=== PATIENT | male | born 1965 | race Caucasian/White ===

== ENCOUNTER 2019-03-14 06:07 | Inpatient (IN) ==
--- NOTE | 2019-03-02 10:45 | Anesthesiology Consultation ---
Date of Service March 02, 2019 Assessment & Plan Chart Review Chart Review: Acceptable Risk for Surgery and Patient NOT seen in Pre Admission Testing previous surgery canceled because of rash at surgery site History Surgery Operation Date: 03/14/19 07:15 Proposed Procedures p Aorto Bifemoral Bypass - Jose Raymond MD Height/Weight Height: 5 ft 6.5 in Weight: 83.007 kg Allergies Allergy/AdvReac Type Severity Reaction Status Date / Time No Known Allergies Allergy Verified 02/28/19 06:33 Medications Home Medications Medication Instructions Recorded Confirmed Last Taken albuterol sulfate 1 - 2 inh INHALATION UD PRN 02/15/19 03/01/19 02/28/19 05:30 aspirin [Aspir-81] 81 mg PO DAILY 02/15/19 03/01/19 02/28/19 05:30 bupropion HCl (smoking deter) 150 mg PO BID 02/15/19 03/01/19 02/28/19 05:30 cilostazol 100 mg PO BID 02/15/19 03/01/19 02/28/19 05:30 fluticasone propion-salmeterol 1 puff INHALATION BID 02/15/19 03/01/19 02/28/19 05:30 [Advair Diskus] nystatin 1 appln TOP TID #30 gm 02/28/19 03/01/19 Unknown Past Medical History Medical History Asthma Chronic bronchitis Pre-diabetes PVD (peripheral vascular disease) Snores POSSIBLY DX WITH SLEEP APNEA "WHEN I WAS A CHILD" - NO DEVICE Past Family History Family History Brother Family history of diabetes mellitus Brother Family history of diabetes mellitus Sister Family history of diabetes mellitus Grandmother Family history of diabetes mellitus Mother Family history of cancer Past Surgical History Surgical History History of plastic surgery FACIAL RECONSTRUCTION/DENIES LIMITED ROM WITH JAW History of surgery on extremity L LEG/HARDWARE Status post epidural steroid injection HX EPIDURAL STEROID 10 YR AGO Social History Smoking Status: Current every day smoker tobacco type: cigarettes Smoking cigarettes per day: .5PPD - 1PPD/ADVISED NPO Do You Dip or Chew Tobacco: No Hx Alcohol Use: No Hx Substance Use: No substance use type: marijuana Testing Electrocardiogram Date: 02/19/19 Findings: + NSR @ (82bpm) Stress Test Date: 01/30/19 Type: DSE Resting EF: 65% Resting RWMA: + none Pulmonary Function Test Date: 12/21/18 Pre-bronchodilator spirometry reveals a moderate to severe obstructive ventilatory defect even more pronounced at low lung volumes. There was an excellent response to bronchodilators, suggesting a reversible airways component. Lung volumes and diffusion capacity were not measured. Clinical correlation is needed.
--- NOTE | 2019-03-13 17:50 | History & Physical Report ---
Date of Service March 13, 2019 Assessment & Plan (1) Occlusion of aorta: Patient admitted for an aortobifemoral bypass. I have discussed the risks options and benefits of the procedure with the patient. The patient understands the risks options and benefits and agrees to the procedure. History of Present Illness Chief Complaint: Infrarenal aortic occlusion Primary Care Provider: Kelsey Schwartz PA-C Mr. Beard is a 53-year-old gentleman who for the last 2 years has had claudication of his lower extremity is gotten progressively worse. He now can walk a block before he has to stop from his claudication. This starts in his calves and goes up to his thighs. If he goes uphill he can even do a block. He does have pain in his feet at night at least 3 to 4 to 5 days during the week. He denies any tissue loss or discoloration of his feet. He does smoke but at this point he is down to 1/4 pack. Allergies Allergy/AdvReac Type Severity Reaction Status Date / Time No Known Allergies Allergy Verified 02/28/19 06:33 Home Medications Home Medications Medication Instructions Recorded Confirmed Type albuterol sulfate 1 - 2 inh INHALATION UD PRN 02/15/19 03/01/19 History aspirin [Aspir-81] 81 mg PO DAILY 02/15/19 03/01/19 History bupropion HCl (smoking deter) 150 mg PO BID 02/15/19 03/01/19 History cilostazol 100 mg PO BID 02/15/19 03/01/19 History fluticasone propion-salmeterol 1 puff INHALATION BID 02/15/19 03/01/19 History [Advair Diskus] nystatin 1 appln TOP TID #30 gm 02/28/19 03/01/19 Rx Past Med/Surg History Medical History Asthma Chronic bronchitis Pre-diabetes PVD (peripheral vascular disease) Snores POSSIBLY DX WITH SLEEP APNEA "WHEN I WAS A CHILD" - NO DEVICE Surgical History History of plastic surgery FACIAL RECONSTRUCTION/DENIES LIMITED ROM WITH JAW History of surgery on extremity L LEG/HARDWARE Status post epidural steroid injection HX EPIDURAL STEROID 10 YR AGO Family History Brother Family history of diabetes mellitus Brother Family history of diabetes mellitus Sister Family history of diabetes mellitus Grandmother Family history of diabetes mellitus Mother Family history of cancer Social History Preferred Language: [place] Communication Ability: Effective Electro Mechanical Engineer Required: No Beliefs That Will Affect Care: Judaism Judaism Beliefs: YAZIDISM Current Living Situation: Spouse Feels Safe at Home: Yes Smoking Status: Current every day smoker Tobacco Type: cigarettes ; Cigarettes Per Day: .5PPD - 1PPD/ADVISED NPO ; Second Hand Exposure: No ; Hx Alcohol Use: No Hx Substance Use: No Review of Systems All systems reviewed & are unremarkable except as noted in HPI & below Physical Exam Physical Exam: On exam the patient is awake and oriented x3. He is in no apparent distress. His blood pressure is 106/68 on the left 100/64 on the right. Head neck within normal limits he has no carotid bruits. Lungs are clear heart irregular rate and rhythm. Abdominal exam is benign. Radials carotids and superficial temporal arteries are +2 bilaterally. I cannot appreciate pulses in the lower extremity femorals downward. Neurologic exam is grossly intact. He does have normal capillary refill in his feet.
[~2019-03-14 06:07] MED LIST: LR 15ML/HR IV SCH; SODIUM CHLORIDE 0.9% 250 ML IV PRN
[2019-03-14] MEDS ORDERED: PROPOFOL IV EMULSION 10 MG/ML 20 ML VIAL IV ONE (07:05)
[2019-03-14] MEDS ORDERED: MIDAZOLAM HCL 1 MG/ML 2ML VIAL ONE (07:05)
[2019-03-14] MEDS ORDERED: fentaNYL citrate 100 MCG/2 ML VIAL ONE ×2 (07:05→09:52)
[2019-03-14] MEDS ORDERED: LIDOCAINE HCL 2% 2 ML VIAL/AMP(20MG/ML) INFIL ONE (07:05)
[2019-03-14] MEDS ORDERED: DEXAMETHASONE SOD INJ 4 MG/ML VIAL ONE (07:05)
[2019-03-14] MEDS ORDERED: ONDANSETRON INJ 2 MG/ML 2 ML VIAL ONE (07:05)
[2019-03-14] MEDS ORDERED: GELATIN SPONGE SZ 100 ONE ×2 (07:06→12:23)
[2019-03-14] MEDS ORDERED: THROMBIN FOR SOLN 20000 UNIT KIT ONE (07:06)
[2019-03-14] MEDS ORDERED: CEFAZOLIN 250 MG/ML 1 GM VIAL ONE ×2 (07:06→15:22)
[2019-03-14] MEDS ORDERED: HEPARIN (PORCINE) 1000 UNIT/ML 10 ML (CATH LAB USE ONLY) ONE (07:06)
[2019-03-14] MEDS ORDERED: ALBUTEROL 0.083% NEBU SOLN 3 ML VIAL INH PRN (07:10)
[2019-03-14] MEDS ORDERED: ATROPINE SULFATE 0.1 MG/ML 10ML SYR IV PRN (07:10)
[2019-03-14] MEDS ORDERED: ONDANSETRON INJ 2 MG/ML 2 ML VIAL IV PRN ×2 (07:10→15:33)
[2019-03-14] MEDS ORDERED: fentaNYL citrate 100 MCG/2 ML VIAL IV PRN ×2 (07:10→16:42)
[2019-03-14] MEDS ORDERED: HYDROmorphone INJ 2 MG/ML SYR/VIAL IV PRN (07:10)
[2019-03-14] MEDS ORDERED: ALBUT/IPRATROP 3MG/0.5MG NEB 3 ML VIAL NEB STA (07:10)
[2019-03-14] MEDS ORDERED: ePHEDrine sulfate 50 MG/ML AMP IV PRN (07:10)
[2019-03-14] MEDS ORDERED: CEFAZOLIN 2000MG 2,000 MG/15 ML SYR IV ONE ×2 (07:18→11:08)
[2019-03-14] MEDS ORDERED: CEFAZOLIN 2,000 MG/15 ML IV PUSH IV ONE (07:28)
[2019-03-14] MEDS ORDERED: ALBUMIN HUMAN 5% 12.5 GM/250 ML VIAL IV ONE (07:34)
[2019-03-14] MEDS ORDERED: CALCIUM CHLORIDE 10% 10 ML SYR IV ONE ×2 (07:34→12:43)
--- NOTE | 2019-03-14 07:39 | History & Physical Bridge Note ---
Date of Service March 14, 2019 History & Physical Bridge Note I have examined the patient, reviewed the History & Physical and in the interval since the performance of the History & Physical I have noted the following changes of clinical significance: no changes noted
[2019-03-14] MEDS ORDERED: ROCURONIUM BROMIDE 10 MG/ML 5 ML VIAL ONE ×8 (09:13→15:42)
--- NOTE | 2019-03-14 09:59 | Procedure Note ---
Procedure Note Date of Service March 14, 2019 Radial arterial line placed in OR 12 after induction in preparation for aortobifem bypass with Dr. Raymond. Left wrist prepped with chlorhexidine. 20 G angiocath placed under sterile technique utilizing sterile gloves, surgical hats and masks. Catheter threaded using seldinger technique with return of pulsatile, bright red blood. Site covered with occlusive dressing and taped in place. Waveform consistent with correct arterial placement. After placement, fingers of procedural hand had normal perfusion. Patient tolerated procedure well without complications. Alysha Espino MD, PhD Anesthesiologist Coding
[2019-03-14] MEDS ORDERED: HEPARIN SOD (PORCINE) 1000 UNIT/ML 10 ML VIAL ONE ×2 (10:53→11:39)
[2019-03-14] MEDS ORDERED: NITROGLYCERIN 5 MG/ML 10 ML VIAL ONE (12:00)
--- NOTE | 2019-03-14 13:07 | Consultation Report ---
DATE OF CONSULTATION: 03/14/2019 REASON FOR THE CONSULT: Traumatic Maria catheter attempt and need for Maria catheter placement emergently. HISTORY OF PRESENTATION: The patient is a 53-year-old male who presented with a ruptured aortic aneurysm who was urgently taken to the ER. The operating room staff attempted to place a Maria catheter, but met resistance on withdrawing the catheter. There was blood on the catheter and at the meatus. The patient had no obvious history of urologic problems per the chart and the patient was unconscious at the time of arrival. Because of the urgent situation and the blood, I decided to do a flexible cystoscopy in the operating room in the event that the patient had a stricture. I did not want to exacerbate the problem attempting to place another Maria catheter. Cystoscopy was thus performed and no obvious strictures were seen. There was some blood in the urethra, but no strictures were seen and the prostate had a high bladder neck. I did not go into the bladder because of the urgency of the situation. I removed the cystoscope and placed a coude Maria catheter with 16-Upper Sorbian without significant difficulty. At this point, the catheter was stabilized to the leg and the patient was ready for his Emergency procedure. We will be available for followup for this patient should be necessary. Please let us know if further help is needed, would remove the catheter when the patient is ambulatory.
[2019-03-14] MEDS ORDERED: PHENYLEPHRINE HCL 10 MG/ML VIAL ONE ×2 (14:20→14:46)
[2019-03-14] MEDS ORDERED: PROTAMINE SULFATE 10 MG/ML 5 ML VIAL ONE (14:20)
[2019-03-14] MEDS ORDERED: ePHEDrine sulfate 50 MG/ML SYR ONE (14:21)
[2019-03-14] MEDS ORDERED: EPINEPHrine INJ 1 MG/ML AMP ONE (14:21)
[2019-03-14] MEDS ORDERED: NOREPINEPHRINE BITARTRATE 1 MG/ML 4 ML VIAL IV ONE (14:46)
--- NOTE | 2019-03-14 15:33 | Post Operative Brief Note ---
Immediate Post Op Note v1 Date of Surgery March 14, 2019 Pre & Post Diagnosis Operation Date: 03/14/19 07:30 Pre-Op Diagnosis: Infrarenal Aortic Occlusion Post-Op Diagnosis: Infrarenal Aortic Occlusion I identified the patient and participated in the time-out.: Yes Procedure Operation Date: 03/14/19 07:30 Actual Procedures p Aortobifemoral Bypass(Bilateral) - Jose Raymond MD Surgeon Jose Raymond MD Molder Machine MD Donald Estimated Blood Loss 1,000 Findings Consistent with Post-Op Diagnosis Drains Maria Catheter ([address] Escalante. ) Anesthesia Type General Complications none Disposition Accompanied Patient To Recovery: No Disposition: Surgical ICU
[2019-03-14] MEDS ORDERED: D5W AND 1/2NSS 1,000 ML IV SCH (15:45)
--- NOTE | 2019-03-14 16:49 | Critical Care Consultation ---
Date of Consultation March 14, 2019 Assessment & Plan (1) Acute hypoxemic respiratory failure: Currently the patient is intubated and paralyzed. We will use Precedex and fentanyl for both sedation and analgesia, respectively. I have decreased his respiratory rate from 20-16 and effort to reduce air trapping. I have also reduced his tidal volumes to 420 mL. We can likely reduce his tidal volumes further once his oxygen saturations improved. He did receive large amount of volume during the surgery and has some findings of increased interstitial markings on chest x-ray. We will be judicious about further volume administration as needed. We will check a CBC and a CMP. We will check a lactate, troponin and EKG to evaluate for ischemia especially in light of the amount of blood loss he had. He does have a history of pretty significant airflow obstruction with an FEV1 of 35%. I have ordered for duo nebs to be used as needed. Monitor the incision site closely along with the distal pulses. Defer vascular management to Dr. Raymond. We will hopefully be able to perform a spontaneous breathing trial tomorrow morning and extubate him. CRITICAL CARE TIME - I have personally spent 30 minutes of critical care time in the direct management of this patient. This is a life/limb threatening event. This includes time spent evaluating patient, direct bedside care, chart review, placing orders, interpretation of diagnostic studies, discussion with consultants, patient, and family members, as well as other required patient management activities. This time is exclusive of all separately billable procedures, and teaching time and separate from and in addition to any other critical care service time. (2) Acute hypercapnic respiratory failure: (3) Chronic distal aortic occlusion: (4) S/P aortobifemoral bypass surgery: History of Present Illness Reason for Consultation: Ventilator management and blood loss post surgery Requesting Physician: Dr. Raymond Attending Physician: Jose Raymond MD History of Present Illness This is a 53-year-old male with a history of peripheral vascular disease, chronic distal aortic occlusion, severe COPD with an FEV1 of 35% predicted on 12/07/2018 who presents to the ICU status post aortobifemoral byp ass. Estimated blood loss during the procedure was approximately 1 L. He did receive 45 L of total volume which came the form of albumin and crystalloids. Please refer to the EMR and anesthesia charting for further details. There is no family at bedside. The patient is currently paralyzed since receiving rocuronium. Per report from anesthesia, the patient had some trouble with hypercapnic respiratory failure and air trapping and thus the decision was made to keep him intubated overnight. He also had some trouble with hypotension during the procedure and received some boluses of phenylephrine. During my exam his blood pressure was creeping up to the 170s systolically. We gave him a bolus of 50 mcg of fentanyl with improvement of blood pressure. We also obtain a chest x-ray which shows mildly increased interstitial markings. Otherwise review of systems is unable to be obtained due to the patient's current condition. Allergies Allergy/AdvReac Type Severity Reaction Status Date / Time No Known Allergies Allergy Verified 03/14/19 06:29 Home Medications Home Medications Medication Instructions Recorded Confirmed Type albuterol sulfate 1 - 2 inh INHALATION UD PRN 02/15/19 03/14/19 History aspirin [Aspir-81] 81 mg PO DAILY 02/15/19 03/14/19 History bupropion HCl (smoking deter) 150 mg PO BID 02/15/19 03/14/19 History cilostazol 100 mg PO BID 02/15/19 03/14/19 History fluticasone propion-salmeterol 1 puff INHALATION BID 02/15/19 03/14/19 History [Advair Diskus] nystatin 1 appln TOP TID #30 gm 02/28/19 03/14/19 Rx Patient History Medical History Asthma Chronic bronchitis Pre-diabetes PVD (peripheral vascular disease) Snores POSSIBLY DX WITH SLEEP APNEA "WHEN I WAS A CHILD" - NO DEVICE Surgical History History of plastic surgery FACIAL RECONSTRUCTION/DENIES LIMITED ROM WITH JAW History of surgery on extremity L LEG/HARDWARE Status post epidural steroid injection HX EPIDURAL STEROID 10 YR AGO Family History Brother Family history of diabetes mellitus Brother Family history of diabetes mellitus Sister Family history of diabetes mellitus Grandmother Family history of diabetes mellitus Mother Family history of cancer Social History Preferred Language: Japanese Communication Ability: Effective Merchandise Marker Required: No Beliefs That Will Affect Care: Moravian Moravian Beliefs: RASTAFARI Current Living Situation: Spouse Other Information That Helps Us Care for You: No Feels Safe at Home: Yes Safety Concerns: Feels Safe At This Time Smoking Status: Current every day smoker Tobacco Type: cigarettes ; Cigarettes Per Day: .5PPD - 1PPD/ADVISED NPO ; Do You Dip or Chew Tobacco: No ; Second Hand Exposure: No ; Tobacco Cessation Education Requested by Patient: No Hx Alcohol Use: No Hx Substance Use: No Review of Systems Review of Systems: Unobtainable due to endotracheal tube and Unobtainable due to reduced consciousness Physical Exam Constitutional: Patient is intubated and paralyzed with rocuronium. Eyes: Miotic pupils that are sluggish. ENMT: Patient is currently intubated and oral exam is limited. Neck: normal visual inspection Respiratory: Breath sounds equal bilaterally. No wheezes or rhonchi. Cardiovascular: RRR, no murmur, no edema Gastrointestinal (Abdomen): normal bowel sounds, soft, nontender, no hepatosplenomegaly Musculoskeletal: no cyanosis or clubbing, extremities motor strength 5/5 Skin: no rashes, warm and dry Large abdominal incision is present that is covered with a bandage. It is clean dry and intact. Neurologic: Patient is currently paralyzed Psychiatric: Unable to be assessed Results & Data ([facility]) Vital Signs (Past 12 Hours) Vital Signs Temp Pulse Resp BP BP Pulse Ox 03/14/19 16:12 98.2 F 101 H 20 147/85 H 100 03/14/19 06:43 97.7 F 85 16 133/83 93 I personally reviewed his prior echocardiogram, previous notes and chest imaging. Coding Level of Care Code New Pt Critical Care 1st 30-74 mins Patient Type New Diagnoses Acute hypoxemic respiratory failure J96.01 Acute hypercapnic respiratory failure J96.02 Chronic distal aortic occlusion I74.09 S/P aortobifemoral bypass surgery Z95.828 Time Spent (min) 30
[2019-03-14] MEDS ORDERED: SODIUM CHLORIDE 0.9% 250 ML IV PRN ×2 (16:56→18:38)
[2019-03-14 17:00] LABS: iSTAT Arterial Blood Gas HCO3 24 meg/L (19-24); iSTAT Arterial Blood Gas pCO2 57 mmHg (35-46); iSTAT Arterial Blood Gas pH 7.23 (7.35-7.45); iSTAT Arterial Blood Gas pO2 299 mmHg (80-95); iSTAT Carbon Dioxide 26 mmol/L (24-31); iSTAT Hematocrit 35 % (42-52); iSTAT Hemoglobin 11.9 g/dl (14.0-18.0); iSTAT Potassium 5.1 mmol/L (3.3-5.0); iSTAT Sodium 139 mmol/L (135-144)
[2019-03-14 17:00] LABS: iSTAT Arterial Blood Gas HCO3 23 meg/L (19-24); iSTAT Arterial Blood Gas pCO2 57 mmHg (35-46); iSTAT Arterial Blood Gas pO2 408 mmHg (80-95); iSTAT Carbon Dioxide 24 mmol/L (24-31); iSTAT Hematocrit 27 % (42-52); iSTAT Hemoglobin 9.2 g/dl (14.0-18.0); iSTAT Potassium 6.3 mmol/L (3.3-5.0); iSTAT Sodium 138 mmol/L (135-144)
[2019-03-14 17:00] LABS: iSTAT Arterial Blood Gas HCO3 24 meg/L (19-24); iSTAT Arterial Blood Gas pCO2 57 mmHg (35-46); iSTAT Arterial Blood Gas pH 7.23 (7.35-7.45); iSTAT Arterial Blood Gas pO2 293 mmHg (80-95); iSTAT Carbon Dioxide 25 mmol/L (24-31); iSTAT Hematocrit 34 % (42-52); iSTAT Hemoglobin 11.6 g/dl (14.0-18.0); iSTAT Potassium 5.2 mmol/L (3.3-5.0); iSTAT Sodium 139 mmol/L (135-144)
--- NOTE | 2019-03-14 17:01 | XRay Report ---
XR chest 1V portable CLINICAL HISTORY: s/p intubation COMPARISON STUDY: Chest radiograph November 29, 2018. FINDINGS: Tip of endotracheal tube is 5.9 cm above the matthew. Tip of the nasogastric tube is within the gastric fundus. There is no pneumothorax or pleural effusion. There is no evidence for pulmonary edema. Linear right midlung opacity is unchanged. This favors scarring. There are mild bibasilar opac ities. Upper abdominal skin vera are noted. IMPRESSION: 1. Satisfactory positioning of the endotracheal and nasogastric tubes. 2. Mild bibasilar opacities which may reflect atelectasis or consolidation. ACT 112: Negative or not required by law. Electronically signed by: Rhett Patton M.D. 03/14/2019 4:59 PM
[2019-03-14] MEDS: DEXMEDETOMIDINE HCL 200 MCG in SODIUM CHLORIDE 0.9% 48 ML IV SCH ×4 (17:06→23:05)
[2019-03-14] MEDS: fentaNYL DRIP 1,250 MCG/250 ML BAG IV SCH (17:06)
[2019-03-14] MEDS: CEFAZOLIN 2000MG 2,000 MG/15 ML SYR IV SCH (17:07)
--- NOTE | 2019-03-14 17:13 | Anesthesiology Progress Note ---
Date of Service March 14, 2019 Anesthesia Post Procedure Vital Signs Vital Signs: Temp Pulse Pulse Resp BP BP Pulse Ox 03/14/19 16:58 90 17 88 L 03/14/19 16:42 36.4 C L 89 16 128/64 88 L 03/14/19 16:32 90 14 151/73 H 88 L 03/14/19 16:22 102 H 16 171/94 H 97 03/14/19 16:15 20 03/14/19 16:12 36.8 C 101 H 20 147/85 H 100 03/14/19 06:43 36.5 C 85 16 133/83 93 Transfer of Care Handoff Completed per policy Notes Mental Status: see notes below Patient Amnestic to Procedure: Yes Nausea / Vomiting: adequately controlled Pain: adequately controlled Airway Patency, RR, SpO2: see Notes below BP & HR: stable & adequate Hydration State: stable & adequate Anesthetic Complications: no major complications apparent Notes: patient to ICU on vent as planned preoperatively. no pressors. full signout to icu team given. plan for sedation by icu team in place.
[2019-03-14 17:22] LABS: Hematocrit (blood only) 36.6 % (42-52); Hemoglobin 12.1 g/dL (14.0-18.0); Mean Corpuscular Hemoglobin 31.5 pg (25-34); Mean Corpuscular Volume 95.3 fL (80-100); Mean Platelet Volume 9.4 fL (7.4-10.4); Platelet Count 209 K/uL (130-400); RDW Coefficient of Variation 13.5 % (11.5-14.5); Red Blood Count 3.84 M/uL (4.7-6.1); White Blood Count 21.78 K/uL (4.8-10.8)
[2019-03-14 17:29] LABS: Mean Corpuscular Hgb Conc 33.1 g/dL (32-36)
[2019-03-14 17:38] LABS: INR 1.1 (0.9-1.1); Partial Thromboplastin Ratio 1.2; Prothrombin Time 11.4 Seconds (9.0-12.0)
[2019-03-14 17:47] LABS: Basophils # (auto) 0.02 K/uL (0-0.2); Basophils % (auto) 0.1 %; Echinocytes 1+; Immature Granulocytes # (auto) 0.11 K/uL (0.00-0.02); Immature Granulocytes % (auto) 0.5 %; Lymphocytes # (auto) 2.55 K/uL (1.2-3.4); Lymphocytes % (auto) 11.7 %; Monocytes % (auto) 4.6 %; Neutrophils % (auto) 83.1 %
[2019-03-14 17:58] LABS: Alanine Aminotransferase 22 U/L (12-78); Albumin Globulin Ratio 1.4 (0.9-2); Alkaline Phosphatase 55 U/L (45-117); Aspartate Aminotransferase 22 U/L (15-37); BUN Creatinine Ratio 15.5 (10-20); Bilirubin,Total 0.5 mg/dl (0.2-1); Blood Urea Nitrogen 21 mg/dl (7-18); Calcium 7.2 mg/dl (8.5-10.1); Carbon Dioxide 24 mmol/L (21-32); Chloride 113 mmol/L (98-107); Creatinine Clr Calc Pharmacy 65.3 ml/min; Est GFR (African American) 68.2; Est GFR (Non-African American) 58.9; Globulin 2.2 gm/dl (2.5-4.0); Glucose 222 mg/dl (70-99); Magnesium 1.5 mg/dl (1.8-2.4); Potassium 6.5 mmol/L (3.5-5.1); Sodium 138 mmol/L (136-145); Total Protein 5.2 gm/dl (6.4-8.2); Troponin I < 0.015 ng/ml (0-0.045)
[2019-03-14] MEDS ORDERED: SODIUM BICARB 8.4% INJ 50 MEQ/50 ML SYR IV STA ×2 (18:06→21:32)
[2019-03-14] MEDS ORDERED: CALCIUM GLUCONATE 10% 1,000 MG in SODIUM CHLORIDE 0.9% 50 ML IV STA (18:06)
[2019-03-14] MEDS ORDERED: FUROSEMIDE 20 MG in SYRINGE 0 ML IV ONE (18:06)
[2019-03-14] MEDS ORDERED: INSULIN HUMAN REGULAR PER UNIT 10 UNITS in SYRINGE 9.9 ML IV STA (18:17)
[2019-03-14] MEDS ORDERED: DEXTROSE 50% 50 ML SYRINGE IV ONE (18:17)
[2019-03-14 18:40] LABS: Hematocrit (blood only) 38.8 % (42-52); Mean Corpuscular Hemoglobin 31.9 pg (25-34); Mean Corpuscular Volume 95.3 fL (80-100); Mean Platelet Volume 9.7 fL (7.4-10.4); Platelet Count 197 K/uL (130-400); RDW Coefficient of Variation 13.5 % (11.5-14.5); RDW Standard Deviation 47.5 fL (36.4-46.3); Red Blood Count 4.07 M/uL (4.7-6.1)
[2019-03-14] MEDS ORDERED: PNEUMOCOCCAL Polysaccharide Vaccine 25mcg/0.5mL vial/Syr IM ONE (18:45)
[2019-03-14] MEDS ORDERED: PANTOprazole 80 MG in DEXTROSE 5% 100 ML IV SCH (19:00)
[2019-03-14 19:04] LABS: Calcium 7.2 mg/dl (8.5-10.1); Creatinine Clr Calc Pharmacy 58.9 ml/min; Est GFR (African American) 60.2; Est GFR (Non-African American) 51.9; Potassium 6.7 mmol/L (3.5-5.1)
[2019-03-14] MEDS ORDERED: SODIUM CHLORIDE 0.9% 1000ML 1,000 ML IV SCH (19:15)
[2019-03-14 19:17] LABS: Basophils # (auto) 0.02 K/uL (0-0.2); Basophils % (auto) 0.1 %; Immature Granulocytes # (auto) 0.09 K/uL (0.00-0.02); Immature Granulocytes % (auto) 0.4 %; Lymphocytes # (auto) 2.15 K/uL (1.2-3.4); Lymphocytes % (auto) 10.1 %; Mean Corpuscular Hgb Conc 33.5 g/dL (32-36); Monocytes # (auto) 0.85 K/uL (0.11-0.59); Neutrophils # (auto) 18.09 K/uL (1.4-6.5); Neutrophils % (auto) 85.4 %
[2019-03-14] MEDS: NORMOSOL-R 1,000 ML IV SCH (19:29)
[2019-03-14] MEDS ORDERED: NORMOSOL-R 1,000 ML IV ONE ×2 (20:13→21:48)
[2019-03-14] MEDS: ALBUT/IPRATROP 3MG/0.5MG NEB 3 ML VIAL NEB PRN (21:01)
[2019-03-14] MEDS ORDERED: GLUCOSE 10 TABS/TUBE PO PRN (21:26)
[2019-03-14] MEDS ORDERED: GLUCAGON FOR INJ 1 MG VIAL SQ PRN (21:26)
[2019-03-14] MEDS ORDERED: GLUCOSE 40% GEL 15 GM TUBE PO PRN (21:26)
[2019-03-14] MEDS ORDERED: CARBOHYDRATES FOR HYPOGLYCEMIA PO PRN (21:26)
[2019-03-14] MEDS ORDERED: DEXTROSE 50% 50 ML SYRINGE IV PRN (21:26)
[2019-03-14] MEDS: PHENYLEPHRINE HCL 20 MG in DEXTROSE 5% 500 ML IV SCH (21:51)
[2019-03-14] MEDS: INSULIN GLARGINE SOLOSTAR 100 UNITS/ML 3 ML PEN SC SCH (21:57)
[2019-03-14] MEDS: INSULIN ASPART 100 UNITS/ML 3 ML PEN SC SCH (21:59)
[2019-03-14] MEDS: PANTOprazole 40 MG in SYRINGE 0 ML IV SCH (22:20)
[2019-03-14 23:01] LABS: Hematocrit (blood only) 29.7 % (42-52); Hemoglobin 10.1 g/dL (14.0-18.0)
[2019-03-14 23:15] LABS: BUN Creatinine Ratio 14.2 (10-20); Calcium 6.5 mg/dl (8.5-10.1); Creatinine Clr Calc Pharmacy 55.2 ml/min; Est GFR (African American) 55.7; Est GFR (Non-African American) 48.1; Potassium 5.1 mmol/L (3.5-5.1)
[2019-03-14 23:38] LABS: Troponin I 0.025 ng/ml (0-0.045)
[2019-03-15] MEDS ORDERED: NORMOSOL-R 1,000 ML IV ONE (00:49)
[2019-03-15] MEDS: DEXMEDETOMIDINE HCL 200 MCG in SODIUM CHLORIDE 0.9% 48 ML IV SCH ×6 (00:53→17:57)
[2019-03-15] MEDS: NORMOSOL-R 1,000 ML IV SCH ×3 (01:46→17:10)
[2019-03-15] MEDS: fentaNYL DRIP 1,250 MCG/250 ML BAG IV SCH (01:46)
[2019-03-15] MEDS: CEFAZOLIN 2000MG 2,000 MG/15 ML SYR IV SCH ×2 (01:46→09:33)
[2019-03-15] MEDS: ALBUT/IPRATROP 3MG/0.5MG NEB 3 ML VIAL NEB PRN ×5 (02:13→23:12)
[2019-03-15 03:26] LABS: Basophils # (auto) 0.01 K/uL (0-0.2); Basophils % (auto) 0.1 %; Hematocrit (blood only) 31.1 % (42-52); Hemoglobin 10.8 g/dL (14.0-18.0); Immature Granulocytes # (auto) 0.04 K/uL (0.00-0.02); Immature Granulocytes % (auto) 0.3 %; Lymphocytes # (auto) 1.09 K/uL (1.2-3.4); Lymphocytes % (auto) 7.9 %; Mean Corpuscular Hgb Conc 34.7 g/dL (32-36); Mean Platelet Volume 9.1 fL (7.4-10.4); Monocytes # (auto) 1.57 K/uL (0.11-0.59); Monocytes % (auto) 11.3 %; Neutrophils # (auto) 11.13 K/uL (1.4-6.5); Neutrophils % (auto) 80.4 %; Platelet Count 179 K/uL (130-400); RDW Coefficient of Variation 13.6 % (11.5-14.5); RDW Standard Deviation 45.4 fL (36.4-46.3); Red Blood Count 3.38 M/uL (4.7-6.1); White Blood Count 13.84 K/uL (4.8-10.8)
[2019-03-15 03:35] LABS: Base Excess ABG -5.3 mEq/L (-9-1.8); HCO3 ABG 22 mmol/L (19-24); Oxygen Saturation ABG 92.9 % (90-95); PCO2 ABG 50 mmHg (35-46); PO2 ABG 69 mmHg (80-95); pH ABG 7.26 (7.35-7.45)
[2019-03-15 03:38] LABS: Allen Test POS (Pos)
[2019-03-15 03:46] LABS: BUN Creatinine Ratio 12.9 (10-20); Blood Urea Nitrogen 22 mg/dl (7-18); Calcium 6.4 mg/dl (8.5-10.1); Carbon Dioxide 22 mmol/L (21-32); Chloride 110 mmol/L (98-107); Creatinine Clr Calc Pharmacy 52.3 ml/min; Est GFR (African American) 52.2; Glucose 166 mg/dl (70-99); Sodium 140 mmol/L (136-145)
[2019-03-15 03:50] LABS: Troponin I < 0.015 ng/ml (0-0.045)
[2019-03-15] MEDS ORDERED: CALCIUM GLUCONATE 10% 1,000 MG in SODIUM CHLORIDE 0.9% 50 ML IV STA (04:21)
[2019-03-15] MEDS ORDERED: ALBUMIN 25% 50 ML with FUROSEMIDE 20 MG IV ONE (04:30)
[2019-03-15 04:44] LABS: Magnesium 1.6 mg/dl (1.8-2.4); Phosphorus 2.8 mg/dl (2.5-4.9)
[2019-03-15] MEDS: INSULIN ASPART 100 UNITS/ML 3 ML PEN SC SCH ×4 (05:36→21:04)
[2019-03-15] MEDS: PHENYLEPHRINE HCL 20 MG in DEXTROSE 5% 500 ML IV SCH ×2 (05:36→17:44)
[2019-03-15] MEDS: MAGNESIUM SULFATE / D5W 1 GM/100 ML BAG IV SCH ×3 (06:40→08:47)
--- NOTE | 2019-03-15 07:37 | XRay Report ---
XR chest 1V portable HISTORY: Resp failure COMPARISON: Chest 03/14/2019. FINDINGS: The nasogastric tube terminates in the stomach. Skin vera seen within the epigastric reg ion. Endotracheal tube terminates 3.3 cm from the matthew. Hazy appearance to the right midlung zone a nd right lung base. There is also small patchy airspace opacity within the left lung base medially. N o evidence for pulmonary edema. No pleural effusions. No pneumothorax. The heart is normal in size. IMPRESSION: 1. Satisfactory support line placement. 2. Hazy airspace opacity within the lung bases and right midlung zone. This could represent atelectas is or pneumonia. ACT 112: Negative or not required by law. Electronically signed by: Senthil Calle M.D. 03/15/2019 7:36 AM
[2019-03-15 07:53] LABS: Hematocrit (blood only) 28.8 % (42-52); Hemoglobin 9.8 g/dL (14.0-18.0)
--- NOTE | 2019-03-15 08:19 | Anesthesiology Progress Note ---
Date of Service March 15, 2019 Anesthesia Post Procedure Vital Signs Vital Signs: Temp Pulse Pulse Pulse Resp BP BP 03/15/19 06:55 91 H 13 03/15/19 06:03 90 12 03/15/19 06:02 91 H 12 111/54 L 03/15/19 04:54 88 12 106/61 03/15/19 04:45 90 12 03/15/19 04:30 90 12 03/15/19 04:24 83 12 88/64 L 03/15/19 04:15 73 12 03/15/19 04:00 36.7 C 88 12 03/15/19 03:54 88 12 106/86 03/15/19 03:45 90 14 03/15/19 03:30 91 H 12 03/15/19 03:24 88 12 110/60 03/15/19 03:15 84 12 03/15/19 03:00 84 12 03/15/19 02:56 86 22 03/15/19 02:54 90 14 89/62 L 03/15/19 02:45 85 14 03/15/19 02:30 88 16 03/15/19 02:24 87 16 106/70 03/15/19 02:15 85 16 03/15/19 02:13 85 21 03/15/19 02:00 83 20 03/15/19 01:54 86 16 102/65 03/15/19 01:45 82 16 03/15/19 01:30 82 16 03/15/19 01:24 84 16 99/68 L 03/15/19 01:15 81 16 03/15/19 01:00 82 85 16 111/66 03/15/19 00:53 80 17 111/66 03/15/19 00:45 87 17 03/15/19 00:38 87 16 91/64 L 03/15/19 00:30 84 18 03/15/19 00:23 86 16 95/66 L 03/15/19 00:15 88 16 03/15/19 00:08 85 16 100/68 03/15/19 00:00 36.5 C 85 17 03/14/19 23:53 90 17 115/48 L 03/14/19 23:45 90 16 03/14/19 23:39 88 16 100/53 L 03/14/19 23:30 87 16 03/14/19 23:15 81 16 03/14/19 23:08 89 16 100/66 03/14/19 23:00 91 H 16 03/14/19 22:55 90 16 03/14/19 22:54 92 H 17 107/65 03/14/19 22:52 86 18 03/14/19 22:45 84 18 03/14/19 22:38 86 20 102/73 03/14/19 22:30 92 H 20 03/14/19 22:23 89 18 122/77 03/14/19 22:15 85 18 03/14/19 22:09 88 17 03/14/19 22:08 87 17 118/91 03/14/19 22:00 86 17 03/14/19 21:53 88 17 93/57 L 03/14/19 21:45 91 H 17 03/14/19 21:38 90 17 75/55 L 03/14/19 21:30 89 17 03/14/19 21:23 90 17 80/57 L 03/14/19 21:17 87 19 03/14/19 21:15 88 17 03/14/19 21:08 92 H 18 88/58 L 03/14/19 21:00 88 17 03/14/19 20:53 88 17 94/62 L 03/14/19 20:45 91 H 17 03/14/19 20:38 90 17 92/42 L 03/14/19 20:30 89 91 H 20 92/42 L 03/14/19 20:23 93 H 99/59 L 03/14/19 20:15 88 03/14/19 20:08 92 H 99/58 L 03/14/19 20:00 36.5 C 97 H 03/14/19 19:53 85 81/59 L 03/14/19 19:45 86 03/14/19 19:37 96 H 115/83 03/14/19 19:33 87 100/62 03/14/19 19:30 88 03/14/19 19:28 82 100/62 03/14/19 19:23 91 H 110/68 03/14/19 19:19 88 80/48 L 03/14/19 19:16 92 H 03/14/19 19:15 90 94/51 L 03/14/19 19:13 94 H 94/58 L 03/14/19 19:08 96 H 92/57 L 03/14/19 19:00 90 03/14/19 18:53 93 H 86/65 L 03/14/19 18:51 92 H 72/53 L 03/14/19 18:46 36.4 C L 94 H 89/55 L 03/14/19 18:45 95 H 03/14/19 18:38 94 H 95/64 L 03/14/19 18:37 95 H 97/53 L 03/14/19 18:31 95 H 03/14/19 18:30 95 H 96/57 L 03/14/19 18:23 94 H 115/64 03/14/19 18:15 100 H 03/14/19 18:08 93 H 111/69 03/14/19 18:00 93 H 03/14/19 17:53 90 120/65 03/14/19 17:45 36.5 C 91 H 03/14/19 17:41 16 03/14/19 17:38 90 119/63 03/14/19 17:31 90 03/14/19 17:30 36.4 C L 90 120/65 03/14/19 17:23 36.4 C L 90 120/59 L 03/14/19 17:18 36.4 C L 88 16 135/85 03/14/19 17:15 36.4 C L 90 03/14/19 17:08 90 135/65 03/14/19 17:02 90 03/14/19 16:58 90 17 03/14/19 16:53 89 128/64 03/14/19 16:42 36.4 C L 89 16 128/64 03/14/19 16:32 90 14 151/73 H 03/14/19 16:22 102 H 16 171/94 H 03/14/19 16:15 20 03/14/19 16:12 36.8 C 101 H 20 147/85 H Pulse Ox 03/15/19 06:55 96 03/15/19 06:03 97 03/15/19 06:02 94 03/15/19 04:54 93 03/15/19 04:45 94 03/15/19 04:30 93 03/15/19 04:24 93 03/15/19 04:15 92 03/15/19 04:00 94 03/15/19 03:54 94 03/15/19 03:45 94 03/15/19 03:30 94 03/15/19 03:24 94 03/15/19 03:15 96 03/15/19 03:00 95 03/15/19 02:56 93 03/15/19 02:54 93 03/15/19 02:45 94 03/15/19 02:30 92 03/15/19 02:24 92 03/15/19 02:15 93 03/15/19 02:13 96 03/15/19 02:00 95 03/15/19 01:54 96 03/15/19 01:45 95 03/15/19 01:30 96 03/15/19 01:24 97 03/15/19 01:15 96 03/15/19 01:00 95 03/15/19 00:53 97 03/15/19 00:45 96 03/15/19 00:38 97 03/15/19 00:30 94 03/15/19 00:23 96 03/15/19 00:15 95 03/15/19 00:08 96 03/15/19 00:00 95 03/14/19 23:53 96 03/14/19 23:45 96 03/14/19 23:39 97 03/14/19 23:30 96 03/14/19 23:15 97 03/14/19 23:08 03/14/19 23:00 96 03/14/19 22:55 96 03/14/19 22:54 97 03/14/19 22:52 96 03/14/19 22:45 96 03/14/19 22:38 97 03/14/19 22:30 96 03/14/19 22:23 97 03/14/19 22:15 98 03/14/19 22:09 99 03/14/19 22:08 99 03/14/19 22:00 97 03/14/19 21:53 96 03/14/19 21:45 95 03/14/19 21:38 94 03/14/19 21:30 94 03/14/19 21:23 94 03/14/19 21:17 91 03/14/19 21:15 94 03/14/19 21:08 95 03/14/19 21:00 94 03/14/19 20:53 94 02/05/20 20:45 94 03/14/19 20:38 93 03/14/19 20:30 94 03/14/19 20:23 94 03/14/19 20:15 95 03/14/19 20:08 95 03/14/19 20:00 94 03/14/19 19:53 96 03/14/19 19:45 95 03/14/19 19:37 97 03/14/19 19:33 96 03/14/19 19:30 95 03/14/19 19:28 96 03/14/19 19:23 96 03/14/19 19:19 94 03/14/19 19:16 93 03/14/19 19:15 93 03/14/19 19:13 93 03/14/19 19:08 93 03/14/19 19:00 90 03/14/19 18:53 90 03/14/19 18:51 91 03/14/19 18:46 90 03/14/19 18:45 90 03/14/19 18:38 89 L 03/14/19 18:37 88 L 03/14/19 18:31 03/14/19 18:30 03/14/19 18:23 03/14/19 18:15 87 L 03/14/19 18:08 87 L 03/14/19 18:00 88 L 03/14/19 17:53 86 L 03/14/19 17:45 86 L 03/14/19 17:41 03/14/19 17:38 86 L 03/14/19 17:31 86 L 03/14/19 17:30 85 L 03/14/19 17:23 85 L 03/14/19 17:18 88 L 03/14/19 17:15 84 L 03/14/19 17:08 86 L 03/14/19 17:02 86 L 03/14/19 16:58 88 L 03/14/19 16:53 86 L 03/14/19 16:42 88 L 03/14/19 16:32 88 L 03/14/19 16:22 97 03/14/19 16:15 03/14/19 16:12 100 Notes Mental Status: alert / awake / arousable and participated in evaluation Patient Amnestic to Procedure: Yes Nausea / Vomiting: adequately controlled Pain: adequately controlled Airway Patency, RR, SpO2: see Notes below BP & HR: stable & adequate Hydration State: stable & adequate Anesthetic Complications: see Notes below Notes: Pt remains intubated in ICU due to hypercapnia during anesthesia for abdominal aortic aneurysm on 03/14/19. Pt alert and per RN, with good respiratory effort, possible extubation today. No other anesthesia complications apparent.
[2019-03-15 08:28] LABS: BUN Creatinine Ratio 13.2 (10-20); Calcium 6.7 mg/dl (8.5-10.1); Creatinine Clr Calc Pharmacy 51.7 ml/min; Est GFR (African American) 49.7; Est GFR (Non-African American) 42.9
[2019-03-15] MEDS: PANTOprazole 40 MG in SYRINGE 0 ML IV SCH ×2 (08:39→22:31)
--- NOTE | 2019-03-15 09:14 | Critical Care Progress Note ---
Date of Service March 15, 2019 Assessment & Plan (1) Acute hypoxemic respiratory failure: Patient is tolerating CPAP well. We will extubate him directly to BiPAP. Continue duo nebs PRN. He will need to be on Umeclidinium inhaled once daily. His creatinine has worsened a bit, but his potassium are improving and his urine output is also improving.. His potassium is improved. Blood pressure control per Dr. Raymond. He is receiving some Bumex for volume overload. Troponin has been unremarkable. Hemoglobin has trended down to 9.8 but appears to be stable with no active blood loss. No need for transfusion at this time. Disposition per Dr. Raymond. CRITICAL CARE TIME - I have personally spent 30 minutes of critical care time in the direct management of this patient. This is a life/limb threatening event. This includes time spent evaluating patient, direct bedside care, chart review, placing orders, interpretation of diagnostic studies, discussion with consultants, patient, and family members, as well as other required patient management activities. This time is exclusive of all separately billable procedures, and teaching time and separate from and in addition to any other critical care service time. (2) Acute hypercapnic respiratory failure: (3) Chronic distal aortic occlusion: (4) S/P aortobifemoral bypass surgery: Subjective Patient seen and examined this morning. He is off of his fentanyl and currently on Precedex. He is alert and awake. He is able to follow commands. He would like the breathing tube out. He has been on a CPAP trial for the last 4 hours. He did have some hypotension overnight and received some fluid, albumin boluses. He also received Lasix. He did have some issues with hyperkalemia last night as well which is improving. He denies any pain. He is a bit anxious. He is still on a low-dose of phenylephrine. Review of Systems Review of Systems: Unobtainable due to endotracheal tube Physical Exam Constitutional: Endotracheal tube in place. Neck: normal visual inspection Cardiovascular: RRR, no murmur, no edema Gastrointestinal (Abdomen): normal bowel sounds, soft, nontender, no hepatosplenomegaly Large bandage over the abdominal wound. Musculoskeletal: no cyanosis or clubbing, extremities motor strength 5/5 Skin: no rashes, warm and dry Neurologic: He is following commands appropriately. He is alert. Results & Data ([facility]) Vital Signs (Past 12 Hours) Vital Signs Temp Pulse Pulse Resp BP BP Pulse Ox 03/15/19 06:55 91 H 13 96 03/15/19 06:03 90 12 97 03/15/19 06:02 91 H 12 111/54 L 94 03/15/19 04:54 88 12 106/61 93 03/15/19 04:45 90 12 94 03/15/19 04:30 90 12 93 03/15/19 04:24 83 12 88/64 L 93 03/15/19 04:15 73 12 92 03/15/19 04:00 98.1 F 88 12 94 03/15/19 03:54 88 12 106/86 94 03/15/19 03:45 90 14 94 03/15/19 03:30 91 H 12 94 03/15/19 03:24 88 12 110/60 94 03/15/19 03:15 84 12 96 03/15/19 03:00 84 12 95 03/15/19 02:56 86 22 93 03/15/19 02:54 90 14 89/62 L 93 03/15/19 02:45 85 14 94 03/15/19 02:30 88 16 92 03/15/19 02:24 87 16 106/70 92 03/15/19 02:15 85 16 93 03/15/19 02:13 85 21 96 03/15/19 02:00 83 20 95 03/15/19 01:54 86 16 102/65 96 03/15/19 01:45 82 16 95 03/15/19 01:30 82 16 96 03/15/19 01:24 84 16 99/68 L 97 03/15/19 01:15 81 16 96 03/15/19 01:00 82 85 16 111/66 95 03/15/19 00:53 80 17 111/66 97 03/15/19 00:45 87 17 96 03/15/19 00:38 87 16 91/64 L 97 03/15/19 00:30 84 18 94 03/15/19 00:23 86 16 95/66 L 96 03/15/19 00:15 88 16 95 03/15/19 00:08 85 16 100/68 96 03/15/19 00:00 97.7 F 85 17 95 03/14/19 23:53 90 17 115/48 L 96 03/14/19 23:45 90 16 96 03/14/19 23:39 88 16 100/53 L 97 03/14/19 23:30 87 16 96 03/14/19 23:15 81 16 97 03/14/19 23:08 89 16 100/66 03/14/19 23:00 91 H 16 96 03/14/19 22:55 90 16 96 03/14/19 22:54 92 H 17 107/65 97 03/14/19 22:52 86 18 96 03/14/19 22:45 84 18 96 03/14/19 22:38 86 20 102/73 97 03/14/19 22:30 92 H 20 96 03/14/19 22:23 89 18 122/77 97 03/14/19 22:15 85 18 98 03/14/19 22:09 88 17 99 03/14/19 22:08 87 17 118/91 99 03/14/19 22:00 86 17 97 03/14/19 21:53 88 17 93/57 L 96 03/14/19 21:45 91 H 17 95 03/14/19 21:38 90 17 75/55 L 94 03/14/19 21:30 89 17 94 03/14/19 21:23 90 17 80/57 L 94 03/14/19 21:17 87 19 91 03/14/19 21:15 88 17 94 Coding Level of Care Code Critical Care 1st 30-74 mins Diagnoses Acute hypoxemic respiratory failure J96.01 Acute hypercapnic respiratory failure J96.02 Chronic distal aortic occlusion I74.09 S/P aortobifemoral bypass surgery Z95.828 Time Spent (min) 30
[2019-03-15] MEDS ORDERED: BUMETANIDE 1 MG in SYRINGE 0 ML IV ONE (09:15)
[2019-03-15] MEDS: MoRPHine SULFATE 4 MG/ML 1 ML CARP\\VIAL IV PRN ×3 (12:35→20:54)
--- NOTE | 2019-03-15 13:13 | Electrocardiogram Report ---
Test Reason : Blood Pressure : / mmHG Vent. Rate : 099 BPM Atrial Rate : 099 BPM P-R Int : 154 ms QRS Dur : 076 ms QT Int : 340 ms P-R-T Axes : 068 027 065 degrees QTc Int : 436 ms Normal sinus rhythm Low voltage QRS Borderline ECG When compared with ECG of 19-FEB-2019 13:31, No significant change was found Confirmed by Kody Garcia ([id number]) on 03/15/2019 1:12:40 PM Referred By: Jose Raymond Confirmed By:Kody Garcia
--- NOTE | 2019-03-15 15:15 | Surgery Progress Note ---
Date of Service March 15, 2019 Assessment & Plan (1) Occlusion of aorta: Patient is stabilized on his first day postoperatively after fluid resuscitation. His creatinine still is slightly elevated however his urine output has picked up. His blood pressure is stable on off pressors at this time. He was given a dose of Lasix followed by a dose of Bumex this morning. We will continue with gentle diuresis over the next few days. Subjective Patient is now extubated. He is awake and alert and answering questions appropriately. He does complain of some abdominal discomfort. He denies any leg pain. Physical Exam Physical Exam: On exam he is awake and alert. He has decreased breath sounds in a few crackles in both lungs. Abdomen is distended. Is tender to palpation however it is soft. No bowel sounds are heard. He does have good Doppler pulses in both feet. His urine output has increased. He is now off the Levophed and his blood p ressure is stable. Constitutional: WD/WN, vitals as above Results & Data Vital Signs (Past 12 Hours) Vital Signs Temp Pulse Pulse Resp BP BP Pulse Ox 03/15/19 13:54 103 H 17 99/57 L 03/15/19 13:48 103 H 21 92 03/15/19 13:42 105 H 21 91 03/15/19 13:26 108 H 15 92 03/15/19 13:25 110 H 16 101/71 92 03/15/19 13:00 111 H 14 91 03/15/19 12:54 113 H 14 93/72 L 95 03/15/19 12:30 101 H 17 91 03/15/19 12:24 105 H 20 108/76 93 03/15/19 11:54 37.5 C 99 H 17 121/77 91 03/15/19 11:25 99 H 20 93 03/15/19 11:24 99 H 21 104/84 93 03/15/19 10:54 92 H 18 104/62 94 03/15/19 10:52 93 H 26 H 93 03/15/19 10:24 88 16 114/58 L 91 03/15/19 09:54 37.6 C H 97 H 15 93/60 L 89 L 03/15/19 09:44 96 H 17 82/53 L 92 03/15/19 09:43 94 H 89/62 L 92 03/15/19 09:35 93 H 21 96 02/06/20 09:30 93 H 96 03/15/19 09:25 121 H 95/71 L 98 03/15/19 08:54 90 97/73 L 89 L 03/15/19 08:24 88 103/62 89 L 03/15/19 07:54 92 H 105/73 93 03/15/19 07:46 37.4 C 90 103/66 92 03/15/19 07:30 90 03/15/19 07:25 96 H 90/36 L 96 03/15/19 06:55 91 H 13 96 03/15/19 06:03 90 12 97 03/15/19 06:02 91 H 12 111/54 L 94 03/15/19 04:54 88 12 106/61 93 03/15/19 04:45 90 12 94 03/15/19 04:30 90 12 93 03/15/19 04:24 83 12 88/64 L 93 03/15/19 04:15 73 12 92 03/15/19 04:00 36.7 C 88 12 94 03/15/19 03:54 88 12 106/86 94 03/15/19 03:45 90 14 94 03/15/19 03:30 91 H 12 94 03/15/19 03:24 88 12 110/60 94 03/15/19 03:15 84 12 96
[2019-03-15 16:23] LABS: iSTAT Hematocrit 34 % (42-52); iSTAT Hemoglobin 11.6 g/dl (14.0-18.0); iSTAT Potassium 6.5 mmol/L (3.3-5.0); iSTAT Sodium 138 mmol/L (135-144)
[2019-03-15 16:24] LABS: Patient Temperature 36.6; iSTAT Art Bld Gas pCO2 Correct 67 mmHg (35-46); iSTAT Arterial Blood Gas HCO3 21 meg/L (19-24); iSTAT Arterial Blood Gas pCO2 68 mmHg (35-46); iSTAT Arterial Blood Gas pO2 60 mmHg (80-95); iSTAT Arterial Blood Gas pO2 C 59; iSTAT Carbon Dioxide 23 mmol/L (24-31)
[2019-03-15 16:25] LABS: iSTAT Allen Test Not Performed; iSTAT Sample Type Arterial; iSTAT Site Art Line; iSTAT SpO2 86
[2019-03-15 16:26] LABS: iSTAT Hemoglobin 11.6 g/dl (14.0-18.0); iSTAT Potassium 6.8 mmol/L (3.3-5.0); iSTAT Sodium 136 mmol/L (135-144)
[2019-03-15 16:27] LABS: Patient Temperature 36.3; iSTAT Art Bld Gas pCO2 Correct 52 mmHg (35-46); iSTAT Art Bld Gas pH Corrected 7.177 (7.35-7.45); iSTAT Arterial Blood Gas HCO3 19 meg/L (19-24); iSTAT Arterial Blood Gas pCO2 53 mmHg (35-46); iSTAT Arterial Blood Gas pH 7.17 (7.35-7.45); iSTAT Arterial Blood Gas pO2 68 mmHg (80-95); iSTAT Arterial Blood Gas pO2 C 65; iSTAT Carbon Dioxide 21 mmol/L (24-31); iSTAT FiO2 60 %; iSTAT Hematocrit 34 % (42-52)
[2019-03-15 16:28] LABS: iSTAT Allen Test Not Performed; iSTAT Sample Type Arterial; iSTAT Site Art Line
[2019-03-15 16:29] LABS: iSTAT SpO2 91
[2019-03-15 16:29] LABS: iSTAT Hematocrit 27 % (42-52); iSTAT Hemoglobin 9.2 g/dl (14.0-18.0); iSTAT Potassium 5.3 mmol/L (3.3-5.0); iSTAT Sodium 139 mmol/L (135-144)
[2019-03-15 16:30] LABS: iSTAT Art Bld Gas pCO2 Correct 48 mmHg (35-46); iSTAT Arterial Blood Gas HCO3 19 meg/L (19-24); iSTAT Arterial Blood Gas pCO2 49 mmHg (35-46); iSTAT Arterial Blood Gas pO2 68 mmHg (80-95); iSTAT Arterial Blood Gas pO2 C 65; iSTAT Carbon Dioxide 21 mmol/L (24-31)
[2019-03-15 16:32] LABS: Patient Temperature 36.4; iSTAT Allen Test Not Performed; iSTAT FiO2 50 %; iSTAT Sample Type Arterial
[2019-03-15 16:33] LABS: iSTAT Site Art Line; iSTAT SpO2 94
[2019-03-15 16:34] LABS: iSTAT Art Bld Gas pCO2 Correct 49 mmHg (35-46); iSTAT Art Bld Gas pH Corrected 7.246 (7.35-7.45); iSTAT Arterial Blood Gas HCO3 21 meg/L (19-24); iSTAT Arterial Blood Gas pCO2 50 mmHg (35-46); iSTAT Arterial Blood Gas pH 7.24 (7.35-7.45); iSTAT Arterial Blood Gas pO2 65 mmHg (80-95); iSTAT Arterial Blood Gas pO2 C 62; iSTAT Carbon Dioxide 23 mmol/L (24-31); iSTAT Hematocrit 29 % (42-52); iSTAT Hemoglobin 9.9 g/dl (14.0-18.0); iSTAT Sodium 139 mmol/L (135-144)
[2019-03-15 16:35] LABS: Patient Temperature 36.4; iSTAT Allen Test Not Performed; iSTAT FiO2 50 %; iSTAT Sample Type Arterial; iSTAT Site Art Line
[2019-03-15 16:36] LABS: iSTAT Sodium 138 mmol/L (135-144)
[2019-03-15 16:36] LABS: iSTAT SpO2 96
[2019-03-15 16:37] LABS: Patient Temperature 36.4; iSTAT Art Bld Gas pCO2 Correct 50 mmHg (35-46); iSTAT Art Bld Gas pH Corrected 7.232 (7.35-7.45); iSTAT Arterial Blood Gas HCO3 21 meg/L (19-24); iSTAT Arterial Blood Gas pCO2 52 mmHg (35-46); iSTAT Arterial Blood Gas pH 7.22 (7.35-7.45); iSTAT Arterial Blood Gas pO2 73 mmHg (80-95); iSTAT Arterial Blood Gas pO2 C 70; iSTAT Carbon Dioxide 23 mmol/L (24-31); iSTAT FiO2 50 %; iSTAT Hematocrit 28 % (42-52); iSTAT Hemoglobin 9.5 g/dl (14.0-18.0); iSTAT Potassium 4.8 mmol/L (3.3-5.0)
[2019-03-15 16:38] LABS: iSTAT Allen Test Not Performed; iSTAT Sample Type Arterial; iSTAT Site Art Line; iSTAT SpO2 94
[2019-03-15] MEDS: BUDESONIDE 0.5 MG/2 ML VIAL (PULMICORT) NEB SCH (19:01)
[2019-03-15] MEDS: INSULIN GLARGINE SOLOSTAR 100 UNITS/ML 3 ML PEN SC SCH (21:04)
[2019-03-16] MEDS: MoRPHine SULFATE 4 MG/ML 1 ML CARP\\VIAL IV PRN ×3 (02:54→07:52)
[2019-03-16] MEDS: NORMOSOL-R 1,000 ML IV SCH (02:54)
[2019-03-16] MEDS: ALBUT/IPRATROP 3MG/0.5MG NEB 3 ML VIAL NEB PRN ×3 (03:30→19:01)
[2019-03-16 04:38] LABS: Basophils # (auto) 0.01 K/uL (0-0.2); Basophils % (auto) 0.1 %; Hematocrit (blood only) 25.5 % (42-52); Hemoglobin 8.5 g/dL (14.0-18.0); Immature Granulocytes # (auto) 0.06 K/uL (0.00-0.02); Immature Granulocytes % (auto) 0.4 %; Lymphocytes # (auto) 0.73 K/uL (1.2-3.4); Lymphocytes % (auto) 4.7 %; Mean Corpuscular Hemoglobin 31.4 pg (25-34); Mean Corpuscular Hgb Conc 33.3 g/dL (32-36); Mean Corpuscular Volume 94.1 fL (80-100); Mean Platelet Volume 9.2 fL (7.4-10.4); Monocytes % (auto) 15.6 %; Neutrophils # (auto) 12.19 K/uL (1.4-6.5); Neutrophils % (auto) 79.2 %; Platelet Count 127 K/uL (130-400); RDW Coefficient of Variation 14.3 % (11.5-14.5); Red Blood Count 2.71 M/uL (4.7-6.1); White Blood Count 15.39 K/uL (4.8-10.8)
[2019-03-16 05:03] LABS: Calcium 6.7 mg/dl (8.5-10.1); Creatinine Clr Calc Pharmacy 53.2 ml/min; Est GFR (African American) 51.5; Est GFR (Non-African American) 44.4; Magnesium 2.6 mg/dl (1.8-2.4); Potassium 4.5 mmol/L (3.5-5.1)
[2019-03-16 05:04] LABS: Phosphorus 3.1 mg/dl (2.5-4.9)
[2019-03-16] MEDS ORDERED: CALCIUM GLUCONATE 10% 1,000 MG in SODIUM CHLORIDE 0.9% 50 ML IV STA (05:16)
--- NOTE | 2019-03-16 06:59 | XRay Report ---
XR chest 1V portable HISTORY: 53 years-old Male f/u follow-up study in a patient with recent respiratory failure COMPARISON: Chest radiograph 03/15/2019 TECHNIQUE: AP view of the chest FINDINGS: Interval extubation. Enteric tube is again noted with distal tip projecting over the abdominal left u pper quadrant. Surgical vera project over the upper abdomen midline. Mild persistent right midlung and bibasilar opacities. No pneumothorax, large pleural effusion or overt pulmonary edema. Bones frieda ear grossly intact. IMPRESSION: 1. Interval extubation. 2. Mild persistent bibasilar and right midlung opacities. ACT 112: Negative or not required by law. The above report was generated using voice recognition software. It may contain grammatical, syntax o r spelling errors. Electronically signed by: Joao Garcia M.D. 03/16/2019 6:58 AM
[2019-03-16] MEDS: INSULIN ASPART 100 UNITS/ML 3 ML PEN SC SCH ×3 (07:06→20:30)
[2019-03-16] MEDS: BUDESONIDE 0.5 MG/2 ML VIAL (PULMICORT) NEB SCH ×2 (08:10→19:01)
[2019-03-16] MEDS ORDERED: BUMETANIDE 1 MG in SYRINGE 0 ML IV ONE (08:45)
[2019-03-16] MEDS ORDERED: BUMETANIDE 1 MG in SYRINGE 0 ML IV SCH (08:45)
[2019-03-16] MEDS: PANTOprazole 40 MG in SYRINGE 0 ML IV SCH ×2 (09:01→20:33)
[2019-03-16] MEDS ORDERED: predniSONE 20 MG TAB PO ONE (10:15)
[2019-03-16] MEDS ORDERED: HYDROmorphone INJ 0.5 MG/0.5 ML SYR IV PRN ×2 (10:17→10:18)
[2019-03-16] MEDS ORDERED: SODIUM CHLORIDE 0.9% 250 ML IV PRN (10:27)
--- NOTE | 2019-03-16 10:31 | Surgery Progress Note ---
Date of Service March 16, 2019 Assessment & Plan (1) S/P aortobifemoral bypass surgery: Patient is improving slowly after his aortobifemoral bypass but is doing well. His blood pressure remained stable as is does his urine output. He has excellent distal flow. At this point we will continue to diurese him gently. (2) Acute blood loss as cause of postoperative anemia: We will give him a unit of blood today due to a hemoglobin of 8.5. We lai l give a bolus of Lasix post transfusion. Hopefully we can move him out of the intensive care unit the PCU tomorrow. Subjective Patient is awake and answers questions appropriately. He is complaining of abdominal pain. Denies any flatus. He does have some nauseousness this morning. Physical Exam Constitutional: WD/WN, vitals as above Cardiovascular: He is got good dorsalis pedis and posterior tibial pulses to Doppler. Gastrointestinal (Abdomen): His abdomen is distended but soft with some mild guarding due to the incisional pain. Skin: Incisions are dry and clean. Psychiatric: Orientation: alert and oriented x 3 Genitourinary: He maintains good urine output at this point. His creatinine has leveled and is now 1.72 today which is slightly lower from yesterday. His potassium is normal at 4.5. Results & Data Vital Signs (Past 12 Hours) Vital Signs Temp Pulse Pulse Pulse Resp BP BP 03/16/19 08:38 107 H 18 03/16/19 08:37 108 H 15 124/67 03/16/19 08:11 105 H 18 03/16/19 08:00 110 H 20 03/16/19 07:37 37.2 C 106 H 17 121/62 03/16/19 06:00 108 H 14 108/69 03/16/19 05:00 108 H 13 03/16/19 04:00 37.1 C 109 H 18 111/74 03/16/19 03:33 111 H 18 03/16/19 03:00 112 H 20 110/56 L 03/16/19 02:00 109 H 15 103/64 03/16/19 01:00 115 H 16 124/68 03/16/19 00:00 36.8 C 113 H 19 102/67 03/15/19 23:21 111 H 95 H 17 03/15/19 22:30 112 H 16 Pulse Ox 03/16/19 08:38 93 03/16/19 08:37 92 03/16/19 08:11 90 03/16/19 08:00 89 L 03/16/19 07:37 93 03/16/19 06:00 94 03/16/19 05:00 93 03/16/19 04:00 94 03/16/19 03:33 95 03/16/19 03:00 95 03/16/19 02:00 94 03/16/19 01:00 97 03/16/19 00:00 95 03/15/19 23:21 95 03/15/19 22:30 89 L
--- NOTE | 2019-03-16 10:40 | XRay Report ---
KUB CLINICAL HISTORY: Evaluate ileus. COMPARISON STUDY: CTA of the abdomen and pelvis with runoff January 23, 2019. FINDINGS: Skin vera project over each groin as well as the abdomen. Bladder catheter is in place. Tip of nasogastric tube projects over the gastric cardia. Loop of mildly dilated small bowel within l eft mid abdomen measures 3.9 cm in caliber. There is no significant colonic distention. IMPRESSION: 1. Tip of nasogastric tube projects over the gastric cardia. The tube could be advanced 4 cm. 2. Loop of mildly dilated small bowel within the left mid abdomen. This could reflect a mild ileus. ACT 112: Negative or not required by law. Electronically signed by: Rhett Patton M.D. 03/16/2019 10:39 AM
--- NOTE | 2019-03-16 10:46 | Operative Report ---
Post Operative Report Pre & Post Diagnosis Operation Date: 03/14/19 07:30 Pre-Op Diagnosis: Infrarenal Aortic Occlusion Post-Op Diagnosis: Infrarenal Aortic Occlusion I identified the patient and participated in the time-out.: Yes Procedure Operation Date: 03/14/19 07:30 Actual Procedures p Aortobifemoral Bypass(Bilateral) - Jose Raymond MD Surgeon Jose Raymond MD Capper Machine Operator MD Donald Estimated Blood Loss 1,000 Findings Consistent with Post-Op Diagnosis Specimens None Anesthesia Type General Complications none Disposition Accompanied Patient To Recovery: No Disposition: Surgical ICU Indications This is a 53-year-old gentleman with a long history of claudication. He was found to have infrarenal aortic occlusion which at this point had resulted in severe claudication limiting him to a few steps only. Aortobifemoral bypass was recommended. I have discussed the risks options and benefits of the procedure with the patient. The patient understands the risks options and benefits and agrees to the procedure. Description of Procedure The patient was taken to the operating placed in the supine position. After the abdomen and groins were prepped and draped in a sterile manner the patient was identified and a timeout performed. A longitudinal incision was then made in the midline in the abdomen. This carried out through the midline fascia. Exploration of the abdomen showed no gross pathology. At that point the Bookwalter retractor was set up. The bowel was retracted to the right. The retroperitoneum was opened exposing the aorta. The aorta itself and the occluded area was difficult to dissect out due to apparently some inflammation that was present. The more proximal aorta just below the renals which was patent appeared to be normal in exam. The dissection this area is fairly easy. Renal arteries were identified. It would be easy to place the client well below the renals and above the occlusion. For better exposure the inferior mesenteric vein had to be ligated. Patient was heparinized at that time. After adequate heparinization was accomplished the aorta was clamped below the renals. It was then transected approximately 2 cm below the clamp. There was a small plug present which was easily removed. The proximal aorta was then flushed. No further clot flushed out the proximal aorta. We subsequently ligated the distal aorta which was transected with a CV 3 [place] suture. At this point a 16 x 8 [place] graft was brought to the operative field. It was trimmed the appropriate length of the shaft. An end-to-end anastomosis was accomplished between the infrarenal aortic stump and the aortic graft. This was done with a CV 3 [place] suture. Upon completion the suture line was tested. It was flushed through the limbs. There was a small tear noted at the suture point on the upper part of the suture line. This was controlled with interrupted 3-0 Prolene with pledget. Next bilateral groin incisions were made exposing the common femoral arteries on both sides from the groin inguinal ligament down to beyond the bifurcation. Once this was done the retroperitoneal tunnels were then made coursing along the anterior surface of the iliac arteries. The appropriate limbs of the graft were then passed down to the groins. The right groin was done first. The common, superficial, and profunda femoral arteries were clamped. Longitudinal arteriotomy was started on the common femoral artery extending downward to beyond the origin of the superficial femoral artery. The distal superficial femoral appeared to be patent. The graft was then pulled the appropriate length and beveled. And this anastomosis was accomplished using a CV 6 [place] suture in the usual vascular fashion. There was mild plaque seen in the common femoral artery posteriorly but no significant narrowing was appreciated. The anastomosis was done in usual vascular fashion. Prior to completing the closure backbleeding and fore bleeding was allowed to occur. The final few sutures were then placed and securely tied. Clamps were then removed. Excellent flow was seen distally. There was good Doppler signals both in the superficial femoral and profundofemoral arteries of the right side. Patient tolerated unclamping very nicely with only a slight drop in blood pressure. Adequate stasis was noted of the suture line. We then packed the right groin and addressed the left. The common femoral superficial and profundofemoral arteries were clamped on the left side. Longitudinal arteriotomy was started on the common femoral artery extended downward again through the origin of the superficial femoral artery. There is more plaque on the left side with heaped up amount at the profunda causing a stenosis which was fairly significant on exam. Femoral artery itself was fairly small. We therefore elected to do an endarterectomy the common femoral artery extending down to the superficial femoral artery a short distance. This was on no difficulty. There is a small flap seen distally at the breakoff point. The distal breakoff point was then tacked down with 7-0 Prolene sutures along the lateral posterior and medial chatterjee. The graft was then trimmed the appropriate length and beveled. End-to-side anastomosis was then accomplished in the left femoral artery again using a CV 6 [place] suture in usual vascular fashion. Prior to completing the closure backbleeding for bleeding was allowed to occur. The final few sutures were then placed and securely tied. Clamps were then removed. Some flow was seen on the left side with good Doppler signals in the profunda and superficial femoral arteries distally. And hemostasis was noted of suture line. This groin was also then packed. We then inspected the abdominal suture line. Suture line seemed intact. There was a small amount of bleeding noted inferiorly which appear to be coming from the end of the distal stump. This area was oversewn with a 3-0 Prolene with pledgets. At that point adequate hemostasis was noted of the wound. No protamine was given to reverse the heparin B- hemostasis was seen. We then reapproximated the retroperitoneum with a 3-0 Vicryl suture. This covered the entire graft. The abdominal wall was then closed with a running #1 PDS double-stranded suture. Skin edges were approximated abdominal wall with a stapling device. The abdomen and groins were irrigated with heparinized saline prior to closing the abdomen. The groins were then closed using a running 2-0 Vicryl suture for the femoral sheath a running 3-0 Vicryl for the subcutaneous layer, and vera for the skin. Sterile dressings were applied to the wound.The patient left the operation room in satisfactory condition and tolerated the procedure well. All needle and sponge counts were correct at the end of the procedure. I attest to the content of the Intraoperative Record and any orders documented therein. Any exceptions are noted below.
[2019-03-16] MEDS ORDERED: methylPREDNISolone 40 MG in SYRINGE 0 ML IV SCH (11:00)
[2019-03-16] MEDS ORDERED: FUROSEMIDE 20 MG in SYRINGE 0 ML IV SCH (11:00)
--- NOTE | 2019-03-16 14:09 | Critical Care Progress Note ---
Date of Service March 16, 2019 Assessment & Plan (1) Acute hypoxemic respiratory failure: Patient is tolerating BiPAP at this moment. He is very wheezy and bronchospastic today. We have added IV Solu-Medrol in addition to his inhaled budesonide and DuoNeb's. He is still tenuous from a respiratory standpoint. He is not having any bowel movements and I am concerned that he is developing ileus. We did obtain a KUB today. KUB is suggestive of mild ileus. Continue bowel rest. Continue nasogastric tube to intermittent suction. Will defer adding motility agents to the vascular surgeon. We are stopping the morphine given his renal failure and ileus. Defer blood pressure management to vascular surgery. He is being diuresed as per recommendations by Dr. Raymond. Remain in the ICU today. CRITICAL CARE TIME - I have personally spent 30 minutes of critical care time in the direct management of this patient. This is a life/limb threatening event. This includes time spent evaluating patient, direct bedside care, chart review, placing orders, interpretation of diagnostic studies, discussion with consultants, patient, and family members, as well as other required patient management activities. This time is exclusive of all separately billable procedures, and teaching time and separate from and in addition to any other critical care service time. (2) Acute hypercapnic respiratory failure: (3) Chronic distal aortic occlusion: (4) S/P aortobifemoral bypass surgery: Subjective Patient denies any chest pain. He is having some abdominal pain no bowel movements. Tenderness to palpation of the abdomen. No significant fevers overn ight. He was able to be taken off the BiPAP earlier today but has to be placed back on the BiPAP due to hypoxemia. Physical Exam Neck: normal visual inspection Respiratory: Wheezes and rhonchi present bilaterally. Cardiovascular: RRR, no murmur, no edema Gastrointestinal (Abdomen): normal bowel sounds, soft, nontender, no hepatosplenomegaly Musculoskeletal: no cyanosis or clubbing, extremities motor strength 5/5 Skin: no rashes, warm and dry Neurologic: PERRL, EOMI, accommodation nl, no face palsy, no dysarthria Psychiatric: A+Ox3, euthymic affect Results & Data ([facility]) Vital Signs (Past 12 Hours) Vital Signs Temp Pulse Pulse Resp BP BP Pulse Ox 03/16/19 13:55 99.1 F 103 H 18 135/67 95 03/16/19 12:55 99.1 F 103 H 18 119/62 94 03/16/19 11:55 98.4 F 103 H 16 118/69 95 03/16/19 11:25 98.8 F 106 H 20 114/66 94 03/16/19 11:10 98.6 F 105 H 18 115/68 93 03/16/19 11:01 98.6 F 106 H 116/61 92 03/16/19 10:54 98.6 F 107 H 18 112/62 93 03/16/19 08:38 107 H 18 93 03/16/19 08:37 108 H 15 124/67 92 03/16/19 08:11 105 H 18 90 03/16/19 08:00 110 H 20 89 L 03/16/19 07:37 99.0 F 106 H 17 121/62 93 03/16/19 06:00 108 H 14 108/69 94 03/16/19 05:00 108 H 13 93 03/16/19 04:00 98.8 F 109 H 18 111/74 94 03/16/19 03:33 111 H 18 95 03/16/19 03:00 112 H 20 110/56 L 95 Coding Level of Care Code Critical Care 1st 30-74 mins Diagnoses Acute hypoxemic respiratory failure J96.01 Acute hypercapnic respiratory failure J96.02 Chronic distal aortic occlusion I74.09 S/P aortobifemoral bypass surgery Z95.828 Time Spent (min) 30
[2019-03-17] MEDS: INSULIN ASPART 100 UNITS/ML 3 ML PEN SC SCH ×5 (00:08→23:42)
[2019-03-17 04:50] LABS: Hematocrit (blood only) 27.6 % (42-52); Hemoglobin 9.4 g/dL (14.0-18.0); Immature Granulocytes # (auto) 0.06 K/uL (0.00-0.02); Immature Granulocytes % (auto) 0.4 %; Lymphocytes # (auto) 0.62 K/uL (1.2-3.4); Mean Corpuscular Hemoglobin 31.4 pg (25-34); Mean Corpuscular Hgb Conc 34.1 g/dL (32-36); Mean Corpuscular Volume 92.3 fL (80-100); Mean Platelet Volume 9.7 fL (7.4-10.4); Monocytes % (auto) 14.1 %; Neutrophils # (auto) 12.77 K/uL (1.4-6.5); Neutrophils % (auto) 81.5 %; Platelet Count 165 K/uL (130-400); RDW Coefficient of Variation 15.8 % (11.5-14.5); RDW Standard Deviation 53.5 fL (36.4-46.3); Red Blood Count 2.99 M/uL (4.7-6.1); White Blood Count 15.65 K/uL (4.8-10.8)
[2019-03-17 05:13] LABS: BUN Creatinine Ratio 22.9 (10-20); Calcium 7.5 mg/dl (8.5-10.1); Creatinine Clr Calc Pharmacy 69.8 ml/min; Est GFR (African American) 70.1; Est GFR (Non-African American) 60.5; Magnesium 2.8 mg/dl (1.8-2.4)
[2019-03-17 05:21] LABS: Phosphorus 2.1 mg/dl (2.5-4.9)
[2019-03-17] MEDS ORDERED: POTASSIUM PHOS 3 MMOL/1 ML INFUSION IV STA (05:33)
[2019-03-17] MEDS ORDERED: POTASSIUM PHOSPHATE 15 MMOL in SODIUM CHLORIDE 0.9% 250 ML IV ONE (05:45)
[2019-03-17] MEDS: BUDESONIDE 0.5 MG/2 ML VIAL (PULMICORT) NEB SCH ×2 (07:36→18:54)
[2019-03-17] MEDS: ALBUT/IPRATROP 3MG/0.5MG NEB 3 ML VIAL NEB PRN ×2 (07:36→18:59)
[2019-03-17] MEDS ORDERED: predniSONE 20 MG TAB PO SCH (09:00)
[2019-03-17] MEDS: METOCLOPRAMIDE HCL INJ 5 MG/ML 2 ML VIAL IV SCH ×3 (09:08→20:16)
[2019-03-17] MEDS: D5W AND 1/2NSS 1,000 ML IV SCH ×2 (09:08→20:15)
[2019-03-17] MEDS: ENOXAPARIN INJ 40 MG/0.4 ML SYR SQ SCH ×2 (09:09→20:16)
[2019-03-17] MEDS: PANTOprazole 40 MG in SYRINGE 0 ML IV SCH ×2 (09:11→20:16)
--- NOTE | 2019-03-17 09:11 | Surgery Progress Note ---
Date of Service March 17, 2019 Assessment & Plan (1) S/P aortobifemoral bypass surgery: Patient is improving slowly after his aortobifemoral bypass but is doing well. Hgb better today urine output continues to increase and creatinine is trending back down. Needs to be up more and ambulate (2) Acute blood loss as cause of postoperative anemia: Hgb stable presently. (3) Postoperative ileus: Still with ileus post op but not unexpected and not out of the ordinary for this type or surgery Will d/c ng and add reglan. Transfer out of unit to PCU today Subjective Patient is awake and answers questions appropriately. He is complaining of abdominal pain. Denies any flatus. He is in a chair. Physical Exam Constitutional: WD/WN, vitals as above Cardiovascular: good dopplers in feet Gastrointestinal (Abdomen): Inspection/Auscultation: + abdomen distended; + abnormal bowel sounds Percussion/Palpation: abdomen soft (softer than yesterday) Skin: Incisions clean and dry Psychiatric: Orientation: alert and oriented x 3 Results & Data Vital Signs (Past 12 Hours) Vital Signs Temp Pulse Pulse Resp BP BP Pulse Ox 03/17/19 08:00 37.2 C 99 H 18 172/80 H 91 03/17/19 07:36 97 H 20 93 03/17/19 07:33 101 H 03/17/19 07:00 99 H 23 174/91 H 94 03/17/19 06:30 101 H 21 93 03/17/19 06:00 98 H 21 89 L 03/17/19 05:57 100 H 23 155/88 H 89 L 03/17/19 05:30 106 H 26 H 89 L 03/17/19 05:00 95 H 18 93 03/17/19 04:43 92 H 18 153/88 H 92 03/17/19 04:30 98 H 17 90 03/17/19 04:00 36.8 C 92 H 89 17 94 03/17/19 03:43 94 H 16 150/81 H 94 03/17/19 03:30 86 16 92 03/17/19 03:00 91 H 17 92 03/17/19 02:43 93 H 16 156/88 H 93 03/17/19 02:30 96 H 18 93 03/17/19 02:00 91 H 17 94 03/17/19 01:43 92 H 23 152/78 H 94 03/17/19 01:30 92 H 15 92 03/17/19 01:00 90 15 92 03/17/19 00:43 91 H 15 141/74 H 93 03/17/19 00:30 90 16 93 03/17/19 00:00 37.0 C 94 H 90 15 133/64 93 03/16/19 23:43 92 H 18 136/75 94 03/16/19 23:30 92 H 19 93 03/16/19 23:00 101 H 19 91 03/16/19 22:43 99 H 17 150/81 H 94 03/16/19 22:30 90 18 92 03/16/19 22:06 103 H 03/16/19 22:00 90 17 92 03/16/19 21:43 90 16 137/76 93 03/16/19 21:30 95 H 15 93
--- NOTE | 2019-03-17 09:47 | Critical Care Progress Note ---
Date of Service March 17, 2019 Assessment & Plan (1) Acute hypoxemic respiratory failure: Patient is on oxygen mask today. He will need BiPAP at night. I did start him on Solu-Medrol originally and steroids have been stopped for some reason. I think the patient is in an active COPD exacerbation precipitated by the surgical event that he had. I am not certain why the steroids were stopped. His creatinine is improving. Recommend continued diuresis given the large amount of volume he received during the surgery and postop. His hyperkalemia that he presented with initially has largely improved. Recommend a bowel regimen given his mild ileus. I am going to sign off the case. Thanks. Please call with questions. (2) Acute hypercapnic respiratory failure: (3) Chronic distal aortic occlusion: (4) S/P aortobifemoral bypass surgery: (5) COPD exacerbation: Subjective Patient is sitting up in bed today. The NG tube is now out. He has an oxygen mask in place. He feels better today than he did yesterday. He was able to pass some flatus. He still has not had a bowel movements. Physical Exam Neck: normal visual inspection Respiratory: He has some diffuse rhonchi with intermittent wheezing. Still mildly tachypneic. Cardiovascular: RRR, no murmur, no edema Gastrointestinal (Abdomen): Large incision noted with a bandage. He is still a bit distended and has some tenderness. Bowel sounds are minimal. Musculoskeletal: no cyanosis or clubbing, extremities motor strength 5/5 Skin: no rashes, warm and dry Neurologic: PERRL, EOMI, accommodation nl, no face palsy, no dysarthria Psychiatric: A+Ox3, euthymic affect Results & Data ([facility]) Vital Signs (Past 12 Hours) Vital Signs Temp Pulse Pulse Resp BP BP Pulse Ox 03/17/19 09:00 94 H 21 147/89 H 88 L 03/17/19 08:00 99.0 F 99 H 18 172/80 H 91 03/17/19 07:36 97 H 20 93 03/17/19 07:33 101 H 03/17/19 07:00 99 H 23 174/91 H 94 03/17/19 06:30 101 H 21 93 03/17/19 06:00 98 H 21 89 L 03/17/19 05:57 100 H 23 155/88 H 89 L 03/17/19 05:30 106 H 26 H 89 L 03/17/19 05:00 95 H 18 93 03/17/19 04:43 92 H 18 153/88 H 92 03/17/19 04:30 98 H 17 90 03/17/19 04:00 98.2 F 92 H 89 17 94 03/17/19 03:43 94 H 16 150/81 H 94 03/17/19 03:30 86 16 92 03/17/19 03:00 91 H 17 92 03/17/19 02:43 93 H 16 156/88 H 93 03/17/19 02:30 96 H 18 93 03/17/19 02:00 91 H 17 94 03/17/19 01:43 92 H 23 152/78 H 94 03/17/19 01:30 92 H 15 92 03/17/19 01:00 90 15 92 03/17/19 00:43 91 H 15 141/74 H 93 03/17/19 00:30 90 16 93 03/17/19 00:00 98.6 F 94 H 90 15 133/64 93 03/16/19 23:43 92 H 18 136/75 94 03/16/19 23:30 92 H 19 93 03/16/19 23:00 101 H 19 91 03/16/19 22:43 99 H 17 150/81 H 94 03/16/19 22:30 90 18 92 03/16/19 22:06 103 H 03/16/19 22:00 90 17 92 03/16/19 21:43 90 16 137/76 93 Coding Level of Care Code 84149 Subs Hosp Care Lvl 3 Diagnoses Acute hypoxemic respiratory failure J96.01 Acute hypercapnic respiratory failure J96.02 Chronic distal aortic occlusion I74.09 S/P aortobifemoral bypass surgery Z95.828 COPD exacerbation J44.1
[2019-03-18] MEDS: METOCLOPRAMIDE HCL INJ 5 MG/ML 2 ML VIAL IV SCH ×4 (02:19→21:59)
[2019-03-18 06:03] LABS: Basophils # (auto) 0.01 K/uL (0-0.2); Basophils % (auto) 0.1 %; Eosinophils # (auto) 0.04 K/uL (0-0.5); Eosinophils % (auto) 0.4 %; Hematocrit (blood only) 27.1 % (42-52); Hemoglobin 8.9 g/dL (14.0-18.0); Immature Granulocytes # (auto) 0.04 K/uL (0.00-0.02); Immature Granulocytes % (auto) 0.4 %; Lymphocytes # (auto) 1.05 K/uL (1.2-3.4); Lymphocytes % (auto) 10.6 %; Mean Corpuscular Hemoglobin 30.7 pg (25-34); Mean Corpuscular Hgb Conc 32.8 g/dL (32-36); Mean Corpuscular Volume 93.4 fL (80-100); Mean Platelet Volume 8.9 fL (7.4-10.4); Monocytes # (auto) 1.44 K/uL (0.11-0.59); Monocytes % (auto) 14.5 %; Neutrophils # (auto) 7.36 K/uL (1.4-6.5); Platelet Count 192 K/uL (130-400); RDW Coefficient of Variation 15.4 % (11.5-14.5); RDW Standard Deviation 52.4 fL (36.4-46.3); White Blood Count 9.94 K/uL (4.8-10.8)
[2019-03-18] MEDS: INSULIN ASPART 100 UNITS/ML 3 ML PEN SC SCH ×4 (06:09→21:55)
[2019-03-18 06:40] LABS: Calcium 7.7 mg/dl (8.5-10.1); Creatinine Clr Calc Pharmacy 93.7 ml/min; Est GFR (African American) 99.8; Est GFR (Non-African American) 86.2; Potassium 3.6 mmol/L (3.5-5.1)
[2019-03-18] MEDS: ALBUT/IPRATROP 3MG/0.5MG NEB 3 ML VIAL NEB PRN ×2 (07:12→18:59)
[2019-03-18] MEDS: BUDESONIDE 0.5 MG/2 ML VIAL (PULMICORT) NEB SCH ×2 (07:13→19:00)
[2019-03-18] MEDS: ENOXAPARIN INJ 40 MG/0.4 ML SYR SQ SCH ×2 (08:04→21:55)
[2019-03-18] MEDS: PANTOprazole 40 MG in SYRINGE 0 ML IV SCH ×2 (08:04→21:55)
[2019-03-18] MEDS: D5W AND 1/2NSS 1,000 ML IV SCH (09:15)
--- NOTE | 2019-03-18 09:24 | Surgery Progress Note ---
Date of Service March 18, 2019 Assessment & Plan (1) S/P aortobifemoral bypass surgery: Patient is doing well today. We will start him on clear liquids today. (2) Postoperative ileus: Appears his ileus is improving. He is passing small amounts of flatus. We therefore try him on a clear liquid diet. (3) Acute renal insufficiency: Patient has a small increase in his creatinine postoperatively due to hypotension and hypovolemia. His creatinine is now returned to normal with fluids Subjective Patient feeling better today. He is sitting in a chair at this time. He is passing small amounts of flatus. Physical Exam Constitutional: WD/WN, vitals as above Gastrointestinal (Abdomen): Inspection/Auscultation: + abdomen distended and + hypoactive bowel sounds Percussion/Palpation: abdomen soft (softer than yesterday) Skin: + incision (Dry and clean) Psychiatric: Orientation: alert and oriented x 3 Results & Data Vital Signs (Past 12 Hours) Vital Signs Temp Pulse Pulse Resp BP Pulse Ox 03/18/19 07:45 36.7 C 99 H 20 138/82 94 03/18/19 07:13 105 H 18 92 03/18/19 07:00 99 H 03/18/19 04:12 36.2 C L 95 H 20 128/67 95 03/18/19 03:12 97 H 23 95 03/17/19 23:54 36.5 C 87 18 121/81 96 03/17/19 23:00 94 H 03/17/19 22:13 95 H 18 95
[2019-03-18] MEDS ORDERED: BUMETANIDE 1 MG in SYRINGE 0 ML IV ONE (09:30)
[2019-03-18] MEDS ORDERED: Nursing to Pharmacy Communication ONE (11:15)
[2019-03-19] MEDS: METOCLOPRAMIDE HCL INJ 5 MG/ML 2 ML VIAL IV SCH ×4 (03:07→20:34)
[2019-03-19] MEDS: ALBUT/IPRATROP 3MG/0.5MG NEB 3 ML VIAL NEB PRN ×2 (04:12→07:18)
[2019-03-19] MEDS: BUDESONIDE 0.5 MG/2 ML VIAL (PULMICORT) NEB SCH ×2 (07:18→19:32)
[2019-03-19] MEDS: ENOXAPARIN INJ 40 MG/0.4 ML SYR SQ SCH (07:59)
[2019-03-19] MEDS: PANTOprazole 40 MG in SYRINGE 0 ML IV SCH ×2 (08:00→20:34)
[2019-03-19] MEDS: INSULIN ASPART 100 UNITS/ML 3 ML PEN SC SCH ×4 (08:01→20:31)
--- NOTE | 2019-03-19 09:29 | Surgery Progress Note ---
Date of Service March 19, 2019 Assessment & Plan (1) S/P aortobifemoral bypass surgery: Pt BLE perfusion doing well, pain controlled. Tolerating CLD well, had BM, will advance diet as tolerated. Pt with somewhat labored breathing noted, remains on 4-5L oxygen. Chest XR ordered, iwona. Discussed wtih Dr Raymond, consult hospitalist for SOB and continued increased oxygen requirements. Increase activity today, PT/OT ordered. (2) Postoperative ileus: Appears his ileus is improving, had BM yesterday. Advance diet as tolerated. (3) Acute renal insufficiency: Patient has a small increase in his creatinine postoperatively due to hypotension and hypovolemia. His creatinine is now returned to normal with fluids. Subjective 53 yo m POD # 5 after aortobifemoral bypass graft, seen in f/u today. Pt admits incisional pain with movement, but states is comfortable when still. Admits severe fatigue. Admits SOB and cough. Per RN, continues to require 4-5L oxygen to maintain sats. Taking PO clear liquid diet well. Has ambulated in jimenez once or twice. Had BM yesterday. Labs stable. Review of Systems Review of Systems: All systems reviewed & are unremarkable except as noted in HPI & below Physical Exam Constitutional: WD/WN, vitals as above + uncomfortable Respiratory: + labored breathing Auscultation: + diminished lung sounds, + rales and + rhonchi Cardiovascular: Rate/Rhythm: regular rate and regular rhythm Vessels: femoral pulses present, brachial pulses present and radial pulses present; + abnormal peripheral pulses (+2 BLE distal pulses. ) Extremities: normal capillary refill and + edema Gastrointestinal (Abdomen): Inspection/Auscultation: + abdomen distended and normal bowel sounds Percussion/Palpation: + abdomen tender and abdomen soft Musculoskeletal: Extremities: strength 5/5 throughout Skin: + incision (C/D/I, tender, minimal serous drainage); no erythema Neurologic: moves all extremities and awake; no focal motor deficits and not confused Psychiatric: Orientation: alert and oriented x 3 Affect: euthymic affect Results & Data Vital Signs (Past 12 Hours) Vital Signs Temp Pulse Pulse Resp BP BP Pulse Ox 03/19/19 07:20 88 22 94 03/19/19 07:14 37.2 C 88 20 154/75 H 96 03/19/19 06:00 93 H 03/19/19 04:28 36.9 C 100 H 22 171/77 H 93 03/19/19 04:14 93 H 24 93 03/18/19 23:51 37.1 C 90 20 132/76 132/76 93 03/18/19 23:50 93 H 22 93 03/18/19 22:36 99 H
[2019-03-19] MEDS ORDERED: FUROSEMIDE 40 MG in SYRINGE 0 ML IV ONE ×2 (09:30→16:00)
--- NOTE | 2019-03-19 10:06 | XRay Report ---
XR chest 1V portable CLINICAL HISTORY: SOB COMPARISON STUDY: March 16, 2019 FINDINGS: The cardiac and mediastinal contours remain stable. There are progressive basilar airspace opacities left greater than right suspicious for a pneumonia. An element of mild pulmonary vascular c ongestion cannot be excluded. The nasogastric tube has been removed. There are no significant pleural effusions. There is no pneumothorax.[ IMPRESSION: Worsening bilateral lower lung zone airspace opacities suspicious for pneumonia ACT 112: Negative or not required by law. Electronically signed by: Gerardo Quesada M.D. 03/19/2019 10:05 AM
--- NOTE | 2019-03-19 10:07 | Hospitalist Consultation ---
Date of Consultation March 19, 2019 History of Present Illness Attending Physician: Jose Raymond MD History of Present Illness This is a 53 yo M with PMHx of COPD, acute hypoxemic respiratory failure with hypercapnia, s/s aortobifemoral bypass done on 03/14/19 for occlusion of aorta, and acute renal insufficiency who we were consulted by Dr. Raymond's service for worsening shortness of breath and weakness. The patient was admitted to the ICU from 03/14/19-03/17/19 for acute hypoxemic respiratory failure with hypercapnia where it was thought that he was in an acute COPD exacerbation. He was started on IV solumedrol for treatment along with IV diuresis due to large amount of volume he received during surgery and afterwards considering that he required pressors. He was + 7L on 03/17, and has been diuresed to have a net balance of approximately -0.5 L at this point. A portable Xray was done at bedside and appears to have moderate pulmonary edema by my read. Allergies Allergy/AdvReac Type Severity Reaction Status Date / Time No Known Allergies Allergy Verified 03/14/19 06:29 Home Medications Home Medications Medication Instructions Recorded Confirmed Type albuterol sulfate 1 - 2 inh INHALATION UD PRN 02/15/19 03/14/19 History aspirin [Aspir-81] 81 mg PO DAILY 02/15/19 03/14/19 History bupropion HCl (smoking deter) 150 mg PO BID 02/15/19 03/14/19 History cilostazol 100 mg PO BID 02/15/19 03/14/19 History fluticasone propion-salmeterol 1 puff INHALATION BID 02/15/19 03/14/19 History [Advair Diskus] nystatin 1 appln TOP TID #30 gm 02/28/19 03/14/19 Rx Patient History Medical History (Updated 03/18/19 @ 09:23 by Jose Raymond MD) Acute hypercapnic respiratory failure Acute hypoxemic respiratory failure Asthma Chronic bronchitis COPD exacerbation Pre-diabetes PVD (peripheral vascular disease) Snores POSSIBLY DX WITH SLEEP APNEA "WHEN I WAS A CHILD" - NO DEVICE Surgical History (Updated 03/14/19 @ 16:56 by Kp Day MD) History of plastic surgery FACIAL RECONSTRUCTION/DENIES LIMITED ROM WITH JAW History of surgery on extremity L LEG/HARDWARE S/P aortobifemoral bypass surgery Status post epidural steroid injection HX EPIDURAL STEROID 10 YR AGO Family History Brother Family history of diabetes mellitus Brother Family history of diabetes mellitus Sister Family history of diabetes mellitus Grandmother Family history of diabetes mellitus Mother Family history of cancer Social History Preferred Language: Croatian Communication Ability: Effective Car Wash Attendant Required: No Beliefs That Will Affect Care: Jainism Jainism Beliefs: EPISCOPALIAN Current Living Situation: Spouse Other Information That Helps Us Care for You: No Feels Safe at Home: Yes Safety Concerns: Feels Safe At This Time Smoking Status: Current every day smoker Tobacco Type: cigarettes ; Cigarettes Per Day: .5PPD - 1PPD/ADVISED NPO ; Do You Dip or Chew Tobacco: No ; Second Hand Exposure: No ; Tobacco Cessation Education Requested by Patient: No Hx Alcohol Use: No Hx Substance Use: No Results & Data ([facility]) Vital Signs (Past 12 Hours) Vital Signs Temp Pulse Pulse Resp BP BP Pulse Ox 03/19/19 07:20 88 22 94 03/19/19 07:14 37.2 C 88 20 154/75 H 96 03/19/19 06:00 93 H 03/19/19 04:28 36.9 C 100 H 22 171/77 H 93 03/19/19 04:14 93 H 24 93 03/18/19 23:51 37.1 C 90 20 132/76 132/76 93 03/18/19 23:50 93 H 22 93 03/18/19 22:36 99 H PG Care Time/CCT Total # of Minutes Spent Total Time Spent with Patient: Total time spent is greater than 50% in coordination of care (as documented) at patient's floor/unit and/or counseling patient: Coding
--- NOTE | 2019-03-19 10:10 | Hospitalist Consultation ---
Date of Consultation March 19, 2019 Assessment & Plan (1) Acute hypoxemic respiratory failure: (2) Acute hypercapnic respiratory failure: (3) COPD exacerbation: - Pt was admitted to the ICU from 03/14/19-03/17/19 for acute hypoxemic respiratory failure with hypercapnia where it was thought that he was in an acute COPD exacerbation. He was started on IV solumedrol for treatment but appears that this was stopped and then got a dose of prednisone 40 mg PO on 03/16/19 in the ICU prior to transfer to PCU. He was also being treated with IV diuresis due to large amount of volume he received during surgery and afterwards considering that he required pressors. He was + 7L on 03/17, and has been diuresed to have a net balance of approximately -0.5 L at this point. - A portable Xray was done at bedside - formal read shows possible pneumonia developing - WBC 9.94 from 03/18, recheck today, afebrile - check BCx x 2 - Start on Vancomycin and zosyn with intubation and ICU admission for prophylaxis with cxr read. - Will order additional Lasix 40 mg IV to be administered this afternoon, alread y received 40 mg IV at 0930 - Will also start duonebs and fluid restrict the patient, change diet from clears to full liquid diet. Monitor with abdominal distension, possible that worsening SOB has caused some of the increased distension. KUB if worsening. - Glucose has been mildly elevated from 100s-130s while on DM II clear liquid diet, check A1C with am labs for completeness (4) S/P aortobifemoral bypass surgery: - Dr. Raymnod is primary team, appreciate the consultation - Bilateral LE edema likely secondary to fluid, continue IV lasix as above. - Hgb is 8.9 as of 03/18, recheck today (5) Postoperative ileus: - NGT out, advance diet to full liquids to reduce the amount of fluid consumption with edema. - Consider KUB if worsening or changes DVT ppx: Switch from lovenox to heparin with aggressive diuresis with hx of MOON CODE: FULL Dispo: From home, CM to assist with d/c, PT/OT on board, possible rehab vs. home. Supervising Physician Co-Signing Physician Notes Pt seen and examined by me. Pt states he is feeling much improved "after whatever they did". He has no SOB at all. Pt states that this is the first that he has been able to sit up comfortably due to his breathing. "I couldn't even look at my phone because I was so SOB." Nursing is present and states that the oxymask was around his chin when she came in the room but O2 sats were 92%. Denies chest pain. Tolerating PO without issue. Agree with HPI/ROS as noted by PA. See above for my exam in PE section Agree with plan as outlined above Pt much improved s/p lasix, nebs, abx CXR from prior noted for atelectasis vs PNA x2, repeat today with definite PNA Started on vanco/zosyn Blood cx pending BS elevated, A1c pending Monitor CBC Changed from lovenox to heparin given recent cr History of Present Illness Attending Physician: Jose Raymond MD History of Present Illness This is a 53 yo M with PMHx of chronic bronchitis with an asthmatic component, acute hypoxemic respiratory failure with hypercapnia, s/s aortobifemoral bypass done on 03/14/19 for occlusion of aorta, and acute renal insufficiency now improved, who we were consulted by Dr. Raymond's service for worsening shortness of breath and weakness. The patient reports that he stopped smoking about 20 days ago, where he was using 1.5 ppd x 20+ years. 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 He follows with Dr. Sidhu as an outpatient, as he was referred by his PCP with hx of tobacco use. Formal PFTs were done in [facility] er. He reports that he uses Advair and albuterol rescue inhaler VIRTUAL RECRUITER. He has not required any supplemental O2 use VIRTUAL RECRUITER, and was able to perform ADLs without any difficulty. He was unable to walk this morning to the bathroom without becoming extremely winded. He reports feeling some abdominal distension without pain, no n/v, and had a large BM yesterday. NGT is no longer in place and he has been allowed clear liquids since then. Allergies Allergy/AdvReac Type Severity Reaction Status Date / Time No Known Allergies Allergy Verified 03/14/19 06:29 Home Medications Home Medications Medication Instructions Recorded Confirmed Type albuterol sulfate 1 - 2 inh INHALATION UD PRN 02/15/19 03/14/19 History aspirin [Aspir-81] 81 mg PO DAILY 02/15/19 03/14/19 History bupropion HCl (smoking deter) 150 mg PO BID 02/15/19 03/14/19 History cilostazol 100 mg PO BID 02/15/19 03/14/19 History fluticasone propion-salmeterol 1 puff INHALATION BID 02/15/19 03/14/19 History [Advair Diskus] nystatin 1 appln TOP TID #30 gm 02/28/19 03/14/19 Rx Patient History Medical History (Updated 03/18/19 @ 09:23 by Jose Raymond MD) Acute hypercapnic respiratory failure Acute hypoxemic respiratory failure Asthma Chronic bronchitis COPD exacerbation Pre-diabetes PVD (peripheral vascular disease) Snores POSSIBLY DX WITH SLEEP APNEA "WHEN I WAS A CHILD" - NO DEVICE Surgical History (Updated 03/14/19 @ 16:56 by Kp Day MD) History of plastic surgery FACIAL RECONSTRUCTION/DENIES LIMITED ROM WITH JAW History of surgery on extremity L LEG/HARDWARE S/P aortobifemoral bypass surgery Status post epidural steroid injection HX EPIDURAL STEROID 10 YR AGO Family History Brother Family history of diabetes mellitus Brother Family history of diabetes mellitus Sister Family history of diabetes mellitus Grandmother Family history of diabetes mellitus Mother Family history of cancer Social History Preferred Language: Montserratian Communication Ability: Effective Container Finisher Required: No Beliefs That Will Affect Care: Confucianism Confucianism Beliefs: LUTHERAN Current Living Situation: Spouse Other Information That Helps Us Care for You: No Feels Safe at Home: Yes Safety Concerns: Feels Safe At This Time Smoking Status: Current every day smoker Tobacco Type: cigarettes ; Cigarettes Per Day: .5PPD - 1PPD/ADVISED NPO ; Do You Dip or Chew Tobacco: No ; Second Hand Exposure: No ; Tobacco Cessation Education Requested by Patient: No Hx Alcohol Use: No Hx Substance Use: No Review of Systems Review of Systems: Constitutional: No fever, sweats or chills Eyes: No diplopia, no worsening or blurred vision ENT: normal hearing, no trouble swallowing Respiratory:+ wet cough, no sputum, + dyspnea at rest and with minimal ADLs, unable to walk without becoming significantly SOB Cardiovascular: No chest pain, tightness or palpitations Abdomen: No pain, + bloated, no nausea, vomiting, diarrhea or constipation, last BM yesterday Musculoskeletal: No joint pain, calf pain, + bilateral lower leg swelling, + hx of traumatic injury with skateboarding as child involving the left miranda, s/p orthopedic surg with plates and screws in place. Neurologic: + generalized weakness, no numbness/tingling, or balance problems Psychiatric: No anxiety or depression Skin: No rash or itch Physical Exam Physical Exam: General: awake, alert, no apparent distress, + mild work to breath with oximask on 4-5L Head: Normocephalic, atraumatic ENT: PERRL, EOMI, no pharyngeal exudate, mucous membranes moist Chest: + Diffuse crackles, + oximask on at 4-5 L, on room air, no adventitious breath sounds Cardiac: Regular rate and rhythm, no murmur, no JVD, normal peripheral pulses, good capillary refill Abdominal: NABS x 4 quadrants, + distended, + hard, + tympanic to percussion in epigastric region, nontender to palpation, no rebound, guarding or tenderness Extremities: Normal inspection, 1+ peripheral edema BLE, no erythema, calfs nontender to palpation Psych: Normal mood and affect Neuro: AAO x 3, strength intact bilaterally and related 5/5, no motor deficits, speech is clear, no peripheral sensory deficits Constitutional: WD/WN, vitals as above Eyes: normal visual woodson by confrontation and + anicteric sclerae Neck: normal visual inspection and trachea midline Respiratory: normal respiratory effort; no respiratory distress Auscultation: + diminished lung sounds and + crackles; no wheezes Cardiovascular: Rate/Rhythm: regular rate and regular rhythm Gastrointestinal (Abdomen): Inspection/Auscultation: abdomen not distended Percussion/Palpation: abdomen soft; abdomen nontender Musculoskeletal: Head/Neck/Chest: normocephalic and head atraumatic Neg for peripheral LE edema, + pedal pulses Skin: no rashes, warm and dry Neurologic: awake; not confused Speech / Cognition: normal speech Psychiatric: A+Ox3, euthymic affect Lymphatic: Exam as done by Kelsey Rojas DO Results & Data ([facility]) Vital Signs (Past 12 Hours) Vital Signs Temp Pulse Pulse Resp BP BP Pulse Ox 03/19/19 07:20 88 22 94 03/19/19 07:14 37.2 C 88 20 154/75 H 96 03/19/19 06:00 93 H 03/19/19 04:28 36.9 C 100 H 22 171/77 H 93 03/19/19 04:14 93 H 24 93 03/18/19 23:51 37.1 C 90 20 132/76 132/76 93 03/18/19 23:50 93 H 22 93 03/18/19 22:36 99 H Diagnostic Findings XR chest 1V portable CLINICAL HISTORY: SOB COMPARISON STUDY: March 16, 2019 FINDINGS: The cardiac and mediastinal contours remain stable. There are progressive basilar airspace opacities left greater than right suspicious for a pneumonia. An element of mild pulmonary vascular congestion cannot be excluded. The nasogastric tube has been removed. There are no significant pleural effusions. There is no pneumothorax.[ IMPRESSION: Worsening bilateral lower lung zone airspace opacities suspicious for pneumonia ACT 112: Negative or not required by law. Electronically signed by: Gerardo Quesada M.D. 03/19/2019 10:05 AM PG Care Time/CCT Total # of Minutes Spent Total Time Spent with Patient: Total time spent is greater than 50% in coordination of care (as documented) at patient's floor/unit and/or counseling patient: Coding Level of Care Code 09516 Inpt Consult Level 4 Diagnoses Acute hypoxemic respiratory failure J96.01 Acute hypercapnic respiratory failure J96.02 COPD exacerbation J44.1 S/P aortobifemoral bypass surgery Z95.828 Postoperative ileus K91.89; K56.7
[2019-03-19] MEDS ORDERED: VANCOMYCIN CONSULT ACTIVE PRN (11:09)
[2019-03-19] MEDS ORDERED: PIPERACILL/TAZOBAC CONSULT ACTIVE PRN (11:09)
[2019-03-19] MEDS: ALBUT/IPRATROP 3MG/0.5MG NEB 3 ML VIAL NEB SCH ×4 (11:16→23:00)
[2019-03-19 11:42] LABS: Basophils # (auto) 0.01 K/uL (0-0.2); Basophils % (auto) 0.1 %; Eosinophils # (auto) 0.06 K/uL (0-0.5); Eosinophils % (auto) 0.6 %; Hematocrit (blood only) 26.4 % (42-52); Hemoglobin 8.9 g/dL (14.0-18.0); Immature Granulocytes # (auto) 0.24 K/uL (0.00-0.02); Immature Granulocytes % (auto) 2.2 %; Lymphocytes # (auto) 1.22 K/uL (1.2-3.4); Lymphocytes % (auto) 11.4 %; Mean Corpuscular Hemoglobin 31.3 pg (25-34); Mean Platelet Volume 9.1 fL (7.4-10.4); Monocytes # (auto) 1.35 K/uL (0.11-0.59); Monocytes % (auto) 12.6 %; Neutrophils % (auto) 73.1 %; Nucleated RBC # (auto) 0.02 K/uL (0-0); Nucleated RBC % (auto) 0.2 %; Platelet Count 216 K/uL (130-400); RDW Coefficient of Variation 14.5 % (11.5-14.5); RDW Standard Deviation 49.8 fL (36.4-46.3); Red Blood Count 2.84 M/uL (4.7-6.1); White Blood Count 10.68 K/uL (4.8-10.8)
[2019-03-19 11:46] LABS: Mean Corpuscular Hgb Conc 33.7 g/dL (32-36)
[2019-03-19 11:58] LABS: BUN Creatinine Ratio 26.3 (10-20); Calcium 8.3 mg/dl (8.5-10.1); Creatinine Clr Calc Pharmacy 98.6 ml/min; Est GFR (Non-African American) 94.1; Potassium 3.3 mmol/L (3.5-5.1)
[2019-03-19] MEDS ORDERED: PIPERACILLIN/TAZOBACTAM 4.5 GM in DEXTROSE 5% 100 ML IV ONE (12:00)
[2019-03-19] MEDS ORDERED: POTASSIUM CHLORIDE 20 MEQ TABCR PO STA (12:09)
[2019-03-19] MEDS ORDERED: VANCOMYCIN HCL 2,250 MG in SODIUM CHLORIDE 0.9% 500 ML IV ONE (12:30)
[2019-03-19] MEDS: HEPARIN SOD 5,000 UNIT/0.5 ML VIAL SQ SCH ×2 (13:10→20:34)
--- NOTE | 2019-03-19 15:20 | Pharmacy Report ---
Pharmacy Abx Initial Consult - Date of Service March 19, 2019 - Pharmacy Dosing Scope Date of Consult: 03/19/2019 Consultation requested by: Dr. Rojas Pharmacy is consulted to initiate vancomycin and Zosyn IV dosing therapy, order appropriate labs and adjust drug dose/frequency. - Subjective The patient is a 53 year old M admitted on 03/14/19 15:33. - Objective Height: 5 ft 7 in Weight: 88.5 kg Vital Signs (Past 12hrs): Vital Signs Temp Pulse Pulse Resp BP Pulse Ox 03/19/19 11:17 86 20 94 03/19/19 11:13 37.0 C 86 18 145/79 H 93 03/19/19 07:20 88 22 94 03/19/19 07:14 37.2 C 88 20 154/75 H 96 03/19/19 06:00 93 H 03/19/19 04:28 36.9 C 100 H 22 171/77 H 93 03/19/19 04:14 93 H 24 93 Lab Results (24hrs): Laboratory Tests (24 Hours) 03/19/19 03/19/19 11:23 11:23 WBC 10.68 Neut # (Auto) 7.80 H Creatinine 0.93 Est Cr Clr Drug Dosing 98.6 Micro Results: 03/19/19 11:27 Aerobic Blood Culture - Pending Blood Anaerobic Blood Culture - Pending 03/19/19 11:23 Aerobic Blood Culture - Pending Blood Anaerobic Blood Culture - Pending - Risk Factors for Resistance * Current hospitalization > 5 days - Assessment & Plan Assessment 53 year old M admitted on 03/13 for occlusion of aorta. Patient was admitted to the ICU on 03/14 s/p aortobifemoral bypass, for acute hypoxemic respiratory failure. Patient was found to have a COPD exacerbation and was discharged from the ICU on 03/17. Antibiotics were initiated today for worsening CXR, suggestive of pneumonia Plan Vancomycin and Zosyn for treatment of HAP Vancomycin IV * Estimated PK Parameters: Vd 0.7 L/kg, Darrell 0.086 hr-1, t1/2 8 hr * Loading dose: 2250 mg (25 mg/kg) * Patient meets criteria for vancomycin AUC dosing nomogram AUC/ANTHONY is the preferred PK/PD target for vancomycin Target AUC/ANTHONY = 400-600 AUC guided dosing is effective and associated with decreased risk of nephrotoxicity Trough levels poorly correlate with AUC/ANTHONY and trough monitoring has been associated with increased risk of nephrotoxicity * Maintenance dose: 1250 mg IV (14 mg/kg) every 8 hours * Trough level ordered for 03/20/19 prior to the 4th dose Piperacillin/tazobactam * 4.5 g bolus administered over 30 minutes, then 3.375 g IV extended infusion every 8 hours for CrCl greater than 20 mL/min Pharmacy will continue to follow and will adjust dose/frequency as necessary. Thank you.
[2019-03-19] MEDS: PIPERACILLIN/TAZOBACTAM 3.375 GM in DEXTROSE 5% 100 ML IV SCH (18:27)
[2019-03-19] MEDS: OXYCODONE/ACETAMINOPHEN 5mg/325mg TAB PO PRN (18:27)
[2019-03-19] MEDS: VANCOMYCIN HCL 1,250 MG in SODIUM CHLORIDE 0.9% 250 ML IV SCH (20:33)
[2019-03-20] MEDS: PIPERACILLIN/TAZOBACTAM 3.375 GM in DEXTROSE 5% 100 ML IV SCH ×3 (01:05→17:36)
[2019-03-20] MEDS: ALBUT/IPRATROP 3MG/0.5MG NEB 3 ML VIAL NEB SCH ×6 (02:21→22:55)
[2019-03-20] MEDS: METOCLOPRAMIDE HCL INJ 5 MG/ML 2 ML VIAL IV SCH ×4 (02:52→22:21)
[2019-03-20] MEDS: VANCOMYCIN HCL 1,250 MG in SODIUM CHLORIDE 0.9% 250 ML IV SCH (05:21)
[2019-03-20] MEDS: HEPARIN SOD 5,000 UNIT/0.5 ML VIAL SQ SCH ×3 (05:22→21:19)
[2019-03-20] MEDS: BUDESONIDE 0.5 MG/2 ML VIAL (PULMICORT) NEB SCH ×2 (07:11→19:19)
[2019-03-20] MEDS: OXYCODONE/ACETAMINOPHEN 5mg/325mg TAB PO PRN ×3 (07:15→21:17)
[2019-03-20 07:24] LABS: Basophils # (auto) 0.02 K/uL (0-0.2); Basophils % (auto) 0.2 %; Eosinophils # (auto) 0.24 K/uL (0-0.5); Eosinophils % (auto) 2.6 %; Hematocrit (blood only) 26.8 % (42-52); Hemoglobin 8.8 g/dL (14.0-18.0); Immature Granulocytes # (auto) 0.26 K/uL (0.00-0.02); Immature Granulocytes % (auto) 2.8 %; Lymphocytes % (auto) 11.9 %; Mean Corpuscular Hgb Conc 32.8 g/dL (32-36); Mean Corpuscular Volume 94.4 fL (80-100); Mean Platelet Volume 9.3 fL (7.4-10.4); Monocytes # (auto) 1.24 K/uL (0.11-0.59); Monocytes % (auto) 13.4 %; Neutrophils # (auto) 6.42 K/uL (1.4-6.5); Neutrophils % (auto) 69.1 %; Platelet Count 218 K/uL (130-400); RDW Coefficient of Variation 14.6 % (11.5-14.5); RDW Standard Deviation 50.3 fL (36.4-46.3); Red Blood Count 2.84 M/uL (4.7-6.1); White Blood Count 9.28 K/uL (4.8-10.8)
[2019-03-20 08:04] LABS: BUN Creatinine Ratio 24.2 (10-20); Calcium 8.4 mg/dl (8.5-10.1); Creatinine Clr Calc Pharmacy 94.3 ml/min; Est GFR (African American) 103.6; Est GFR (Non-African American) 89.4; Potassium 3.6 mmol/L (3.5-5.1)
[2019-03-20] MEDS: INSULIN ASPART 100 UNITS/ML 3 ML PEN SC SCH ×4 (08:21→21:20)
[2019-03-20] MEDS: PANTOprazole 40 MG in SYRINGE 0 ML IV SCH (08:31)
[2019-03-20 08:48] LABS: Estimated Average Glucose 123 mg/dl; Hemoglobin A1C 5.9 % (4.5-5.6)
--- NOTE | 2019-03-20 10:08 | Surgery Progress Note ---
Date of Service March 20, 2019 Assessment & Plan (1) S/P aortobifemoral bypass surgery: Pt BLE perfusion doing well, pain controlled. Pt appears significantly improved, breathing much easier since diuresis. Pt more talkative and comfortable, however, still requiring 3L O2. Pt labs stable. Continue PT/OT and increase activity. (2) Postoperative ileus: Appears his ileus is improving, had BM post op. Advance diet as tolerated. Add regular stool softener. (3) Acute renal insufficiency: Patient has a small increase in his creatinine postoperatively due to hypotension and hypovolemia. His creatinine is now returned to normal with fluids. May continue gentle diuresis d/t post op third spacing. Subjective 53 yo m POD #6 after aortobifemoral bypass graft, seen in f/u today. Pt states feeling significantly improved since diuresis yesterday and starting abx. States not feeling SOB today and feels the swelling in his abd is improved as well. Denies any other new complaints. Review of Systems Review of Systems: All systems reviewed & are unremarkable except as noted in HPI & below Physical Exam Constitutional: WD/WN, vitals as above comfortable Respiratory: no labored breathing Auscultation: + diminished lung sounds and + rhonchi Cardiovascular: Rate/Rhythm: regular rate and regular rhythm Vessels: femoral pulses present, brachial pulses present and radial pulses present; + abnormal peripheral pulses (+2 BLE distal pulses. ) Extremities: normal capillary refill and + edema Gastrointestinal (Abdomen): Inspection/Auscultation: + abdomen distended (less than yesterday. Incision C/D/I) and normal bowel sounds Percussion/Palpation: + abdomen tender and abdomen soft Musculoskeletal: Extremities: strength 5/5 throughout Skin: + incision (C/D/I, tender, minimal serous drainage); no erythema Neurologic: moves all extremities and awake; no focal motor deficits and not confused Psychiatric: Orientation: alert and oriented x 3 Affect: euthymic affect Results & Data Vital Signs (Past 12 Hours) Vital Signs Temp Pulse Pulse Resp BP BP Pulse Ox 03/20/19 07:40 36.6 C 76 16 125/78 90 03/20/19 07:14 73 20 90 03/20/19 04:36 36.4 C L 72 20 148/87 H 100 03/20/19 02:23 76 22 97 03/20/19 02:22 76 22 97 02/10/20 23:59 81 03/19/19 23:43 36.5 C 72 18 132/77 100 03/19/19 23:01 77 18 97 03/19/19 23:00 77 17 96
[2019-03-20] MEDS: DOCUSATE SODIUM 100 MG CAP PO SCH ×2 (10:43→21:18)
[2019-03-20] MEDS ORDERED: POTASSIUM CHLORIDE 20 MEQ TABCR PO STA (11:08)
[2019-03-20] MEDS ORDERED: FUROSEMIDE 20 MG in SYRINGE 0 ML IV ONE (11:30)
--- NOTE | 2019-03-20 13:07 | Hospitalist Progress Note ---
Date of Service March 20, 2019 Assessment & Plan (1) Acute hypoxemic respiratory failure: (2) Acute hypercapnic respiratory failure: (3) COPD exacerbation: * Pt was admitted to the ICU from 03/14/19-03/17/19 for acute hypoxemic respiratory failure with hypercapnia where it was thought that he was in an acute COPD exacerbation. He was started on IV solumedrol for treatment but appears that this was stopped and then got a dose of prednisone 40 mg PO on 03/16/19 in the ICU prior to transfer to PCU. He was also being treated with IV diuresis due to large amount of volume he received during surgery and afterwards considering that he required pressors. He was + 7L on 03/17, and has been diuresed to have a net balance of approximately -0.5 L by 03/19 * A portable Xray was done at bedside on 03/19 - formal read shows possible pneumonia developing. * Patient requiring BiPAP overnight, 5L NC this morning then switched to 3L via Oxymask. * WBC 9.94 from 03/18, recheck today, afebrile. WBC 9.2k. * Blood cultures pending * Initiated on Vanco/Zosyn given recent intubation/ICU admission --> MRSA swab negative. Vanc discontinued on 03/19 * DuoNebs -- wheezing on exam likely secondary to pulmonary edema * Fluid restriction * Had received Lasix 40mg IV x 2 on 03/19 -- additional 20mg IV ordered morning of 03/20 -- will order additional 20mg IV this evening -- currently patient 96% on 3L via Oxymask. 83kg prior to procedure, with max of 92.6kg on 03/18 -- current weight 88kg * ------> net negative 1.5L in last 24 hours. Per Cumulative I&O report, patient continues to be up ~2L (4) S/P aortobifemoral bypass surgery: * Dr. Raymond is primary team, appreciate the consultation * Bilateral LE edema likely secondary to fluid, continue IV lasix as above. * Hgb is 8.9 as of 03/18, recheck also 8.9 (5) Postoperative ileus: * NGT out, advance diet to full liquids to reduce the amount of fluid consumption with edema. * Consider KUB if worsening or changes , however patient with decreased pain/fullness (6) Pre-diabetes: * BSGs mildly elevated -- A1c obtained -- 5.9 * --> counseled patient on diagnosis of pre-diabetes and complications associated with microvascular changes -- diet/exercise, will need outpatient follow up and repeat in 3 months. * No initiation of anti-hyperglycemic agents currently, although patient may benefit from statin agent for primary prevention. * Lipid panel in AM -- patient may benefit from statin given vascular disease and pre-DM dx (7) DVT prophylaxis: * Switch from lovenox to heparin with aggressive diuresis with hx of MOON Dispo: From home, CM to assist with d/c, PT/OT on board Thank you for allowing hospitalist service to participate in the care of Mr. Beard. Medicine to follow along. Admission and Anticipated Discharge Date Admission Date: March 14, 2019 Supervising Physician Co-Signing Physician Notes Attending Attestation - Chart reviewed in detail, care plan d/w SYLVESTER [place]. I agree w/ the velasquez components of her documentation. Patient with acute hypoxic/hypercarbic resp failure in setting of recent vascular surgery. Appears that volume overload is main culprit for ongoing O2 requirement. Cont IV diuretics. Medicine to follow. Efren Mcmahon MD Subjective Patient evaluated at bedside. Patient resting comfortably, however oxymask was not in correct place when I entered the room. This needed to be fixed twice during our conversation. The patient states he is feeling much better today. Denies any shortness of breath, despite requiring oxygen. States he is having much less abdominal fullness/discomfort. States he did have a bowel movement two days ago. Denies any constipation currently. Denies any fever or chills, chest pain, n/v or visual changes. Discussed continuing diuresis and addition of steroids to assist with breathing, as well as continuing antibiotics for likely pneumonia process. Discussed negative MRSA swab and discontinuing vancomycin. Patient having minimal incisional discomfort, which he states is tolerable. Plans for possible rehab at discharge. Review of Systems Review of Systems: All systems reviewed & are unremarkable except as noted in HPI & below Constitutional: no fever and no chills Eyes: no diplopia Ear, Nose, Mouth, Throat: no dysphagia Respiratory: no cough and no dyspnea Cardiovascular: no chest pain and no palpitations Gastrointestinal: no abdominal pain, no nausea and no vomiting Genitourinary: no dysuria and no urinary frequency Integumentary: no rash and no lesions Physical Exam Constitutional: WD/WN, vitals as above comfortable; no acute distress Eyes: + anicteric sclerae and PERRL ENMT: external ear and nose normal, oropharynx normal Neck: trachea midline, no thyromegaly Respiratory: normal respiratory effort; no labored breathing Auscultation: + diminished lung sounds, + crackles (fine crackles diffusely) and + wheezes (diffusely, posterior lung woodson > anterior woodson) on 3L oxymask Cardiovascular: Rate/Rhythm: regular rate and regular rhythm Heart Sounds: no murmur Extremities: + edema (1+ BLE) Gastrointestinal (Abdomen): normal bowel sounds, soft, nontender, no hepatosplenomegaly Skin: no rashes, warm and dry bilateral surgical incisions with vera- without evidence of erythema/drainage or streaking B/l LE slightly cool to touch -- pulses 2+ dp, pt bilaterally Neurologic: PERRL, EOMI, accommodation nl, no face palsy, no dysarthria Psychiatric: A+Ox3, euthymic affect Lymphatic: no cervical or axillary lymphadenopathy Results & Data ([facility]) Vital Signs (Past 12 Hours) Vital Signs Temp Pulse Pulse Resp BP Pulse Ox 03/20/19 12:00 37.0 C 75 20 132/69 96 03/20/19 11:17 36.8 C 68 13 123/77 96 03/20/19 11:12 68 18 96 03/20/19 07:40 36.6 C 76 16 125/78 90 03/20/19 07:14 73 20 90 03/20/19 04:36 36.4 C L 72 20 148/87 H 100 03/20/19 02:23 76 22 97 03/20/19 02:22 76 22 97 Laboratory Results 03/20/19 03/20/19 03/20/19 Range/Units 11:31 07:32 06:53 WBC (4.8-10.8) K/uL RBC (4.7-6.1) M/uL Hgb (14.0-18.0) g/dL Hct (42-52) % MCV (80-100) fL MCH (25-34) pg MCHC (32-36) g/dL RDW Std Deviation (36.4-46.3) fL RDW Coeff of Raven (11.5-14.5) % Plt Count (130-400) K/uL MPV (7.4-10.4) fL Immature Gran % (Auto) % Neut % (Auto) % Lymph % (Auto) % [place] % (Auto) % Eos % (Auto) % Baso % (Auto) % Immature Gran # (Auto) (0.00-0.02) K/uL Neut # (Auto) (1.4-6.5) K/uL Lymph # (Auto) (1.2-3.4) K/uL [place] # (Auto) (0.11-0.59) K/uL Eos # (Auto) (0-0.5) K/uL Baso # (Auto) (0-0.2) K/uL Sodium 141 (136-145) mmol/L Potassium 3.6 (3.5-5.1) mmol/L Chloride 104 (98-107) mmol/L Carbon Dioxide 33 H (21-32) mmol/L Anion Gap 4.0 (3-11) BUN 23 H (7-18) mg/dl Creatinine 0.97 (0.6-1.4) mg/dl Est Cr Clr Drug Dosing 94.3 ml/min Est GFR ( Amer) 103.6 Est GFR (Non-Af Amer) 89.4 BUN/Creatinine Ratio 24.2 H (10-20) Glucose 98 (70-99) mg/dl POC Glucose 121 H 107 H (70-99) mg/dl Estimat Average Glucose mg/dl Hemoglobin A1c (4.5-5.6) % Calcium 8.4 L (8.5-10.1) mg/dl Nasal Screen MRSA (PCR) (Negative) 03/20/19 03/20/19 03/19/19 Range/Units 06:53 06:53 20:12 WBC 9.28 (4.8-10.8) K/uL RBC 2.84 L (4.7-6.1) M/uL Hgb 8.8 L (14.0-18.0) g/dL Hct 26.8 L (42-52) % MCV 94.4 (80-100) fL MCH 31.0 (25-34) pg MCHC 32.8 (32-36) g/dL RDW Std Deviation 50.3 H (36.4-46.3) fL RDW Coeff of [place] 14.6 H (11.5-14.5) % Plt Count 218 (130-400) K/uL MPV 9.3 (7.4-10.4) fL Immature Gran % (Auto) 2.8 % Neut % (Auto) 69.1 % Lymph % (Auto) 11.9 % [place] % (Auto) 13.4 % Eos % (Auto) 2.6 % Baso % (Auto) 0.2 % Immature Gran # (Auto) 0.26 H (0.00-0.02) K/uL Neut # (Auto) 6.42 (1.4-6.5) K/uL Lymph # (Auto) 1.10 L (1.2-3.4) K/uL [place] # (Auto) 1.24 H (0.11-0.59) K/uL Eos # (Auto) 0.24 (0-0.5) K/uL Baso # (Auto) 0.02 (0-0.2) K/uL Sodium (136-145) mmol/L Potassium (3.5-5.1) mmol/L Chloride (98-107) mmol/L Carbon Dioxide (21-32) mmol/L Anion Gap (3-11) BUN (7-18) mg/dl Creatinine (0.6-1.4) mg/dl Est Cr Clr Drug Dosing ml/min Est GFR ( Amer) Est GFR (Non-Af Amer) BUN/Creatinine Ratio (10-20) Glucose (70-99) mg/dl POC Glucose 113 H (70-99) mg/dl Estimat Average Glucose 123 mg/dl Hemoglobin A1c 5.9 H (4.5-5.6) % Calcium (8.5-10.1) mg/dl Nasal Screen MRSA (PCR) (Negative) 03/19/19 03/19/19 Range/Units 19:25 16:12 WBC (4.8-10.8) K/uL RBC (4.7-6.1) M/uL Hgb (14.0-18.0) g/dL Hct (42-52) % MCV (80-100) fL MCH (25-34) pg MCHC (32-36) g/dL RDW Std Deviation (36.4-46.3) fL RDW Coeff of [place] (11.5-14.5) % Plt Count (130-400) K/uL MPV (7.4-10.4) fL Immature Gran % (Auto) % Neut % (Auto) % Lymph % (Auto) % [place] % (Auto) % Eos % (Auto) % Baso % (Auto) % Immature Gran # (Auto) (0.00-0.02) K/uL Neut # (Auto) (1.4-6.5) K/uL Lymph # (Auto) (1.2-3.4) K/uL [place] # (Auto) (0.11-0.59) K/uL Eos # (Auto) (0-0.5) K/uL Baso # (Auto) (0-0.2) K/uL Sodium (136-145) mmol/L Potassium (3.5-5.1) mmol/L Chloride (98-107) mmol/L Carbon Dioxide (21-32) mmol/L Anion Gap (3-11) BUN (7-18) mg/dl Creatinine (0.6-1.4) mg/dl Est Cr Clr Drug Dosing ml/min Est GFR ( Amer) Est GFR (Non-Af Amer) BUN/Creatinine Ratio (10-20) Glucose (70-99) mg/dl POC Glucose 114 H (70-99) mg/dl Estimat Average Glucose mg/dl Hemoglobin A1c (4.5-5.6) % Calcium (8.5-10.1) mg/dl Nasal Screen MRSA (PCR) Negative (Negative) PG Care Time/CCT Total # of Minutes Spent Total Time Spent with Patient: Total time spent is greater than 50% in coordination of care (as documented) at patient's floor/unit and/or counseling patient: Coding Level of Care Code 61862 Subseq Hosp Care Lvl 3 Diagnoses Acute hypoxemic respiratory failure J96.01 Acute hypercapnic respiratory failure J96.02 COPD exacerbation J44.1 S/P aortobifemoral bypass surgery Z95.828 Postoperative ileus K91.89; K56.7 Pre-diabetes R73.03 DVT prophylaxis Z29.9
--- NOTE | 2019-03-20 13:23 | Internal Medicine Consult Note ---
Date of Consultation March 20, 2019 Assessment & Plan (1) Encounter for rehabilitation evaluation: Complex medical and surgical issues including COPD/Hypoxemia/ASCAD and PVD with now new revascularization procedure of the LEs. Given the complexity of his medical issues, I believe the rehab hospital setting would be best. When medically and surgically ready, will alert our RT to continue pulmonary measures. Medical oversight of renal and vascular status to continue. I look forward to assisting with his recovery. History of Present Illness Reason for Consultation: High Risk Rehab Hospital Evaluation Attending Physician: Jose Raymond MD History of Present Illness Asked to look at patient's medical suitability for rehab hospital care and therapy. As reviewed, be underwent vascular surgery with some associated postoperative COPD/Respiratory concerns. Required some care in the ICU setting. He continues on supplemental oxygen and aggressive pulmonary toilet. Other concerns included some mild worsening of his GFR. He is feeling much better today. Less shortness of breath. Pain control is good. He is anxious to improve and interested in the level of therapy provided in the inpatient rehab hospital setting. Allergies Allergy/AdvReac Type Severity Reaction Status Date / Time No Known Allergies Allergy Verified 03/14/19 06:29 Home Medications Home Medications Medication Instructions Recorded Confirmed Type albuterol sulfate 1 - 2 inh INHALATION UD PRN 02/15/19 03/14/19 History aspirin [Aspir-81] 81 mg PO DAILY 02/15/19 03/14/19 History bupropion HCl (smoking deter) 150 mg PO BID 02/15/19 03/14/19 History cilostazol 100 mg PO BID 02/15/19 03/14/19 History fluticasone propion-salmeterol 1 puff INHALATION BID 02/15/19 03/14/19 History [Advair Diskus] nystatin 1 appln TOP TID #30 gm 02/28/19 03/14/19 Rx Patient History Medical History (Updated 03/20/19 @ 13:20 by Naveed Kimball MD) Acute hypercapnic respiratory failure Acute hypoxemic respiratory failure Asthma Chronic bronchitis COPD exacerbation Pre-diabetes PVD (peripheral vascular disease) Snores POSSIBLY DX WITH SLEEP APNEA "WHEN I WAS A CHILD" - NO DEVICE Surgical History (Updated 03/14/19 @ 16:56 by Kp Day MD) History of plastic surgery FACIAL RECONSTRUCTION/DENIES LIMITED ROM WITH JAW History of surgery on extremity L LEG/HARDWARE S/P aortobifemoral bypass surgery Status post epidural steroid injection HX EPIDURAL STEROID 10 YR AGO Family History Brother Family history of diabetes mellitus Brother Family history of diabetes mellitus Sister Family history of diabetes mellitus Grandmother Family history of diabetes mellitus Mother Family history of cancer Social History Preferred Language: Urdu Communication Ability: Effective Deputy Of Counter Intelligence Required: No Beliefs That Will Affect Care: Restorationist Restorationist Beliefs: NONDENOMINATIONAL Current Living Situation: Spouse Other Information That Helps Us Care for You: No Feels Safe at Home: Yes Safety Concerns: Feels Safe At This Time Smoking Status: Current every day smoker Tobacco Type: cigarettes ; Cigarettes Per Day: .5PPD - 1PPD/ADVISED NPO ; Do You Dip or Chew Tobacco: No ; Second Hand Exposure: No ; Tobacco Cessation Education Requested by Patient: No Hx Alcohol Use: No Hx Substance Use: No Review of Systems Review of Systems: as noted in the HPI Physical Exam Physical Exam: Comfortable HEENT--negative Pulmonary--exchange is comfortable Cardio--rate is good GI-functional Neuro--intact Results & Data Vital Signs (Past 12 Hours) Vital Signs Temp Pulse Pulse Resp BP Pulse Ox 03/20/19 12:00 37.0 C 75 20 132/69 96 03/20/19 11:17 36.8 C 68 13 123/77 96 03/20/19 11:12 68 18 96 03/20/19 07:40 36.6 C 76 16 125/78 90 03/20/19 07:14 73 20 90 03/20/19 04:36 36.4 C L 72 20 148/87 H 100 03/20/19 02:23 76 22 97 03/20/19 02:22 76 22 97
[2019-03-20] MEDS ORDERED: VANCOMYCIN TROUGH ONE (13:30)
[2019-03-20] MEDS ORDERED: FUROSEMIDE 40 MG in SYRINGE 0 ML IV ONE (13:30)
[2019-03-20] MEDS ORDERED: FUROSEMIDE 20 MG in SYRINGE 0 ML IV SCH (20:00)
[2019-03-20] MEDS: PANTOprazole 40 MG TAB PO SCH (21:18)
[2019-03-21] MEDS: PIPERACILLIN/TAZOBACTAM 3.375 GM in DEXTROSE 5% 100 ML IV SCH ×3 (02:32→17:15)
[2019-03-21] MEDS: METOCLOPRAMIDE HCL INJ 5 MG/ML 2 ML VIAL IV SCH ×4 (02:33→21:03)
[2019-03-21] MEDS: ALBUT/IPRATROP 3MG/0.5MG NEB 3 ML VIAL NEB SCH ×6 (03:02→23:04)
[2019-03-21] MEDS: HEPARIN SOD 5,000 UNIT/0.5 ML VIAL SQ SCH ×3 (05:48→20:50)
[2019-03-21] MEDS: BUDESONIDE 0.5 MG/2 ML VIAL (PULMICORT) NEB SCH ×2 (07:07→19:24)
[2019-03-21 07:10] LABS: Hematocrit (blood only) 24.9 % (42-52); Hemoglobin 8.4 g/dL (14.0-18.0); Mean Corpuscular Hemoglobin 31.2 pg (25-34); Mean Corpuscular Hgb Conc 33.7 g/dL (32-36); Mean Corpuscular Volume 92.6 fL (80-100); Platelet Count 260 K/uL (130-400); RDW Coefficient of Variation 14.5 % (11.5-14.5); RDW Standard Deviation 49.1 fL (36.4-46.3); Red Blood Count 2.69 M/uL (4.7-6.1)
[2019-03-21] MEDS: INSULIN ASPART 100 UNITS/ML 3 ML PEN SC SCH ×4 (07:46→20:54)
[2019-03-21 07:54] LABS: BUN Creatinine Ratio 18.7 (10-20); Calcium 7.9 mg/dl (8.5-10.1); Creatinine Clr Calc Pharmacy 87.2 ml/min; Est GFR (African American) 95.2; Est GFR (Non-African American) 82.2
[2019-03-21] MEDS ORDERED: POTASSIUM CHLORIDE 20 MEQ TABCR PO STA (08:01)
[2019-03-21] MEDS ORDERED: FUROSEMIDE 20 MG in SYRINGE 0 ML IV ONE (08:15)
--- NOTE | 2019-03-21 08:31 | XRay Report ---
XR chest 2V PA/lateral CLINICAL HISTORY: volume overload COMPARISON STUDY: March 19, 2019 FINDINGS: The heart remains at the upper limits of normal in size. There is radiographic evidence of pulmonary emphysema. There is a trace right pleural effusion. There are improving basilar airspace op acities. There is mild underlying interstitial thickening which may indicate superimposed mild volume overload.[ IMPRESSION: 1. Improving basilar airspace opacities 2. Trace right pleural effusion 3. Equivocal mild pulmonary vascular congestion/fluid overload ACT 112: Negative or not required by law. Electronically signed by: Gerardo Quesada M.D. 03/21/2019 8:30 AM
[2019-03-21] MEDS: DOCUSATE SODIUM 100 MG CAP PO SCH ×2 (09:10→20:49)
[2019-03-21] MEDS: PANTOprazole 40 MG TAB PO SCH ×2 (09:11→20:50)
--- NOTE | 2019-03-21 09:37 | Hospitalist Progress Note ---
Date of Service March 21, 2019 Assessment & Plan (1) Acute hypoxemic respiratory failure: (2) Acute hypercapnic respiratory failure: (3) COPD exacerbation: * Pt was admitted to the ICU from 03/14/19-03/17/19 for acute hypoxemic respiratory failure with hypercapnia where it was thought that he was in an acute COPD exacerbation. He was started on IV solumedrol for treatment but appears that this was stopped and then got a dose of prednisone 40 mg PO on 03/16/19 in the ICU prior to transfer to PCU. He was also being treated with IV diuresis due to large amount of volume he received during surgery and afterwards considering that he required pressors. He was + 7L on 03/17 * CXR on 03/19 with possible pneumonia developing * Initiated on Vanco/Zosyn on 03/19 given recent intubation/ICU admission --> MRSA swab negative. Vanc discontinued on 03/19 * Patient requiring BiPAP overnight 03/19, 5L NC morning of 03/20. Weaned to 2L evening 03/21 with O2 sat 91%. --> Had received Lasix 40mg IV x 2 on 03/19 -- additional 20mg IV x 2 on 03/20. Additional 20mg IV given AM 03/21 -- currently patient 91% on 2L Nasal Cannula. * Repeat CXR 03/21 with improving basilar opacities, trace R pleural effusion, mild pulm vasc congestion * WBC 9.7. Remains afebrile. Blood culture prelim NGTD * DuoNebs -- wheezing on exam likely secondary to pulmonary edema * Fluid restriction * 83kg prior to procedure, with max of 92.6kg on 03/18 -- current weight 87.7kg. Urine output ~2.1L over last 24 hours with net balance -1.7L * Continue daily weights, strict I&Os * Patient may benefit from continued 20-40mg PO lasix once discharged along with potassium supplementation if patient to be discharged and still up >3kg from baseline weight (4) S/P aortobifemoral bypass surgery: * Dr. Raymond is primary team, appreciate the consultation * Bilateral LE edema likely secondary to fluid, continue IV lasix as above. * Hgb is 8.4 as of 03/21 -- will start on iron supplementation --> patient should likely continue this for 2-3 months - would rec stool softener to prevent further constipation (5) Postoperative ileus: * NGT out, advance diet to full liquids to reduce the amount of fluid consumption with edema. * Consider KUB if worsening or changes , however patient with decreased pain/fullness (6) Pre-diabetes: * BSGs mildly elevated -- A1c obtained -- 5.9 * --> counseled patient on diagnosis of pre-diabetes and complications associated with microvascular changes -- diet/exercise, will need outpatient follow up and repeat in 3 months. * No initiation of anti-hyperglycemic agents currently, although patient may benefit from statin agent for primary prevention. * Lipid panel -- elevated triglycerides at 173, cholesterol 153, HDL 26, LDL 92 -- could consider addition of gemfibrozil or similar. Could consider statin for primary prevention. ASCVD risk 11.2% (7) Hypokalemia: * K 3.0 -- ordered 40MEQ PO * Will continue with 20meq BID given continued diuresis -- may need to continue as outpatient if weight still above baseline/requiring O2 * Repeat labs in AM (8) DVT prophylaxis: * Switch from lovenox to heparin with aggressive diuresis with hx of MOON Dispo: From home, to assist with d/c, PT/OT on board Thank you for allowing hospitalist service to participate in the care of Mr. Beard. Medicine to follow along. Admission and Anticipated Discharge Date Admission Date: March 14, 2019 Supervising Physician Co-Signing Physician Notes Attending Attestation - Chart reviewed in detail, care plan d/w SYLVESTER Greenwood. I agree w/ the velasquez components of her documentation. Patient with acute hypoxic/hypercarbic resp failure in setting of recent vascular surgery due to volume overload. Diuresing well thus far. Cont IV diuresis. Agree he will likely require a few days of oral diuretics at discharge. Efren Mcmahon MD Subjective Patient evaluated at bedside. Denies shortness of breath. Resting comfortably with oxymask on. Confirms he was able to ambulate in the halls without difficulty with walker, although per discussion with RN patient's O2 sat dropped to 78% at one point. Continues to have cough productive of white phlegm, but the cough has decreased. Pain at incisional sites, manageable with pain medications. Hopeful to return home with home health by the end of the week. Denies any fever, chills, chest pain, shortness of breath, abdominal pain, nausea or vomiting. Denies dysuria, however does have mao catheter. Discussed discontinuing tonight and to make sure that we are recording accurate urine output. Discussed plans for additional lasix. Review of Systems Review of Systems: All systems reviewed & are unremarkable except as noted in HPI & below Physical Exam Constitutional: WD/WN, vitals as above no acute distress Neck: trachea midline, no thyromegaly Respiratory: normal respiratory effort and + cough; no respiratory distress and no labored breathing Auscultation: + diminished lung sounds (R lung base), + rhonchi (bases) and + wheezes (primarily R sided, posteriorly. Right sided anterior lung woodson end expira) Cardiovascular: Rate/Rhythm: regular rate and regular rhythm Vessels: no JVD Extremities: + edema (1+ edema RLE, trace edema LLE) Gastrointestinal (Abdomen): Inspection/Auscultation: + abdomen distended (decreased) Percussion/Palpation: no guarding and abdomen not rigid Soft, minimally tender along surgical incision. +BS Skin: warm and dry - bilateral surgical incisions with vera as well as abdominal incision with vera- without evidence of erythema/drainage or streaking B/l LE slightly cool to touch -- pulses 2+ dp, pt bilaterally Neurologic: PERRL, EOMI, accommodation nl, no face palsy, no dysarthria Psychiatric: A+Ox3, euthymic affect Results & Data ([facility]) Vital Signs (Past 12 Hours) Vital Signs Temp Pulse Pulse Resp BP Pulse Ox 03/21/19 07:39 36.8 C 78 18 126/80 3 L 03/21/19 07:08 71 17 97 03/21/19 04:07 36.7 C 87 18 112/72 91 03/21/19 03:03 86 18 94 03/21/19 00:00 63 03/20/19 23:35 36.5 C 69 20 112/73 95 03/20/19 22:55 69 16 94 Laboratory Results 03/21/19 03/21/19 03/21/19 Range/Units 16:07 11:16 07:17 WBC (4.8-10.8) K/uL RBC (4.7-6.1) M/uL Hgb (14.0-18.0) g/dL Hct (42-52) % MCV (80-100) fL MCH (25-34) pg MCHC (32-36) g/dL RDW Std Deviation (36.4-46.3) fL RDW Coeff of Raven (11.5-14.5) % Plt Count (130-400) K/uL MPV (7.4-10.4) fL Sodium (136-145) mmol/L Potassium (3.5-5.1) mmol/L Chloride (98-107) mmol/L Carbon Dioxide (21-32) mmol/L Anion Gap (3-11) BUN (7-18) mg/dl Creatinine (0.6-1.4) mg/dl Est Cr Clr Drug Dosing ml/min Est GFR ( Amer) Est GFR (Non-Af Amer) BUN/Creatinine Ratio (10-20) Glucose (70-99) mg/dl POC Glucose 120 H 114 H 107 H (70-99) mg/dl Calcium (8.5-10.1) mg/dl Magnesium (1.8-2.4) mg/dl Triglycerides (0-150) mg/dl Cholesterol (0-200) mg/dl LDL Cholesterol, Calc mg/dl VLDL Cholesterol, Calc mg/dl HDL Cholesterol mg/dl Cholesterol/HDL Ratio 03/21/19 03/21/19 03/21/19 Range/Units 06:28 06:28 06:28 WBC 9.70 (4.8-10.8) K/uL RBC 2.69 L (4.7-6.1) M/uL Hgb 8.4 L (14.0-18.0) g/dL Hct 24.9 L (42-52) % MCV 92.6 (80-100) fL MCH 31.2 (25-34) pg MCHC 33.7 (32-36) g/dL RDW Std Deviation 49.1 H (36.4-46.3) fL RDW Coeff of Raven 14.5 (11.5-14.5) % Plt Count 260 (130-400) K/uL MPV 9.0 (7.4-10.4) fL Sodium 141 (136-145) mmol/L Potassium 3.0 L D (3.5-5.1) mmol/L Chloride 104 (98-107) mmol/L Carbon Dioxide 33 H (21-32) mmol/L Anion Gap 4.0 (3-11) BUN 19 H (7-18) mg/dl Creatinine 1.04 (0.6-1.4) mg/dl Est Cr Clr Drug Dosing 87.2 ml/min Est GFR ( Amer) 95.2 Est GFR (Non-Af Amer) 82.2 BUN/Creatinine Ratio 18.7 (10-20) Glucose 106 H (70-99) mg/dl POC Glucose (70-99) mg/dl Calcium 7.9 L (8.5-10.1) mg/dl Magnesium 1.8 (1.8-2.4) mg/dl Triglycerides 173 H (0-150) mg/dl Cholesterol 153 (0-200) mg/dl LDL Cholesterol, Calc 92 mg/dl VLDL Cholesterol, Calc 35 mg/dl HDL Cholesterol 26 mg/dl Cholesterol/HDL Ratio 6 03/20/19 Range/Units 20:18 WBC (4.8-10.8) K/uL RBC (4.7-6.1) M/uL Hgb (14.0-18.0) g/dL Hct (42-52) % MCV (80-100) fL MCH (25-34) pg MCHC (32-36) g/dL RDW Std Deviation (36.4-46.3) fL RDW Coeff of Raven (11.5-14.5) % Plt Count (130-400) K/uL MPV (7.4-10.4) fL Sodium (136-145) mmol/L Potassium (3.5-5.1) mmol/L Chloride (98-107) mmol/L Carbon Dioxide (21-32) mmol/L Anion Gap (3-11) BUN (7-18) mg/dl Creatinine (0.6-1.4) mg/dl Est Cr Clr Drug Dosing ml/min Est GFR ( Amer) Est GFR (Non-Af Amer) BUN/Creatinine Ratio (10-20) Glucose (70-99) mg/dl POC Glucose 163 H (70-99) mg/dl Calcium (8.5-10.1) mg/dl Magnesium (1.8-2.4) mg/dl Triglycerides (0-150) mg/dl Cholesterol (0-200) mg/dl LDL Cholesterol, Calc mg/dl VLDL Cholesterol, Calc mg/dl HDL Cholesterol mg/dl Cholesterol/HDL Ratio PG Care Time/CCT Total # of Minutes Spent Total Time Spent with Patient: Total time spent is greater than 50% in coordination of care (as documented) at patient's floor/unit and/or counseling patient: Coding Level of Care Code 52514 Subseq Hosp Care Lvl 3 Diagnoses Acute hypoxemic respiratory failure J96.01 Acute hypercapnic respiratory failure J96.02 COPD exacerbation J44.1 S/P aortobifemoral bypass surgery Z95.828 Postoperative ileus K91.89; K56.7 Pre-diabetes R73.03 Hypokalemia E87.6 DVT prophylaxis Z29.9
--- NOTE | 2019-03-21 13:51 | Surgery Progress Note ---
Date of Service March 21, 2019 Assessment & Plan (1) S/P aortobifemoral bypass surgery: Pt BLE perfusion doing well, pain controlled. Continue PT/OT and increase activity. Possible d/c home with home health end of this week if oxygen requirements stabilize and can be on oral abx. (2) Postoperative ileus: Improved, continue stool softeners. (3) Acute renal insufficiency: Patient has a small increase in his creatinine postoperatively due to hypotension and hypovolemia. His creatinine is now returned to normal with fluids. Subjective 53 yo m POD #7 after aortobifemoral bypass graft, seen in f/u today. Pt states feeling significantly improved. States not feeling SOB today and feels the swelling in his abd is improved as well. Denies any other new complaints. Ambulating well with walker. Review of Systems Review of Systems: All systems reviewed & are unremarkable except as noted in HPI & below Physical Exam Constitutional: WD/WN, vitals as above comfortable Respiratory: no labored breathing Auscultation: + diminished lung sounds and + rhonchi Cardiovascular: Rate/Rhythm: regular rate and regular rhythm Vessels: femoral pulses present, brachial pulses present and radial pulses present; + abnormal peripheral pulses (+2 BLE distal pulses. ) Extremities: normal capillary refill and + edema Gastrointestinal (Abdomen): Inspection/Auscultation: + abdomen distended (less than yesterday. Incision C/D/I) and normal bowel sounds Percussion/Palpation: + abdomen tender and abdomen soft Musculoskeletal: Extremities: strength 5/5 throughout Skin: + incision (C/D/I, tender, minimal serous drainage); no erythema Neurologic: moves all extremities and awake; no focal motor deficits and not confused Psychiatric: Orientation: alert and oriented x 3 Affect: euthymic affect Results & Data Vital Signs (Past 12 Hours) Vital Signs Temp Pulse Resp BP BP Pulse Ox 03/21/19 12:00 77 03/21/19 11:24 71 03/21/19 11:12 37.0 C 82 16 124/79 91 03/21/19 08:00 83 03/21/19 07:39 36.8 C 78 18 126/80 95 03/21/19 07:08 71 17 97 03/21/19 04:07 36.7 C 87 18 112/72 91 03/21/19 03:03 86 18 94
[2019-03-21] MEDS: FERROUS SULFATE 325 MG TAB PO SCH (17:14)
[2019-03-21] MEDS ORDERED: FUROSEMIDE 40 MG in SYRINGE 0 ML IV ONE (17:46)
[2019-03-21] MEDS: OXYCODONE/ACETAMINOPHEN 5mg/325mg TAB PO PRN (20:48)
[2019-03-21] MEDS: POTASSIUM CHLORIDE 20 MEQ TABCR PO SCH (20:49)
[2019-03-22] MEDS: ALBUT/IPRATROP 3MG/0.5MG NEB 3 ML VIAL NEB SCH ×6 (02:07→22:08)
[2019-03-22] MEDS: METOCLOPRAMIDE HCL INJ 5 MG/ML 2 ML VIAL IV SCH ×4 (02:45→19:49)
[2019-03-22] MEDS: PIPERACILLIN/TAZOBACTAM 3.375 GM in DEXTROSE 5% 100 ML IV SCH ×3 (02:45→19:49)
[2019-03-22] MEDS: HEPARIN SOD 5,000 UNIT/0.5 ML VIAL SQ SCH ×3 (06:05→20:53)
[2019-03-22 07:05] LABS: Basophils # (auto) 0.03 K/uL (0-0.2); Basophils % (auto) 0.4 %; Eosinophils # (auto) 0.34 K/uL (0-0.5); Hematocrit (blood only) 27.3 % (42-52); Hemoglobin 8.9 g/dL (14.0-18.0); Immature Granulocytes # (auto) 0.38 K/uL (0.00-0.02); Immature Granulocytes % (auto) 4.5 %; Lymphocytes # (auto) 1.24 K/uL (1.2-3.4); Lymphocytes % (auto) 14.7 %; Mean Corpuscular Hemoglobin 30.9 pg (25-34); Mean Corpuscular Hgb Conc 32.6 g/dL (32-36); Mean Corpuscular Volume 94.8 fL (80-100); Mean Platelet Volume 9.3 fL (7.4-10.4); Monocytes # (auto) 1.18 K/uL (0.11-0.59); Neutrophils # (auto) 5.26 K/uL (1.4-6.5); Neutrophils % (auto) 62.4 %; Platelet Count 271 K/uL (130-400); RDW Coefficient of Variation 14.8 % (11.5-14.5); RDW Standard Deviation 50.4 fL (36.4-46.3); Red Blood Count 2.88 M/uL (4.7-6.1); White Blood Count 8.43 K/uL (4.8-10.8)
[2019-03-22] MEDS: BUDESONIDE 0.5 MG/2 ML VIAL (PULMICORT) NEB SCH ×2 (07:26→19:03)
[2019-03-22 07:31] LABS: BUN Creatinine Ratio 17.2 (10-20); Calcium 8.4 mg/dl (8.5-10.1); Creatinine Clr Calc Pharmacy 85.4 ml/min; Est GFR (Non-African American) 79.4; Potassium 3.3 mmol/L (3.5-5.1)
[2019-03-22] MEDS ORDERED: POTASSIUM CHLORIDE 20 MEQ TABCR PO STA (07:37)
[2019-03-22] MEDS: INSULIN ASPART 100 UNITS/ML 3 ML PEN SC SCH ×4 (08:05→20:54)
[2019-03-22] MEDS: OXYCODONE/ACETAMINOPHEN 5mg/325mg TAB PO PRN (08:06)
[2019-03-22] MEDS: DOCUSATE SODIUM 100 MG CAP PO SCH ×2 (08:07→20:51)
[2019-03-22] MEDS: PANTOprazole 40 MG TAB PO SCH ×2 (08:07→20:52)
[2019-03-22] MEDS: FERROUS SULFATE 325 MG TAB PO SCH ×2 (08:08→18:25)
[2019-03-22] MEDS: POTASSIUM CHLORIDE 20 MEQ TABCR PO SCH ×2 (08:08→20:52)
--- NOTE | 2019-03-22 11:12 | Surgery Progress Note ---
Date of Service March 22, 2019 Assessment & Plan (1) S/P aortobifemoral bypass surgery: Pt BLE perfusion doing well, pain controlled. Continue PT/OT and increase activity. Possible d/c home with home health end of this week if oxygen requirements stabilize and can be on oral abx. Discussed with medicine service, planning for 2-step tomorrow morning, and possible d/c on levaquin, ferrous sulfate. (2) Postoperative ileus: Improved, continue stool softeners. Per pt, had BM again this AM. (3) Acute renal insufficiency: Patient has a small increase in his creatinine postoperatively due to hypotension and hypovolemia. His creatinine is now returned to normal with fluids. Subjective 53 yo m POD #8 after aortobifemoral bypass graft, seen in f/u today. Pt states feeling significantly improved. States no SOB today and feels the swelling is improved as well. Denies any other new complaints. Ambulating well with walker. Review of Systems Review of Systems: All systems reviewed & are unremarkable except as noted in HPI & below Physical Exam Constitutional: WD/WN, vitals as above comfortable Respiratory: no labored breathing Auscultation: + diminished lung sounds Cardiovascular: Rate/Rhythm: regular rate and regular rhythm Vessels: femoral pulses present, brachial pulses present and radial pulses present; + abnormal peripheral pulses (+2 BLE distal pulses. ) Extremities: normal capillary refill and + edema Gastrointestinal (Abdomen): Inspection/Auscultation: + abdomen distended (less than yesterday. Incision C/D/I) and normal bowel sounds Percussion/Palpation: + abdomen tender and abdomen soft Musculoskeletal: Extremities: strength 5/5 throughout Skin: + incision (C/D/I, tender, minimal serous drainage); no erythema Neurologic: moves all extremities and awake; no focal motor deficits and not confused Psychiatric: Orientation: alert and oriented x 3 Affect: euthymic affect Results & Data Vital Signs (Past 12 Hours) Vital Signs Temp Pulse Resp BP BP Pulse Ox 03/22/19 11:01 79 16 95 03/22/19 08:11 37.2 C 80 16 121/77 91 03/22/19 07:27 93 H 22 87 L 03/22/19 03:55 93 03/22/19 03:38 37.2 C 80 20 110/67 86 L 02/13/20 02:08 71 18 91 03/22/19 00:01 37.1 C 53 L 20 143/78 H 96
--- NOTE | 2019-03-22 11:22 | Hospitalist Progress Note ---
Date of Service March 22, 2019 Assessment & Plan (1) Acute hypoxemic respiratory failure: (2) Acute hypercapnic respiratory failure: (3) COPD exacerbation: * Pt was admitted to the ICU from 03/14/19-03/17/19 for acute hypoxemic respiratory failure with hypercapnia where it was thought that he was in an acute COPD exacerbation. He was started on IV solumedrol for treatment but appears that this was stopped and then got a dose of prednisone 40 mg PO on 03/16/19 in the ICU prior to transfer to PCU. He was also being treated with IV diuresis due to large amount of volume he received during surgery and afterwards considering that he required pressors. He was + 7L on 03/17 * CXR on 03/19 with possible pneumonia developing * Initiated on Vanco/Zosyn on 03/19 given recent intubation/ICU admission --> MRSA swab negative. Vanc discontinued on 03/19 * --> Will transition to Levaquin PO tomorrow morning * Patient requiring BiPAP overnight 03/19, 5L NC morning of 03/20. Weaned to 2L evening 03/21 with O2 sat 91%. --> Had received Lasix 40mg IV x 2 on 03/19 -- additional 20mg IV x 2 on 03/20. Additional 20mg IV given AM 03/21 and 40mg evening 03/21 -- currently patient 95% RA, however did have periods in high 80s morning and vitals just input with patient back on 2L NC with O2 sat 94% * Repeat CXR 03/21 with improving basilar opacities, trace R pleural effusion, mild pulm vasc congestion * WBC 8.4k. Remains afebrile. Blood culture prelim NGTD * DuoNebs -- wheezing on exam likely secondary to pulmonary edema --> IMPROVED 03/22 * Fluid restriction * 83kg prior to procedure, with max of 92.6kg on 03/18 -- current weight 87.8kg. Net negative ~3.6L 03/21-03/22 * Continue daily weights, strict I&Os -- patient req mao removed. Order placed. * Of note, patient dx sleep apnea as a child, and likely does have some component. Would consider outpatient sleep study. * COPD/Pneumonia clinic follow-up consult placed * Patient likely runs 88-low 90s O2 given significant smoking history. * Two step ordered in AM (4) S/P aortobifemoral bypass surgery: * POD #8 s/p with Dr. Raymond is primary team * Bilateral LE edema likely secondary to surgery. At expected level of swelling currently. Lung sounds improved. CUrrently 95% on RA -- no need for further diuresis at this time * Hgb improved to 8.9 from 8.4 as of 03/21 after initiation of iron supplementation-> patient should likely continue this for 2-3 months - rec continued stool softener to prevent constipation (5) Postoperative ileus: * NGT out, advance diet to full liquids to reduce the amount of fluid consumption with edema. * RESOLVED --> Patient with large BM today (6) Pre-diabetes: * BSGs mildly elevated -- A1c obtained -- 5.9 * --> counseled patient on diagnosis of pre-diabetes and complications associated with microvascular changes -- diet/exercise, will need outpatient follow up and repeat in 3 months. * No initiation of anti-hyperglycemic agents currently, although patient may benefit from statin agent for primary prevention. * Lipid panel -- elevated triglycerides at 173, cholesterol 153, HDL 26, LDL 92 -- could consider addition of gemfibrozil or similar. Could consider statin for primary prevention. ASCVD risk 11.2% (7) Hypokalemia: * K 3.3-- likley secondary to diuresis with furosemide -- on 20meq BID plus additional 20meq morning 03/22 -- repeat in AM -- if wnl, may discontinue (8) DVT prophylaxis: * Switch from lovenox to heparin with aggressive diuresis with hx of MOON Dispo: From home, to assist with d/c, PT/OT on board -- patient would like to go home with services. Possibly tomorrow. Thank you for allowing hospitalist service to participate in the care of Mr. Beard. Medicine to follow along. Admission and Anticipated Discharge Date Admission Date: March 14, 2019 Supervising Physician Co-Signing Physician Notes Attending Attestation - Chart reviewed in detail, care plan d/w SYLVESTER Greenwood. I agree w/ the velasquez components of her documentation. Patient with acute hypoxic/hypercarbic resp failure - likely 2nd to volume overload (and possibly his COPD). Cont IV diuresis. Efren Mcmahon MD Subjective Patient evaluated with co-worker at bedside. States he is feeling great. Pain tolerable with pain medication. Still has cough with clear/white sputum, but has significantly decreased. Eating and drinking without difficulty. Large BM this morning. Able to walk halls. Discussed possibility that he may need oxygen at least short term at discharge but that we will perform an official 2step prior t o discharge tomorrow. Plan to transition to oral antibiotics. Patient agreeable to plan. Asked if he ever been told about sleep apnea. Patient states he was told he had it when he was younger but never had any formal testing as an adult or used CPAP. He states he was told he should have his tonsils removed when he was younger but did not have them removed. Denies any fever, chills, chest pain, shortness of breath, abdominal pain (outside of incisional pain and pain with deep cough). Plans for Mao removal. Anxious to be discharged, hopeful for tomorrow. Discussed follow up with COPD/pneumonia clinic and that it is a good idea to get established with pulmonary given smoking history. Agreeable for follow-up. Consult placed. Review of Systems Review of Systems: All systems reviewed & are unremarkable except as noted in HPI & below Physical Exam Constitutional: WD/WN, vitals as above comfortable; no acute distress Eyes: + anicteric sclerae and PERRL ENMT: Mallampati Class: III mmm Neck: trachea midline, no thyromegaly Respiratory: normal respiratory effort and + cough; no respiratory distress and no labored breathing Auscultation: + diminished lung sounds (R lung base), + crackles (bibasilar crackles) and + wheezes (very fine wheezing posterior lung woodson, end expiratory. much improved) Cardiovascular: Rate/Rhythm: regular rate and regular rhythm Heart Sounds: no murmur Vessels: no JVD Extremities: + edema (1+ edema RLE, trace edema LLE) Gastrointestinal (Abdomen): Inspection/Auscultation: + abdomen distended (decreased) and normal bowel sounds Percussion/Palpation: + abdomen tender (minimally tender to palpation along incision) and abdomen soft; no guarding and abdomen not rigid Skin: warm and dry - bilateral surgical incisions with vera as well as abdominal incision with vera- without evidence of erythema/drainage or streaking B/l LE with palpable pulses, dp pt. less cool today Neurologic: PERRL, EOMI, accommodation nl, no face palsy, no dysarthria Psychiatric: A+Ox3, euthymic affect Results & Data ([facility]) Vital Signs (Past 12 Hours) Vital Signs Temp Pulse Resp BP BP Pulse Ox 03/22/19 11:10 36.7 C 74 16 120/70 95 03/22/19 11:01 79 16 95 03/22/19 08:11 37.2 C 80 16 121/77 91 03/22/19 07:27 93 H 22 87 L 03/22/19 03:55 93 03/22/19 03:38 37.2 C 80 20 110/67 86 L 03/22/19 02:08 71 18 91 03/22/19 00:01 37.1 C 53 L 20 143/78 H 96 PG Care Time/CCT Total # of Minutes Spent Total Time Spent with Patient: Total time spent is greater than 50% in coordination of care (as documented) at patient's floor/unit and/or counseling patient: Coding Level of Care Code 87448 Subseq Hosp Care Lvl 3 Diagnoses Acute hypoxemic respiratory failure J96.01 Acute hypercapnic respiratory failure J96.02 COPD exacerbation J44.1 S/P aortobifemoral bypass surgery Z95.828 Postoperative ileus K91.89; K56.7 Pre-diabetes R73.03 Hypokalemia E87.6 DVT prophylaxis Z29.9
[2019-03-22] MEDS ORDERED: Nursing to Pharmacy Communication ONE (20:07)
[2019-03-22] MEDS ORDERED: FUROSEMIDE 20 MG TAB PO SCH (20:30)
[2019-03-23] MEDS: OXYCODONE/ACETAMINOPHEN 5mg/325mg TAB PO PRN ×2 (01:01→07:40)
[2019-03-23] MEDS: ALBUT/IPRATROP 3MG/0.5MG NEB 3 ML VIAL NEB SCH ×3 (02:44→10:55)
[2019-03-23] MEDS: METOCLOPRAMIDE HCL INJ 5 MG/ML 2 ML VIAL IV SCH ×2 (04:37→07:50)
[2019-03-23] MEDS: HEPARIN SOD 5,000 UNIT/0.5 ML VIAL SQ SCH (05:57)
[2019-03-23] MEDS: BUDESONIDE 0.5 MG/2 ML VIAL (PULMICORT) NEB SCH (07:13)
[2019-03-23] MEDS: PANTOprazole 40 MG TAB PO SCH (07:30)
[2019-03-23] MEDS: DOCUSATE SODIUM 100 MG CAP PO SCH (07:31)
[2019-03-23] MEDS: FERROUS SULFATE 325 MG TAB PO SCH (07:31)
[2019-03-23] MEDS: POTASSIUM CHLORIDE 20 MEQ TABCR PO SCH (07:32)
[2019-03-23] MEDS: INSULIN ASPART 100 UNITS/ML 3 ML PEN SC SCH (07:55)
[2019-03-23 07:58] LABS: Basophils # (auto) 0.03 K/uL (0-0.2); Basophils % (auto) 0.3 %; Eosinophils # (auto) 0.39 K/uL (0-0.5); Hematocrit (blood only) 29.9 % (42-52); Hemoglobin 9.8 g/dL (14.0-18.0); Immature Granulocytes # (auto) 0.42 K/uL (0.00-0.02); Immature Granulocytes % (auto) 4.3 %; Lymphocytes # (auto) 1.82 K/uL (1.2-3.4); Lymphocytes % (auto) 18.8 %; Mean Corpuscular Hemoglobin 30.9 pg (25-34); Mean Corpuscular Hgb Conc 32.8 g/dL (32-36); Mean Corpuscular Volume 94.3 fL (80-100); Mean Platelet Volume 8.7 fL (7.4-10.4); Monocytes # (auto) 1.04 K/uL (0.11-0.59); Monocytes % (auto) 10.8 %; Neutrophils # (auto) 5.96 K/uL (1.4-6.5); Neutrophils % (auto) 61.8 %; Platelet Count 315 K/uL (130-400); RDW Coefficient of Variation 14.5 % (11.5-14.5); RDW Standard Deviation 49.6 fL (36.4-46.3); Red Blood Count 3.17 M/uL (4.7-6.1); White Blood Count 9.66 K/uL (4.8-10.8)
[2019-03-23 08:28] LABS: Albumin Level 2.7 gm/dl (3.4-5.0); BUN Creatinine Ratio 14.4 (10-20); Creatinine Clr Calc Pharmacy 77.7 ml/min; Est GFR (African American) 83.5
[2019-03-23 08:49] LABS: Albumin Globulin Ratio 0.7 (0.9-2); Bilirubin,Total 0.4 mg/dl (0.2-1); Globulin 4.1 gm/dl (2.5-4.0); Total Protein 6.8 gm/dl (6.4-8.2)
--- NOTE | 2019-03-23 10:00 | Surgery Progress Note ---
Date of Service March 23, 2019 Assessment & Plan (1) S/P aortobifemoral bypass surgery: Pt BLE perfusion doing well, pain controlled. D/C home today with services, Home O2 and nebulizer. (2) Postoperative ileus: Improved, continue stool softeners. (3) Acute renal insufficiency: Patient has a small increase in his creatinine postoperatively due to hypotension and hypovolemia. His creatinine is now returned to normal with fluids. Subjective 53 yo m POD #9 after aortobifemoral bypass graft, seen in f/u today. Pt states feeling significantly improved. States no SOB today and feels the swelling is improved as well. Denies any other new complaints. Ambulating well with walker. Had 2 step this AM, desats with ambulation, will require oxygen 2L at rest, 3 L with ambulation. Review of Systems Review of Systems: All systems reviewed & are unremarkable except as noted in HPI & below Physical Exam Constitutional: WD/WN, vitals as above comfortable Respiratory: no labored breathing Auscultation: + diminished lung sounds Cardiovascular: Rate/Rhythm: regular rate and regular rhythm Vessels: femoral pulses present, brachial pulses present and radial pulses present; + abnormal peripheral pulses (+2 BLE distal pulses. ) Extremities: normal capillary refill and + edema Gastrointestinal (Abdomen): Inspection/Auscultation: + abdomen distended (less than yesterday. Incision C/D/I) and normal bowel sounds Percussion/Palpation: + abdomen tender and abdomen soft Musculoskeletal: Extremities: strength 5/5 throughout Skin: + incision (C/D/I, tender, minimal serous drainage); no erythema Neurologic: moves all extremities and awake; no focal motor deficits and not confused Psychiatric: Orientation: alert and oriented x 3 Affect: euthymic affect Results & Data Vital Signs (Past 12 Hours) Vital Signs Temp Pulse Pulse Pulse Pulse Pulse Pulse 03/23/19 08:55 79 94 H 95 H 83 74 03/23/19 08:00 65 03/23/19 07:47 36.6 C 03/23/19 07:37 03/23/19 04:38 36.6 C 03/23/19 02:44 03/22/19 23:38 36.7 C 03/22/19 22:09 Pulse Resp Resp Resp Resp Resp Resp 03/23/19 08:55 20 20 20 20 20 03/23/19 08:00 03/23/19 07:47 70 20 03/23/19 07:37 78 18 03/23/19 04:38 73 18 03/23/19 02:44 78 18 03/22/19 23:38 91 H 20 03/22/19 22:09 88 16 BP BP Pulse Ox Pulse Ox Pulse Ox Pulse Ox Pulse Ox 03/23/19 08:55 91 91 87 L 92 03/23/19 08:00 03/23/19 07:47 119/68 96 03/23/19 07:37 95 03/23/19 04:38 121/69 90 03/23/19 02:44 96 03/22/19 23:38 142/95 H 90 03/22/19 22:09 94 Pulse Ox 03/23/19 08:55 87 L 03/23/19 08:00 03/23/19 07:47 03/23/19 07:37 03/23/19 04:38 03/23/19 02:44 03/22/19 23:38 03/22/19 22:09
[2019-03-23] MEDS ORDERED: levoFLOXacin 750 MG TAB PO SCH (11:00)
--- NOTE | 2019-03-23 12:10 | Hospitalist Progress Note ---
Date of Service March 23, 2019 Assessment & Plan (1) Acute hypoxemic respiratory failure: (2) Acute hypercapnic respiratory failure: (3) COPD exacerbation: * Pt was admitted to the ICU from 03/14/19-03/17/19 for acute hypoxemic respiratory failure with hypercapnia where it was thought that he was in an acute COPD exacerbation. He was started on IV solumedrol for treatment but appears that this was stopped and then got a dose of prednisone 40 mg PO on 03/16/19 in the ICU prior to transfer to PCU. He was also being treated with IV diuresis due to large amount of volume he received during surgery and afterwards considering that he required pressors. He was + 7L on 03/17 * CXR on 03/19 with possible pneumonia developing * Initiated on Vanco/Zosyn on 03/19 given recent intubation/ICU admission --> MRSA swab negative. Vanc discontinued on 03/19 --> transitioned to levaquin PO * Patient requiring BiPAP overnight 03/19, 5L NC morning of 03/20. Weaned to 2L evening 03/21 with O2 sat 91%. --> Had received Lasix 40mg IV x 2 on 03/19 -- additional 20mg IV x 2 on 03/20. Additional 20mg IV given AM 03/21 and 40mg evening 03/21. Lasix 20mg PO given evening of 03/22 * Repeat CXR 03/21 with improving basilar opacities, trace R pleural effusion, mild pulm vasc congestion * WBC 8.4k. Remains afebrile. Blood culture prelim NGTD * DuoNebs -- wheezing on exam likely secondary to pulmonary edema --> IMPROVED 03/22 * Fluid restriction * 83kg prior to procedure, with max of 92.6kg on 03/18 -- current weight 85.1kg -- talked with primary, who would like to avoid any further diuresis, given slight bump in Cr, 1.13. * Continue daily weights, strict I&Os -- patient req mao removed. Order placed. * Of note, patient dx sleep apnea as a child, and likely does have some component. Would consider outpatient sleep study -- to be follow up with at pul appt * COPD/Pneumonia clinic follow-up consult placed * Patient likely runs 88-low 90s O2 given significant smoking history. * Two step ordered-- patient req 2L at rest, 3L with ambulation. 96% on 2L. CM set up delivery (4) S/P aortobifemoral bypass surgery: * POD #9 s/p with Dr. Raymond is primary team * Bilateral LE edema likely secondary to surgery. At expected level of swelling currently. Lung sounds improved. CUrrently 95% on RA -- no need for further diuresis at this time * Hgb improved to 9.8-> patient should continue iron supplementation for 2-3 months - rec continued stool softener to prevent constipation (5) Postoperative ileus: * NGT out, advance diet to full liquids to reduce the amount of fluid consumption with edema. * RESOLVED --> Patient with large BM (6) Pre-diabetes: * BSGs mildly elevated -- A1c obtained -- 5.9 * --> counseled patient on diagnosis of pre-diabetes and complications associated with microvascular changes -- diet/exercise, will need outpatient follow up and repeat in 3 months. * No initiation of anti-hyperglycemic agents currently, although patient may benefit from statin agent for primary prevention. * Lipid panel -- elevated triglycerides at 173, cholesterol 153, HDL 26, LDL 92 -- could consider addition of gemfibrozil or similar. Could consider statin for primary prevention. ASCVD risk 11.2% (7) Hypokalemia: * Resolved -- likely secondary to aggressive diuretic use as above * K 4.0 (8) DVT prophylaxis: * Switched from lovenox to heparin with aggressive diuresis with hx of MOON Dispo: From home, to assist with d/c, PT/OT on board -- patient to be discharged with [facility] for pna, iron supplementation, pain medication and stool softener Admission and Anticipated Discharge Date Admission Date: March 14, 2019 Supervising Physician Co-Signing Physician Notes Attending Attestation - Chart reviewed in detail, care plan d/w SYLVESTER Greenwood. I agree w/ the velasquez components of her documentation. Patient with acute hypoxic/hypercarbic resp failure s/p vascular surgery earlier this admission. Resp failure markedly improved. Largest component was likely due to volume overload. Has diuresed significantly over the last few days. Weight today is only 2 kg above pre-op weight. 2-step completed; does need ambulatory oxygen; this has been arranged by case management. Completing course of antibiotics for possible pneumonia. Labs/vitals including creatinine remain stable (Cr 1.1 today). Did have acute kidney injury early in stay - resolved. Ok from medical standpoint to d/c home today. Efren Mcmahon MD Subjective Patient up in chair, dressed and eating lunch. Feels ready for discharge. Denies any chest pain, shortness of breath. Swelling improved. Eating, drinking without difficulty. Bowels moving. Tolerable incisional pain. Discussed utilization of oxygen and that this may be temporary. Follow up scheduled for pneumonia/copd clinic. To finish course of abx for total treatment 10 days. Review of Systems Review of Systems: All systems reviewed & are unremarkable except as noted in HPI & below Physical Exam Constitutional: WD/WN, vitals as above comfortable; no acute distress Eyes: + anicteric sclerae and PERRL ENMT: Mallampati Class: III Neck: trachea midline, no thyromegaly Respiratory: normal respiratory effort; no respiratory distress and no labored breathing Auscultation: + crackles (bibasilar crackles) and + wheezes (very fine wheezing posterior lung woodson, end expiratory. much improved) Cardiovascular: Rate/Rhythm: regular rate and regular rhythm Heart Sounds: no murmur Vessels: no JVD Extremities: + edema (1+ edema RLE, trace edema LLE) Gastrointestinal (Abdomen): Inspection/Auscultation: normal bowel sounds Percussion/Palpation: + abdomen tender (minimally tender to palpation along incision); no guarding and abdomen not rigid Skin: no rashes, warm and dry Psychiatric: A+Ox3, euthymic affect Results & Data ([facility]) Vital Signs (Past 12 Hours) Vital Signs Temp Pulse Pulse Pulse Pulse Pulse Pulse 03/23/19 10:56 03/23/19 10:33 36.6 C 97 H 94 H 03/23/19 08:55 79 94 H 95 H 03/23/19 08:00 65 03/23/19 07:47 36.6 C 03/23/19 07:37 03/23/19 04:38 36.6 C 03/23/19 02:44 Pulse Pulse Pulse Resp Resp Resp Resp 03/23/19 10:56 65 16 03/23/19 10:33 70 20 03/23/19 08:55 83 74 20 20 20 03/23/19 08:00 03/23/19 07:47 70 20 03/23/19 07:37 78 18 03/23/19 04:38 73 18 03/23/19 02:44 78 18 Resp Resp BP BP Pulse Ox Pulse Ox Pulse Ox 03/23/19 10:56 96 03/23/19 10:33 121/69 119/68 96 03/23/19 08:55 20 20 91 91 03/23/19 08:00 03/23/19 07:47 119/68 96 03/23/19 07:37 95 03/23/19 04:38 121/69 90 03/23/19 02:44 96 Pulse Ox Pulse Ox Pulse Ox 03/23/19 10:56 03/23/19 10:33 03/23/19 08:55 87 L 92 87 L 03/23/19 08:00 03/23/19 07:47 03/23/19 07:37 03/23/19 04:38 03/23/19 02:44 PG Care Time/CCT Total # of Minutes Spent Total Time Spent with Patient: Total time spent is greater than 50% in coordination of care (as documented) at patient's floor/unit and/or counseling patient: Coding Level of Care Code 61476 Subseq Hosp Care Lvl 3 Diagnoses Acute hypoxemic respiratory failure J96.01 Acute hypercapnic respiratory failure J96.02 COPD exacerbation J44.1 S/P aortobifemoral bypass surgery Z95.828 Postoperative ileus K91.89; K56.7 Pre-diabetes R73.03 Hypokalemia E87.6 DVT prophylaxis Z29.9
--- NOTE | 2019-03-26 10:01 | Discharge Summary ---
Date of Service March 26, 2019 Admission HPI Per Admitting Provider Mr. Beard is a 53-year-old gentleman who for the last 2 years has had claudication of his lower extremity is gotten progressively worse. He now can walk a block before he has to stop from his claudication. This starts in his calves and goes up to his thighs. If he goes uphill he can even do a block. He does have pain in his feet at night at least 3 to 4 to 5 days during the week. He denies any tissue loss or discoloration of his feet. He does smoke but at this point he is down to 1/4 pack. 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 Aorto-bifemoral bypass was recommended and pt was agreeable. Admission Exam Per Admitting Provider Physical Exam: On exam the patient is awake and oriented x3. He is in no apparent distress. His blood pressure is 106/68 on the left 100/64 on the right. Head neck within normal limits he has no carotid bruits. Lungs are clear heart irregular rate and rhythm. Abdominal exam is benign. Radials carotids and superficial temporal arteries are +2 bilaterally. I cannot appreciate pulses in the lower extremity femorals downward. Neurologic exam is grossly intact. He does have normal capillary refill in his feet. Principal Diagnosis 1. s/p aortobifemoral bypass 2. Fluid overload/ CHF - resolving 3.Pneumonia - resolving 4. post op ileus - resolved 5. Acute kidney injury - resolved Discharge Exam Constitutional WD/WN, vitals as above comfortable Respiratory no labored breathing Auscultation: + diminished lung sounds Cardiovascular Rate/Rhythm: regular rate and regular rhythm Vessels: femoral pulses present, brachial pulses present and radial pulses present; + abnormal peripheral pulses (+2 BLE distal pulses. ) Extremities: normal capillary refill and + edema Gastrointestinal (Abdomen) Inspection/Auscultation: + abdomen distended (less than yesterday. Incision C/D/I) and normal bowel sounds Percussion/Palpation: + abdomen tender and abdomen soft Musculoskeletal Extremities: strength 5/5 throughout Skin + incision (C/D/I, tender, minimal serous drainage); no erythema Neurologic moves all extremities and awake; no focal motor deficits and not confused Psychiatric Orientation: alert and oriented x 3 Affect: euthymic affect Discharge Data Allergies Allergy/AdvReac Type Severity Reaction Status Date / Time No Known Allergies Allergy Verified 03/14/19 06:29 Consultations 03/14/19 15:34 Consult Senior Manufacturing Engineer Routine 03/19/19 09:04 Consult Hospitalist Routine 03/22/19 12:03 [facility] COPD/Pnx Program Referral Routine Procedures Performed Operation Date: 03/14/19 07:30 Actual Procedures p Aortobifemoral Bypass(Bilateral) - Jose aRymond MD Hospital Course (1) S/P aortobifemoral bypass surgery: Pt BLE perfusion doing well, pain controlled. D/C home today with services, Home O2 and nebulizer. (2) Postoperative ileus: Improved, continue stool softeners. (3) Acute renal insufficiency: Patient has a small increase in his creatinine postoperatively due to hypotension and hypovolemia. His creatinine is now returned to normal with fluids. Total Time Total Time Spent Total Time Spent (In Minutes): 0 Discharge Plan Discharge Items Patient Disposition: Home - Self-Care Reason For Visit: Aortic Occlusion Discharge Diagnosis: 1. s/p aortobifemoral bypass 2. Fluid overload/ CHF - resolving 3.Pneumonia - resolving 4. post op ileus - resolved 5. Acute kidney injury - resolved Condition on Discharge: Good Activity: Per Instructions section Non-emergency contact: Primary Care Provider and Surgeon Call non-emergency contact if: you have any medication questions, your pain is not controlled, your pain is concerning for you, your temperature is above 101, your wound has increased redness and your wound has increased drainage Follow-up/Referrals: Kp Day MD [Physician] - 03/29/19 9:45 am (Please, follow up at [facility] Pulmonology Office with Dr. Day on March 29 at 10:00 am (arrive 9:45 am). *The pharmacy is located in [address] of [facility], next to this hospital. If you need to change this appointment, call the office at [phone].) Jose Raymond MD [Physician] - 04/02/19 (Call [phone] for appt on TUESDAY, APR 02 for staple removal. ) Kelsey Schwartz PA-C [Primary Care Provider] - 02/18/20 8:10 am (Within 1 week.) Diet: Heart Healthy Addtl Attending Provider Instructions: 1. No lifting more than 10 lbs for 4 weeks. 2. May shower and dry wounds thoroughly, NO bathing. 3. No dressings required to wounds; they are dry. 4. Call [phone] for follow up appt with Dr Raymond or Nava Anthony PA-C, in 10 days. Pending Studies at Discharge: No Stand-Alone Forms: My [facility], Smoking Cessation Medications and DC Order Prescriptions: New ipratropium-albuterol 0.5 mg-3 mg(2.5 mg base)/3 mL Solution For Nebulization 3 ml NEB Q4R PRN (Reason: shortness of breath or wheezing) Qty: 30 RF: 0 levofloxacin 750 mg Tablet 750 mg PO DAILY@1100 Qty: 10 RF: 0 oxycodone-acetaminophen [Percocet] 5-325 mg Tablet 1 - 2 tab PO Q4H PRN (Reason: pain) Qty: 60 RF: 0 ferrous sulfate 325 mg (65 mg iron) Tablet,Delayed Release (Dr/Ec) 325 mg PO BIDM Qty: 60 RF: 1 docusate sodium 100 mg Capsule 100 mg PO BID Qty: 60 RF: 1 (DME) nebulizer and compressor Device See Rx Instructions .ROUTE .MEDSUPPLY Qty: 1 RF: 0 (DME) Oxygen Home Liters Per Minute See Rx Instructions .ROUTE .MEDSUPPLY Qty: 1 RF: 0 Continued cilostazol 100 mg Tablet 100 mg PO BID RF: 0 aspirin [Aspir-81] 81 mg Tablet,Delayed Release (Dr/Ec) 81 mg PO DAILY RF: 0 fluticasone propion-salmeterol [Advair Diskus] 100-50 mcg/dose Blister With Device 1 puff INHALATION BID RF: 0 albuterol sulfate 90 mcg/actuation Hfa Aerosol Inhaler 1 - 2 inh INHALATION UD PRN (Reason: ASTHMA) RF: 0 bupropion HCl (smoking deter) 150 mg Tablet Extended Release 12 Hr 150 mg PO BID RF: 0 nystatin 100,000 unit/gram powder 1 appln TOP TID Qty: 30 RF: 1 Discharge Orders: Discharge Order (Routine); Ordered 03/23/19 Ordered By: Nava Anthony Admission Data Admit Date/Time: 03/14/19 15:33 Attending Provider: Jose Raymond Admit Provider: Jose Raymond Primary Care Provider: Kelsey Schwartz Other Providers: Orlando Wright ; Fernando Infante ; Sixto Moreno ; Kp Day ; Clint Araujo ; Amos Olson ; Aditya Hankins ; [facility] ; [id number],CAPPT ; [place] ; Lorenzo Johnson ; Serena Greenwood ; Marisol Herron ; Efren Mcmahon ; Jeff Mejia ; Kelsey Rojas ; Alfred Pham ; Juarez Segovia ; Donnie Simon ; Taylor Noble ; Wanda Shannon ; Charline Nix ; Billy Prieto ; Angella Hernández ; Jonathan Deluca ; Cyrus Hooper ; Serena Wright ; Juan A Castañeda ; Alyce Khalil ; Marilyn Calderón ; Dexter Pratt ; Efren Muñoz ; Fatmata Carty ; Veronica Grayson ; Satya Duran ; Geronimo Sharma ; Peter Cortez ; Gibson Pete ; Rohit Valencia ; Tray Rees ; Dickson Ramos ; Aditi Klein Other Interventions: Discharge Summary Assessment (RN) Last Done: 03/23/19 10:33 DC Date/Time DO NOT enter until pt leaves facility: 03/23/19 12:50
== END 2019-03-23 12:50 | disposition home or self-care (01) | DRG 270 ==
LOC: ASU 06:07 → 1E 16:27 → 2S 03-17 08:42

== ENCOUNTER 2021-05-19 06:32 | Inpatient (IN) ==
--- NOTE | 2021-05-15 10:58 | Anesthesiology Consultation ---
Date of Service May 15, 2021 Assessment & Plan (1) Encounter for pre-operative examination: - Case discussed in detail with Dr. Fuchs who advised sending request to funeral greeter of any marilu-operative recommendations. Awaiting pulmonology response. - will attempt to obtain more recent heme/onc notes if available given plan to follow up recently. - pulmonology office visit 04/22/2021 [facility]: "...pmhx of COPD and carotid artery stenosis who recently had his carotid endarterectomy delayed due to a COPD exacerbation. I saw the patient a few weeks ago prior to surgery. He completed a 5 day course of prednisone and abx. He feels better today, but continues to complain of chronic dyspnea with exertion and cough. He uses Breo and Spriva at home. He also uses albuterol several times a week. He notes that he quit smoking approximately 2 weeks ago. He has an extensive smoking history...Will prescribe Trelegy for better compliance and ease of use. No evidence of exacerbation today. Repeat PFT in 4 months...Strong risk factors for sleep disordered breathing. Sleep study ordered. STOP BANG 4. ESS 13...Congratulated on smoking cessation. Encouraged to stay quit...Chronic hypoxemic respiratory failure: Oxygen walk test suggests significant desaturations with ambulation. Patient has home oxygen and POC, but does not use. Encouraged strict compliance. Recommend 3L via NC with exertion and with sleep...Secondary polycythemia: Likely secondary to chronic hypoxemia and possible KATEY. Follows with CCP..." - pulmonology consult [facility]: "...history of hypercapnic respiratory failure with MRSA recently an ABG on 03/15/2019 representing acute hypercapnic respiratory failure with a pH of 7.22 and a PCO2 of 52...Perioperative pulmonary risk assessment: He is moderate risk for perioperative pulmonary complications especially in light of the fact that he has a mild COPD exacerbation. Will defer to his surgical team and anesthesia team with regards to the need to proceed with surgery today. I did discuss my concerns with anesthesia staff. Should surgery be pursued, would recommend extubation directly to BiPAP. COPD group D with exacerbation Continue ICS/LABA/LAMA. We will prescribe a short course of prednisone for 5 days. Continue supplemental oxygen to maintain saturations above 88%. He should schedule a sleep study as previously ordered by me to evaluate for sleep disordered breathing as he is at risk for overlap syndrome of COPD and KATEY..." - anesthesia consult [facility] 04/08/2021: "...Discussed the case extensively with the patient, his and Dr. Raymond. At this time patient has very little air flow on exam and I have serious concerns about our ability to extubate at the end of the case. The patient no longer follows with a funeral greeter. My biggest question remains whether the patient is optimized from a pulmonary standpoint in order to increase our chance of a successful extubation at the end of surgery. If fully optimized, we will proceed recognizing that the patient is high risk. If not fully optimized and if pulmonary can offer additional treatments that might improve his respiratory status prior to proceeding, I would recommend optimization prior to elective surgical intervention and intubation. Stat pulmonary consult to be placed and case delayed until later today...Awaiting official consult note from funeral greeter, but per discussion with Dr. Schmitt, the patient is not optimized at this time from a pulmonary standpoint. Discussed this with Dr. Raymond and decision made to delay case to allow pulmonary optimization to decrease the likelihood of postoperative pulmonary complications..." - history of facial surgery/reconstruction: no intubation issues noted on 03/2021 bypass anesthesia record. - heme/onc office visit 03/10/2021 [facility]: "...sgnificantly elevated hemoglobin and hematocrit...COPD recently had developed COVID-19 and related hypoxia...utilizes supplemental oxygen...risk of acute myocardial infarction, and CVA is significant...phlebotomy 500 mL weekly for the next 8 weeks and reevaluate towards the end of April..." - COVID screening: Per assessment nurse practitioner on 05/14/2021: Travel screen negative, no known COVID-19 positive contacts or current COVID-19 related symptoms in past 2 weeks. Surgeon arranging preop COVID testing, scheduled 05/15/2021. Awaiting results. Pt was awaiting COVID testing at [facility] when contacted by myself, he verbalized understanding to complete COVID testing as planned today as planned. Chart Review Chart Review: Pending: Refer to Additional Notes / Consult section and Patient NOT seen in Pre Admission Testing History Surgery Operation Date: 05/19/21 08:00 Proposed Procedures p Left Carotid Endarterectomy with Patch - Jose Raymond MD Surgery re-scheduled from 04/08/2021. Height/Weight Height: 5 ft 7 in Weight: 82.554 kg Allergies Allergy/AdvReac Type Severity Reaction Status Date / Time No Known Allergies Allergy Verified 05/14/21 12:17 Medications Home Medications Medication Instructions Recorded Confirmed Last Taken albuterol sulfate 90 mcg/actuation 1 - 2 inh INHALATION UD PRN 02/15/19 05/14/21 04/08/21 06:00 aerosol inhaler aspirin 81 mg tablet,delayed 81 mg PO QAM 02/15/19 05/14/21 04/07/21 06:00 release (Aspir-) Oxygen Home #1 ea 03/23/19 04/22/21 Unknown ipratropium 0.5 mg-albuterol 3 mg 3 ml NEB Q4R PRN #30 ml 03/23/19 05/14/21 04/01/21 (2.5 mg base)/3 mL nebulization soln nebulizer and compressor #1 ea 03/23/19 04/22/21 Unknown atorvastatin 20 mg tablet 20 mg PO HS 03/31/21 05/14/21 04/06/21 fluticasone fur. 100 mcg-umeclid 1 inh INHALATION QAM 05/14/21 05/14/21 Unknown 62.5 mcg-vilant 25 mcg inhalat.powder (Trelegy Ellipta) Past Medical History Medical History (Updated 05/15/21 @ 10:48 by Luz Adorno PA-C) Aortic stenosis Moderate per 03/31/21 ECHO Asthma follows with PADMINI mccloud, on Trelegy Chronic bronchitis Chronic hypoxemic respiratory failure to use 3L O2 with exertion and HS, pt states only using HS COPD (chronic obstructive pulmonary disease) follows with Dr. Day--started on trelegy inhaler qam--pt states he feels breathing has improved, denies new or worsened symptoms since pulmonology consult, admits only using supplemental O2 at night COPD exacerbation Pt reports no exacerbation since prior to pulm consult 04/22/21 Hyperlipidemia On home oxygen therapy 3L with exertion and HS advised by pulm, pt states only using HS Pre-diabetes NO MEDS Pulmonary hypertension mild per 03/2021 echo report PVD (peripheral vascular disease) Secondary polycythemia F/U DR SHAVER-HAVING PHLEBOTOMY 1 X A WEEK X 8 Per 03/10/21 heme note- feel secondary polycythemia attributable to chronic pulmonary disease and cigarette smoking, additional suspicion for possible KATEY per pulm Snores POSSIBLY DX WITH SLEEP APNEA "WHEN I WAS A CHILD" - NO DEVICE, pulm ordered updated sleep study 04/2021 SOB (shortness of breath) on exertion Suspected 2018 novel coronavirus infection 2 1/2 MONTHS AGO PT WAS IN CONTACT WITH CO-WORKER WHO TESTED POS FOR COVID-PT WAS NEVER TESTED/1-2 DAYS AFTER CONTACT DEVELOPED SYMPTOMS OF FEVER, COUGH, BODY ACHES, LOSS TASTE AND SMELL-RECOVERED AT HOME-PT SEEMS TO BE BACK TO HIS NORMAL STATE Tobacco abuse counseling Witnessed apneic spells Past Family History Family History Brother Family history of diabetes mellitus Brother Family history of diabetes mellitus Sister Family history of diabetes mellitus Grandmother Family history of diabetes mellitus Mother Family history of cancer Past Surgical History Surgical History History of plastic surgery FACIAL RECONSTRUCTION/DENIES LIMITED ROM WITH JAW History of surgery on extremity L LEG/HARDWARE S/P aortobifemoral bypass surgery 03/14/2019: Grade 1 view, MAC#3, ETT#8.0 x 1 atraumatic. Status post epidural steroid injection HX EPIDURAL STEROID 10 YR AGO Social History Smoking Status: Light tobacco smoker tobacco type: cigarettes Smoking cigarettes per day: "10 cigarettes a week" (advised) Do You Dip or Chew Tobacco: No Hx Alcohol Use: No Hx Substance Use: No substance use type: marijuana Last Used Substance Other:: > 1 MONTH "NOT A HEAVY SMOKER AT ALL" Lab Results Anesthesia Preop Results Results Anesthesia Widget: 2 WBC 6.68 K/uL (4.8-10.8) 05/04/21 Hgb 16.3 g/dL (14.0-18.0) 05/04/21 Hct 48.0 % (42-52) 05/04/21 Plt 209 K/uL (130-400) 05/04/21 Na 140 mmol/L (136-145) 04/06/21 K 3.7 mmol/L (3.5-5.1) 04/06/21 Cl 102 mmol/L (98-107) 04/06/21 CO2 30 mmol/L (21-32) 04/06/21 BUN 17 mg/dl (6-23) 04/06/21 Creat 0.88 mg/dl (0.6-1.4) 04/06/21 Glucose Level 124 mg/dl (70-99(Fasting)) H 04/06/21 POC Glucose 100 mg/dl (70-99) H 04/08/21 PT 9.9 Seconds (9.0-12.0) 04/06/21 PTT 28.8 Seconds (21.0-31.0) 04/06/21 INR 1.0 (0.9-1.1) 04/06/21 Blood Type O Positive 04/06/21 Antibody Screen NEGATIVE 04/06/21 Testing Electrocardiogram Date: 04/06/21 Poor data quality NSR, rate [address] and T wave abnormality Chest X-Ray Date: 04/06/21 Frontal and lateral radiographs of the chest demonstrate the cardiomediastinal silhouette to be within normal limits. The lungs are hyperinflated with flatteni ng of the hemidiaphragms and increase in the retrosternal space characteristic of underlying chronic obstructive pulmonary disease. Linear scarring is present in the right midlung. The lungs are clear of alveolar opacities. There is no evidence for effusion bilaterally. There is no evidence for vascular congestion. There is no acute osseous pathology. IMPRESSION: 1. No acute cardiopulmonary disease. Underlying COPD and linear scarring. Echocardiogram Date: 03/31/21 EF: 65% LV Function: normal RWMA: + none Other Findings: no LVH Heavily calcified tricuspid aortic valve. Moderate aortic stenosis (AV peak velocity 3.42m/s; AV mean gradient 24.2mmHg; KALLIE 1.4-1.7cm2) Mild pulmonary hypertension (PASP is 40 mmHg). Stress Test Date: 01/30/19 Type: nuclear Resting EF: 65% Resting LV Function: normal Resting RWMA: + none Negative dobutamine stress echocardiogram for ischemia at 89% MPHR. Negative stress EKG for ischemia at 89% MPHR. Pulmonary Function Test Date: 03/29/19 Severe obstructive defect Significant air-trapping and hyper-inflated noted [sic] DLCO is severely reduced
[~2021-05-19 06:32] MED LIST changes: -SODIUM CHLORIDE 0.9% 250 ML IV PRN
[2021-05-19] MEDS ORDERED: fentaNYL citrate 100 MCG/2 ML VIAL ONE ×2 (06:42→09:17)
[2021-05-19] MEDS ORDERED: MIDAZOLAM HCL 1 MG/ML 2ML VIAL ONE (06:42)
[2021-05-19] MEDS ORDERED: NITROGLYCERIN 5 MG/ML 10 ML VIAL ONE (07:00)
[2021-05-19] MEDS ORDERED: ROCURONIUM BROMIDE 10 MG/ML 5 ML VIAL IV ONE (07:02)
[2021-05-19] MEDS ORDERED: LARYING-O-JET KIT (LTA) ONE (07:02)
[2021-05-19] MEDS ORDERED: PROPOFOL IV EMULSION 10 MG/ML 20 ML VIAL IV ONE (07:02)
[2021-05-19] MEDS ORDERED: PHENYLEPHRINE HCL 10 MG/ML VIAL ONE (07:02)
[2021-05-19] MEDS ORDERED: ONDANSETRON INJ 2 MG/ML 2 ML VIAL ONE (07:02)
[2021-05-19] MEDS ORDERED: DEXAMETHASONE SOD INJ 4 MG/ML VIAL ONE (07:02)
[2021-05-19] MEDS ORDERED: LIDOCAINE 2% 2 ML VIAL/AMP(20MG/ML) INFIL ONE (07:02)
[2021-05-19] MEDS ORDERED: ATROPINE SULFATE 0.1 MG/ML 10ML SYR IV PRN (07:18)
[2021-05-19] MEDS ORDERED: fentaNYL citrate 100 MCG/2 ML VIAL IV PRN (07:18)
[2021-05-19] MEDS ORDERED: LABETALOL HCL IV 5 MG/ML 20ML IV PRN (07:18)
[2021-05-19] MEDS ORDERED: ONDANSETRON INJ 2 MG/ML 2 ML VIAL IV PRN (07:18)
[2021-05-19] MEDS ORDERED: KETOROLAC 30 MG/ML VIAL IV PRN (07:18)
[2021-05-19] MEDS ORDERED: HEPARIN (PORCINE) 1000 UNIT/ML 10 ML (CATH LAB USE ONLY) ONE (07:21)
[2021-05-19] MEDS ORDERED: GELATIN SPONGE SZ 100 ONE (07:21)
[2021-05-19] MEDS ORDERED: THROMBIN FOR SOLN 20000 UNIT KIT ONE (07:21)
[2021-05-19] MEDS ORDERED: LIDOCAINE 1% LOCAL 20 ML VIAL ONE (07:21)
[2021-05-19] MEDS ORDERED: ceFAZolin 330 MG/ML 1 GM VIAL ONE ×2 (07:21→11:57)
[2021-05-19] MEDS ORDERED: BUPIVACAINE 0.5 % 5 MG/1 ML MPF 30ML VIAL ONE (07:22)
[2021-05-19] MEDS ORDERED: EPINEPHrine INJ 1 MG/ML AMP ONE ×2 (07:22→07:48)
[2021-05-19] MEDS ORDERED: ALBUTEROL 0.083% NEBU SOLN 3 ML VIAL ONE (07:24)
[2021-05-19] MEDS ORDERED: ALBUTEROL 0.083% NEBU SOLN 3 ML VIAL NEB STA ×2 (07:25→07:54)
--- NOTE | 2021-05-19 07:39 | History & Physical Report ---
Date of Service May 19, 2021 Assessment & Plan (1) Stenosis of left internal carotid artery: Plan: Patient for left CEA today. I have discussed the risks options and benefits of the procedure with the patient. The patient understands the risks options and benefits and agrees to the procedure. History of Present Illness Chief Complaint: Left internal carotid artery stenosis Primary Care Provider: Kelsey Schwartz PA-C This is [id number] gentleman who we had done an aortobifemoral bypass on in the past. He was seen in the his PCP office and found to have a carotid bruit which showed an 80 to 99% narrowing of his left internal carotid artery. He denies any symptoms of cerebrovascular insufficiency at this point. He denies any claudication. He has never had a stroke in the past. CTA confirmed a severe left carotid stenosis. Allergies Allergy/AdvReac Type Severity Reaction Status Date / Time No Known Allergies Allergy Verified 05/19/21 07:10 Home Medications Medication Instructions Recorded Confirmed Type albuterol sulfate 90 mcg/actuation 1 - 2 inh INHALATION UD PRN 02/15/19 05/14/21 History aerosol inhaler aspirin 81 mg tablet,delayed 81 mg PO QAM 02/15/19 05/14/21 History release (Aspir-) Oxygen Home #1 ea 03/23/19 04/22/21 Rx ipratropium 0.5 mg-albuterol 3 mg 3 ml NEB Q4R PRN #30 ml 03/23/19 05/14/21 Rx (2.5 mg base)/3 mL nebulization soln nebulizer and compressor #1 ea 03/23/19 04/22/21 Rx atorvastatin 20 mg tablet 20 mg PO HS 03/31/21 05/14/21 History fluticasone fur. 100 mcg-umeclid 1 inh INHALATION QAM 05/14/21 05/14/21 History 62.5 mcg-vilant 25 mcg inhalat.powder (Trelegy Ellipta) tiotropium bromide 18 mcg capsule 1 cap INHALATION DAILY 05/19/21 05/19/21 History with inhalation device (Spiriva with HandiHaler) Past Med/Surg History Medical History Aortic stenosis Moderate per 03/31/21 ECHO Asthma follows with [facility] pulm, on Trelegy Chronic bronchitis Chronic hypoxemic respiratory failure to use 3L O2 with exertion and HS, pt states only using HS COPD (chronic obstructive pulmonary disease) follows with Dr. Day--started on trelegy inhaler qam--pt states he feels breathing has improved, denies new or worsened symptoms since pulmonology consult, admits only using supplemental O2 at night COPD exacerbation Pt reports no exacerbation since prior to pulm consult 04/22/21 Hyperlipidemia On home oxygen therapy 3L with exertion and HS advised by pulm, pt states only using HS Pre-diabetes NO MEDS Pulmonary hypertension mild per 03/2021 echo report PVD (peripheral vascular disease) Secondary polycythemia F/U DR SHAVER-HAVING PHLEBOTOMY 1 X A WEEK X 8 Per 03/10/21 heme note- feel secondary polycythemia attributable to chronic pulmonary disease and cigarette smoking, additional suspicion for possible KATEY per pulm Snores POSSIBLY DX WITH SLEEP APNEA "WHEN I WAS A CHILD" - NO DEVICE, pulm ordered updated sleep study 04/2021 SOB (shortness of breath) on exertion Suspected 2019 novel coronavirus infection 2 1/2 MONTHS AGO PT WAS IN CONTACT WITH CO-WORKER WHO TESTED POS FOR COVID-PT WAS NEVER TESTED/1-2 DAYS AFTER CONTACT DEVELOPED SYMPTOMS OF FEVER, COUGH, BODY ACHES, LOSS TASTE AND SMELL-RECOVERED AT HOME-PT SEEMS TO BE BACK TO HIS NORMAL STATE Tobacco abuse counseling Witnessed apneic spells Surgical History History of plastic surgery FACIAL RECONSTRUCTION/DENIES LIMITED ROM WITH JAW History of surgery on extremity L LEG/HARDWARE S/P aortobifemoral bypass surgery 03/14/2019: Grade 1 view, MAC#3, ETT#8.0 x 1 atraumatic. Status post epidural steroid injection HX EPIDURAL STEROID 10 YR AGO Family History Brother Family history of diabetes mellitus Brother Family history of diabetes mellitus Sister Family history of diabetes mellitus Grandmother Family history of diabetes mellitus Mother Family history of cancer Social History Smoking Status: Light tobacco smoker Cigarettes Per Day: "10 cigarettes a week" (advised); Second Hand Exposure: No; Do You Dip or Chew Tobacco: No; Tobacco Cessation Education Requested by Patient: No Hx Alcohol Use: No Hx Substance Use: No Preferred Language: Pashto Communication Ability: Effective Esthetician Facialist Required: No Beliefs That Will Affect Care: None Current Living Situation: Spouse current occupational status: employed current occupation: [employer] Other Information That Helps Us Care for You: No Feels Safe at Home: Yes Safety Concerns: Feels Safe At This Time Assistive Devices: Denture - Upper and Glasses Review of Systems All systems reviewed & are unremarkable except as noted in HPI & below + dyspnea Physical Exam Physical Exam: This patient is awake alert and oriented x3. He is in no apparent distress. His blood pressure is 126/84 in the left 140/90 on the right. He does have a left carotid bruit. His radials carotids supratemporal's are +2 bilaterally. Lungs have distant breath sounds but clear. Heart had a regular rate and rhythm. Abdominal exam is benign. His femoral pulses are +2 bilaterally. He has good capillary refill in both feet. Neurologic exam is intact to motor and sensory function. Results & Data ([facility]) Vital Signs (Past 12 Hours) Vital Signs Temp Pulse Resp BP BP Pulse Ox 05/19/21 07:04 36.9 C 85 22 126/68 131/75 91
[2021-05-19] MEDS ORDERED: ceFAZolin 2,000 MG/15 ML IV PUSH IV ONE (07:46)
[2021-05-19] MEDS ORDERED: ETOMIDATE 2 MG/ML 20 ML VIAL IV ONE (08:12)
[2021-05-19] MEDS ORDERED: ALBUTEROL HFA INHALER 8.5 GM ONE (08:48)
[2021-05-19] MEDS ORDERED: ePHEDrine sulfate 50 MG/ML AMP ONE (09:31)
[2021-05-19] MEDS ORDERED: HEPARIN SOD (PORCINE) 1000 UNIT/ML ONE (09:48)
[2021-05-19] MEDS ORDERED: NEOSTIGMINE METHYLSULFATE 1 MG/ML 10ML VIAL ONE (12:04)
[2021-05-19] MEDS ORDERED: GLYCOPYRROLATE 0.2 MG/ML VIAL ONE (12:04)
[2021-05-19] MEDS ORDERED: MoRPHine SULFATE 4 MG/ML 1 ML CARP\\VIAL IV PRN (12:07)
--- NOTE | 2021-05-19 12:07 | Post Operative Brief Note ---
Immediate Post Op Note v1 Date of Surgery May 19, 2021 Pre & Post Diagnosis Operation Date: 05/19/21 08:00 Pre-Op Diagnosis: Stenosis of left internal carotid artery Post-Op Diagnosis: Stenosis of left internal carotid artery I identified the patient and participated in the time-out.: Yes Procedure Operation Date: 05/19/21 08:00 Actual Procedures p Left Carotid Endarterectomy with Patch(Left) - Jose Raymond MD Surgeon Jose Raymond MD Manager [employer] MD Charu L.Minarchick,PAC Estimated Blood Loss 100 Findings Consistent with Post-Op Diagnosis Anesthesia Type General Complications none Disposition Accompanied Patient To Recovery: No Disposition: Recovery Room
[2021-05-19] MEDS ORDERED: ALBUTEROL HFA 8 GM INHALER INH PRN (12:08)
[2021-05-19] MEDS ORDERED: ALBUT/IPRATROP 3MG/0.5MG NEB 3 ML VIAL NEB PRN (12:08)
--- NOTE | 2021-05-19 12:11 | Operative Report ---
Post Operative Report Pre & Post Diagnosis Operation Date: 05/19/21 08:00 Pre-Op Diagnosis: Stenosis of left internal carotid artery Post-Op Diagnosis: Stenosis of left internal carotid artery I identified the patient and participated in the time-out.: Yes Procedure Operation Date: 05/19/21 08:00 Actual Procedures p Left Carotid Endarterectomy with Patch(Left) - Jose Raymond MD Surgeon Jose Raymond MD Tuft Machine Operator MD Lonny Box,PAC Estimated Blood Loss 100 Findings Consistent with Post-Op Diagnosis Specimens left carotid plaque Anesthesia Type General Complications none immediate Disposition Accompanied Patient To Recovery: No Disposition: Recovery Room Indications This is [id number] gentleman who we had done an aortobifemoral bypass on in the past. He was seen in the his PCP office and found to have a carotid bruit which showed an 80 to 99% narrowing of his left internal carotid artery. He denies any symptoms of cerebrovascular insufficiency at this point. He denies any claudication. He has never had a stroke in the past. CTA confirmed a severe left carotid stenosis.He presents for left carotid endarterectomy. Description of Procedure The patient was taken to the operating room and placed in supine position. After general anesthesia was accomplished the left-side of the neck was prepped and draped in a sterile manner. A team timeout was performed.A longitudinal neck incision was then made coursing along the medial border of the sternocleidomastoid muscle. The incision was taken down through the platysmal layer. The facial vein was identified, ligated, and divided. There were several enlarged lymph nodes that were directly in the surgical field superior to the course of the carotid. These were soft. Four lymph nodes were excised to allow for adequate exposure of the carotid artery. The carotid artery was quite deep in the neck. The common carotid artery was then seen. It was dissected free down to the omohyoid muscle. The dissection was carried upward until the external carotid artery and superior thyroid artery was seen. About 1cm distal to superior thyroid artery an additional small branch off the external carotid artery was visualized. The superior thyroid artery and the additional branch off the external carotid artery were slung with 2-0 silk sutures. The external carotid was slung with a red rubber vessel loop. Next the dissection was carried up along the internal carotid artery. This was carried upward to beyond the area of narrowing. This took us quite high in the neck. The hypoglossal nerve was seen and preserved. The patient was heparinized. After adequate heparinization was accomplished, the internal, external, and common carotid arteries were clamped. A longitudinal arteriotomy was started on the common carotid artery and extended upward along the internal carotid artery to a point beyond the area of narrowing. There was calcified plaque of the internal carotid artery origin causing approximately 85-90% narrowing. An external sundt shunt was then placed in the internal, followed by the common carotid artery and held in place with Ag clamps. There was good back bleeding seen from the internal carotid artery. The endarterectomy was then started in the appropriate plane on the common carotid artery. This was carried upward and the external carotid was everted and endarterectomized. The endarterectomy was then carried up along the internal carotid artery. Unfortunately the plaque continued into the exposed area of internal carotid. We dissected out a little higher but ultimately in order to get above the bulk of the plaque and find a good site to transect the remaining plaque the shunt ultimately needed to be removed. The rest of the operation was performed without shunt. The shelf of the plaque was tacked with three 6-0 prolene tacking sutures in the distal internal carotid artery. The endarterectomy was then carried down further on the common carotid artery. At end of the arteriotomy, the plaque was then transected. Under loop magnification, all loose debris and flaps were removed. There was no distal flap seen at the end of the endarterectomy site. The arteriotomy then closed using a bovine pericardial patch and a running 6-0 prolene suture. This was done in the usual vascular fashion. Prior to completing the closure backbleeding and forward bleeding was allowed to occur. The flow surface was irrigated with heparinized saline. The final few sutures were then placed and securely tied. Clamps were then removed off the external and common carotid arteries. The clamp was then removed the internal carotid artery. Good distal flow was seen. A few 6-0 repair sutures were needed along the patch and after these were placed, adequate hemostasis was seen of the patch. There was an injury to the second branch off the external carotid artery so this was closed with 6-0 prolene suture. The wound was inspected and adequate hemostasis was obtained. The wound was irrigated with antibiotic solution. It was then closed with a running 3-0 Vicryl suture for the platysmal layer and a 4-0 subcuticular Vicryl suture for the skin edges. Dermabond was used for dressing. The patient left the operating room in satisfactory condition and tolerated the procedure well. Dr. Raymond was present and scrubbed for the duration of the procedure. I attest to the content of the Intraoperative Record and any orders documented therein. Any exceptions are noted below.
--- NOTE | 2021-05-19 13:52 | Anesthesiology Progress Note ---
Date of Service May 19, 2021 Anesthesia Post Procedure Vital Signs Vital Signs: Temp Pulse Pulse Resp BP BP Pulse Ox 05/19/21 13:25 91 H 18 127/80 93 05/19/21 13:15 36.4 C L 89 18 113/93 93 05/19/21 13:05 92 H 18 149/84 H 96 05/19/21 12:55 93 H 17 118/77 95 05/19/21 12:47 36.0 C L 97 H 22 148/95 H 98 05/19/21 07:25 75 17 92 05/19/21 07:04 36.9 C 85 22 126/68 131/75 91 Transfer of Care Handoff Completed per policy Notes Mental Status: alert / awake / arousable Patient Amnestic to Procedure: Yes Nausea / Vomiting: adequately controlled Pain: adequately controlled Airway Patency, RR, SpO2: stable & adequate BP & HR: stable & adequate Hydration State: stable & adequate Anesthetic Complications: no major complications apparent
--- NOTE | 2021-05-19 13:59 | Anesthesia Procedure Note ---
Anesthesia Procedure Note Arterial Line Note Date of procedure: 05/19/21 Consent: Risk / Benefits Reviewed With: Informed Consent Obtained Monitors attached: Blood Pressure, CO2, EKG and Pulse Oximetry Oxygen delivery method: ETT Time out completed: Yes Premedication: General anesthesia Laterality: Right Location: Radial Skin prep: Chloraprep Ultrasound used: No Attempts: 1 Procedure Summary: 20 g arrow to locate radial artery, wired in without problem - good waveform, no hematoma Post-Procedure: Pt hemodynamically stable and No complication
[2021-05-19] MEDS: oxyCODONE/ACETAMINOPHEN 5mg/325mg TAB PO PRN ×2 (14:02→23:00)
--- NOTE | 2021-05-19 14:10 | Critical Care Consultation ---
Date of Consultation May 19, 2021 Assessment & Plan (1) Stenosis of left internal carotid artery: (2) COPD (chronic obstructive pulmonary disease): (3) Chronic hypoxemic respiratory failure: 55-year-old male past medical history of COPD, chronic hypoxic respiratory, peripheral vascular disease in the ICU s/p carotid endarterectomy done 05/19/2021 --Left carotid artery stenosis S/p left carotid endarterectomy Monitor H&H Monitor for focal neurological deficit Neuro checks every 4 hours --Severe COPD Gold class D On trilogy at home Continue with same regimen follows up with Dr. Day as an outpatient PFT 03/2019, FEV1 32% predicted, DLCO 31%, RV to 40%, RV/TLC 25% --Peripheral vascular disease Continue with statin Resume Plavix tomorrow --Chronic hypoxic respiratory failure On 2 and half l oxygen at home Is noncompliant with it during the day Continue with oxygen to keep O2 saturation between 88-92% --Probable KATEY Patient is supposed to have polysomnography in June BiPAP nightly and as needed shortness of breath --Polycythemia Likely secondary as the patient is not using oxygen during the day --Prophylaxis VTE: IPC GI: Pantoprazole Lines: Right radial, peripheral Diet: Cardiac Plan: Continue with neurochecks Monitor H&H O2 supplementation to keep oxygen between 88-92%, do not overextended the patient Change patient's Trelegy to Breo and Incruse. Start the patient on duo nebs If the patient still continues to wheeze significantly and/or complaints of shortness of breath we will start the patient on Solu-Medrol Incentive spirometer will be beneficial I have personally spent 46 minutes of critical care time in the direct management of this patient. This is a life/limb threatening event. This includes time spent evaluating patient, direct bedside care, chart review, placing orders, interpretation of diagnostic studies, discussion with consultants, patient, and family members, as well as other required patient management activities. This time is exclusive of all separately billable procedures, and teaching time and separate from and in addition to any other critical care service time. Please note the above document was generated using voice recognition software. It may contain grammatical, syntax or spelling errors. History of Present Illness Attending Physician: Jose Raymond MD History of Present Illness 55-year-old male admitted to the hospital s/p carotid endarterectomy Past medical history: Severe COPD, Severe disease s/p aorto bifemoral bypass March 2019 Patient follows up with Dr. Day as an outpatient, PFT 03/2019, FEV1 32% predicted, DLCO 31%, RV to 40%, RV/TLC 25% Patient is in the ICU for post wound care Patient's was in the room during interrogation He was saturating 91-92% on 6 L oxygen mask. I went down to 5 L. He was still able to maintain his saturation 90% Blood pressure on the arterial line was in the 110s. Denied any headache, no nausea vomiting Did complain of soreness in the left incision site. Able to move all his extremities. No focal deficit Denied any shortness of breath No headache, no blurry vision. Social history: [id number] smoking history, quit 3 weeks ago Allergies Allergy/AdvReac Type Severity Reaction Status Date / Time No Known Allergies Allergy Verified 05/19/21 07:10 Home Medications Medication Instructions Recorded Confirmed Type albuterol sulfate 90 mcg/actuation 1 - 2 inh INHALATION UD PRN 02/15/19 05/19/21 History aerosol inhaler aspirin 81 mg tablet,delayed 81 mg PO QAM 02/15/19 05/19/21 History release (Aspir-) Oxygen Home #1 ea 03/23/19 04/22/21 Rx ipratropium 0.5 mg-albuterol 3 mg 3 ml NEB Q4R PRN #30 ml 03/23/19 05/19/21 Rx (2.5 mg base)/3 mL nebulization soln nebulizer and compressor #1 ea 03/23/19 04/22/21 Rx atorvastatin 20 mg tablet 20 mg PO HS 03/31/21 05/19/21 History fluticasone fur. 100 mcg-umeclid 1 inh INHALATION QAM 05/14/21 05/19/21 History 62.5 mcg-vilant 25 mcg inhalat.powder (Trelegy Ellipta) tiotropium bromide 18 mcg capsule 1 cap INHALATION DAILY 05/19/21 05/19/21 History with inhalation device (Spiriva with HandiHaler) Patient History Medical History Aortic stenosis Moderate per 03/31/21 ECHO Asthma follows with [facility] pulm, on Trelegy Chronic bronchitis Chronic hypoxemic respiratory failure to use 3L O2 with exertion and HS, pt states only using HS COPD (chronic obstructive pulmonary disease) follows with Dr. Day--started on trelegy inhaler qam--pt states he feels breathing has improved, denies new or worsened symptoms since pulmonology consult, admits only using supplemental O2 at night COPD exacerbation Pt reports no exacerbation since prior to pulm consult 04/22/21 Hyperlipidemia On home oxygen therapy 3L with exertion and HS advised by pulm, pt states only using HS Pre-diabetes NO MEDS Pulmonary hypertension mild per 03/2021 echo report PVD (peripheral vascular disease) Secondary polycythemia F/U DR SHAVER-HAVING PHLEBOTOMY 1 X A WEEK X 8 Per 03/10/21 heme note- feel secondary polycythemia attributable to chronic pulmonary disease and cigarette smoking, additional suspicion for possible KATEY per pulm Snores POSSIBLY DX WITH SLEEP APNEA "WHEN I WAS A CHILD" - NO DEVICE, pulm ordered updated sleep study 04/2021 SOB (shortness of breath) on exertion Suspected 2019 novel coronavirus infection 2 1/2 MONTHS AGO PT WAS IN CONTACT WITH CO-WORKER WHO TESTED POS FOR COVID-PT WAS NEVER TESTED/1-2 DAYS AFTER CONTACT DEVELOPED SYMPTOMS OF FEVER, COUGH, B GENESIS ACHES, LOSS TASTE AND SMELL-RECOVERED AT HOME-PT SEEMS TO BE BACK TO HIS NORMAL STATE Tobacco abuse counseling Witnessed apneic spells Surgical History History of plastic surgery FACIAL RECONSTRUCTION/DENIES LIMITED ROM WITH JAW History of surgery on extremity L LEG/HARDWARE S/P aortobifemoral bypass surgery 03/14/2019: Grade 1 view, MAC#3, ETT#8.0 x 1 atraumatic. Status post epidural steroid injection HX EPIDURAL STEROID 10 YR AGO Family History Brother Family history of diabetes mellitus Brother Family history of diabetes mellitus Sister Family history of diabetes mellitus Grandmother Family history of diabetes mellitus Mother Family history of cancer Social History Smoking Status: Light tobacco smoker Cigarettes Per Day: "10 cigarettes a week" (advised); Second Hand Exposure: No; Do You Dip or Chew Tobacco: No; Tobacco Cessation Education Requested by Patient: No Hx Alcohol Use: No Hx Substance Use: No Preferred Language: Malay Communication Ability: Effective Study Director Required: No Beliefs That Will Affect Care: None Current Living Situation: Spouse current occupational status: employed 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 [employer] Other Information That Helps Us Care for You: No Feels Safe at Home: Yes Safety Concerns: Feels Safe At This Time Assistive Devices: Denture - Upper and Glasses Review of Systems Review of Systems: All systems reviewed & are unremarkable except as noted in HPI & below Physical Exam Physical Exam: Constitutional: No acute distress HEENT: EOMI, PERRLA, left neck incision in place Respiratory system: Decreased air entry bilaterally, no rhonchi, mild crackles bilateral lower lobes, positive wheeze CVS: S1-S2 positive, no murmurs or gallops Abdomen: Soft, nontender, nondistended, positive bowel sounds x4 Extremities: +2 pulses bilaterally radialis/ dorsalis pedis, no cyanosis, no edema Neuro: Awake alert oriented x3, cranial nerves 2-12 grossly intact Psych: Normal mood and affect G/U: Positive Maria Skin: no rashes, warm and dry Lymphatic: no cervical or axillary lymphadenopathy Results & Data Results & Data ([facility]) Vital Signs (Past 12 Hours) Vital Signs Temp Pulse Pulse Resp BP BP Pulse Ox 05/19/21 13:25 91 H 18 127/80 93 05/19/21 13:15 36.4 C L 89 18 113/93 93 05/19/21 13:05 92 H 18 149/84 H 96 05/19/21 12:55 93 H 17 118/77 95 05/19/21 12:47 36.0 C L 97 H 22 148/95 H 98 05/19/21 07:25 75 17 92 05/19/21 07:04 36.9 C 85 22 126/68 131/75 91 Coding Level of Care Code Critical Care 1st 30-74 mins Diagnoses Stenosis of left internal carotid artery I65.22 COPD (chronic obstructive pulmonary disease) J41.0 COPD type: chronic bronchitis Chronic bronchitis type: simple Chronic hypoxemic respiratory failure J96.11 Time Spent (min) 46 (1) COPD (chronic obstructive pulmonary disease) COPD type: chronic bronchitis Chronic bronchitis type: simple Qualified Code(s): J41.0 - Simple chronic bronchitis
[2021-05-19] MEDS: LACTATED RINGER'S 1,000 ML IV SCH ×2 (14:36→20:37)
[2021-05-19 14:59] LABS: Basophils # (auto) 0.02 K/uL (0-0.2); Basophils % (auto) 0.1 %; Hematocrit (blood only) 41.7 % (42-52); Hemoglobin 14.2 g/dL (14.0-18.0); Immature Granulocytes # (auto) 0.07 K/uL (0.00-0.02); Immature Granulocytes % (auto) 0.4 %; Lymphocytes # (auto) 0.46 K/uL (1.2-3.4); Lymphocytes % (auto) 2.5 %; Mean Corpuscular Hemoglobin 33.5 pg (25-34); Mean Corpuscular Hgb Conc 34.1 g/dL (32-36); Mean Corpuscular Volume 98.3 fL (80-100); Mean Platelet Volume 9.8 fL (7.4-10.4); Monocytes # (auto) 0.24 K/uL (0.11-0.59); Monocytes % (auto) 1.3 %; Neutrophils # (auto) 17.41 K/uL (1.4-6.5); Neutrophils % (auto) 95.7 %; Platelet Count 230 K/uL (130-400); RDW Coefficient of Variation 13.2 % (11.5-14.5); RDW Standard Deviation 47.4 fL (36.4-46.3); Red Blood Count 4.24 M/uL (4.7-6.1)
[2021-05-19] MEDS: ALBUT/IPRATROP 3MG/0.5MG NEB 3 ML VIAL NEB SCH ×2 (15:39→23:09)
[2021-05-19 15:45] LABS: Albumin Globulin Ratio 1.3 (0.9-2); Albumin Level 3.9 gm/dl (3.4-5.0); BUN Creatinine Ratio 22.8 (10-20); Bilirubin,Total 0.3 mg/dl (0.2-1.0); Calcium 8.5 mg/dl (8.5-10.1); Creatinine Clr Calc Pharmacy 96.6 ml/min; Est GFR (African American) 108.9 ml/min; Globulin 2.9 gm/dl (2.5-4.0); Potassium 4.7 mmol/L (3.5-5.1); Total Protein 6.8 gm/dl (6.0-8.3)
--- NOTE | 2021-05-19 15:45 | XRay Report ---
XR chest 1V portable CLINICAL HISTORY: f/u TECHNIQUE: Single frontal radiograph of the chest was obtained. Comparison: Comparison is made to chest 2 views 03/29/2021 FINDINGS: No lines and tubes are seen. The cardiomediastinal silhouette is normal. Atelectasis versus scarring is seen in the right midlung. No evidence of pleural effusion or pneumothorax. IMPRESSION: No acute chest disease. ACT 112: Negative or not required by law. Electronically signed by: Donnie Ochoa M.D. 05/19/2021 3:44 PM
[2021-05-19] MEDS ORDERED: ceFAZolin 2000MG 2,000 MG/15 ML SYR IV SCH (16:00)
[2021-05-19] MEDS: FLUTICASONE/VILANTEROL 200/25MCG 14 PUFFS/INHALER INH SCH (16:10)
[2021-05-19] MEDS: ceFAZolin 2000MG 2,000 MG/15 ML SYR IV SCH (16:10)
[2021-05-19] MEDS ORDERED: ATORVASTATIN 20 MG TAB PO SCH (21:00)
[2021-05-20] MEDS: ceFAZolin 2000MG 2,000 MG/15 ML SYR IV SCH (00:27)
[2021-05-20 05:18] LABS: Basophils # (auto) 0.01 K/uL (0-0.2); Basophils % (auto) 0.1 %; Hematocrit (blood only) 39.8 % (42-52); Hemoglobin 13.2 g/dL (14.0-18.0); Immature Granulocytes # (auto) 0.03 K/uL (0.00-0.02); Immature Granulocytes % (auto) 0.2 %; Lymphocytes # (auto) 1.44 K/uL (1.2-3.4); Lymphocytes % (auto) 10.4 %; Mean Corpuscular Hemoglobin 32.6 pg (25-34); Mean Corpuscular Hgb Conc 33.2 g/dL (32-36); Mean Corpuscular Volume 98.3 fL (80-100); Mean Platelet Volume 9.9 fL (7.4-10.4); Monocytes # (auto) 0.55 K/uL (0.11-0.59); Neutrophils # (auto) 11.84 K/uL (1.4-6.5); Neutrophils % (auto) 85.3 %; Platelet Count 238 K/uL (130-400); RDW Standard Deviation 46.9 fL (36.4-46.3); Red Blood Count 4.05 M/uL (4.7-6.1); White Blood Count 13.87 K/uL (4.8-10.8)
[2021-05-20] MEDS: oxyCODONE/ACETAMINOPHEN 5mg/325mg TAB PO PRN (06:39)
[2021-05-20] MEDS: ALBUT/IPRATROP 3MG/0.5MG NEB 3 ML VIAL NEB SCH (07:02)
[2021-05-20 08:25] LABS: BUN Creatinine Ratio 23.7 (10-20); Calcium 9.1 mg/dl (8.5-10.1); Creatinine Clr Calc Pharmacy 117.1 ml/min; Est GFR (African American) 119.9 ml/min; Est GFR (Non-African American) 103.4 ml/min; Magnesium 1.8 mg/dl (1.7-2.4); Phosphorus 3.3 mg/dl (2.5-4.9); Potassium 4.3 mmol/L (3.5-5.1)
[2021-05-20] MEDS ORDERED: PANTOprazole 40 MG TAB PO SCH (09:00)
[2021-05-20] MEDS ORDERED: ASPIRIN 81 MG ECTAB PO SCH (09:00)
[2021-05-20] MEDS ORDERED: NON-FORMULARY MEDICATION (Fluticasone-Umeclidin-Vilanter [Trelegy Ellipta] 100-62.5-25 mcg INH SCH (09:00)
[2021-05-20] MEDS ORDERED: CLOPIDOGREL BISULFATE 75 MG TAB PO SCH (09:00)
[2021-05-20] MEDS ORDERED: UMECLIDINIUM BROMIDE 62.5MCG/BLISTER 7 PUFFS/INHALER INH SCH (09:00)
[2021-05-20] MEDS: FLUTICASONE/VILANTEROL 200/25MCG 14 PUFFS/INHALER INH SCH (09:08)
--- NOTE | 2021-05-20 09:24 | Critical Care Progress Note ---
Date of Service May 20, 2021 Assessment & Plan (1) Stenosis of left internal carotid artery: (2) COPD (chronic obstructive pulmonary disease): (3) Chronic hypoxemic respiratory failure: Plan: 55-year-old male past medical history of COPD, chronic hypoxic respiratory, peripheral vascular disease in the ICU s/p carotid endarterectomy done 05/19/2021 --Left carotid artery stenosis S/p left carotid endarterectomy 05/19/21 Monitor H&H Monitor for focal neurological deficit Neuro checks every 4 hours --Severe COPD Gold class D On trilogy at home Continue with same regimen follows up with Dr. Day as an outpatient PFT 03/2019, FEV1 32% predicted, DLCO 31%, RV to 40%, RV/TLC 25% --Peripheral vascular disease Continue with statin Resume Plavix tomorrow --Chronic hypoxic respiratory failure On 2 and half l oxygen at home Is noncompliant with it during the day Continue with oxygen to keep O2 saturation between 88-92% --Probable KATEY Patient is supposed to have polysomnography in June BiPAP nightly and as needed shortness of breath --Polycythemia Likely secondary as the patient is not using oxygen during the day --Prophylaxis VTE: IPC GI: Pantoprazole Lines: Right radial, peripheral Diet: Cardiac Plan: In/: Positive 672, urine output 1600 H&H is stable A gram of magnesium given to the patient Patient is hemodynamically stable He is on baseline 2 and half to 3 L during the day although he is not compliant with it Keep O2 saturation between 88-92% Patient hemodynamically stable to be downgraded to medical floor Please note the above document was generated using voice recognition software. It may contain grammatical, syntax or spelling errors. Admission and Anticipated Discharge Date Admission Date: May 19, 2021 Subjective Patient seen and examined at bedside. No acute distress, no adverse events ov ernight He did complain of mild pain at the incision site. Incision site is clean. Denies any shortness of breath No headache, no nausea vomiting Tolerated diet. He was saturating 89-90% on 3 L nasal cannula at rest sitting on the chair. Review of Systems Review of Systems: All systems reviewed & are unremarkable except as noted in Subjective Physical Exam Physical Exam: Constitutional: No acute distress HEENT: EOMI, PERRLA, left neck incision in place Respiratory system: Decreased air entry bilaterally, no rhonchi, mild crackles bilateral lower lobes, no wheeze CVS: S1-S2 positive, no murmurs or gallops Abdomen: Soft, nontender, nondistended, positive bowel sounds x4 Extremities: +2 pulses bilaterally radialis/ dorsalis pedis, no cyanosis, no edema Neuro: Awake alert oriented x3, cranial nerves 2-12 grossly intact Psych: Normal mood and affect G/U: No Maria Skin: no rashes, warm and dry Lymphatic: no cervical or axillary lymphadenopathy Results & Data Results & Data ([facility]) Vital Signs (Past 12 Hours) Vital Signs Pulse Pulse Resp BP Pulse Ox 05/20/21 08:00 93 H 12 88 L 05/20/21 07:16 85 126/72 05/20/21 07:02 87 16 91 05/20/21 07:00 87 16 124/72 91 05/20/21 06:01 84 15 116/74 93 05/20/21 06:00 83 14 93 05/20/21 05:00 81 13 104/71 92 05/20/21 04:00 85 16 126/72 90 05/20/21 03:00 89 17 103/55 L 93 05/20/21 02:00 90 15 118/80 92 05/20/21 01:00 89 14 106/66 93 05/20/21 00:00 94 H 14 93/57 L 90 05/19/21 23:28 90 16 94 05/19/21 23:20 91 H 05/19/21 23:00 94 H 12 107/75 91 05/19/21 22:00 87 14 91 Laboratory Results 05/20/21 04:51 05/20/21 07:47 Coding Level of Care Code 54473 Subs Hosp Care Lvl 3 Diagnoses Stenosis of left internal carotid artery I65.22 COPD (chronic obstructive pulmonary disease) J41.0 COPD type: chronic bronchitis Chronic bronchitis type: simple Chronic hypoxemic respiratory failure J96.11 (1) COPD (chronic obstructive pulmonary disease) COPD type: chronic bronchitis Chronic bronchitis type: simple Qualified Code(s): J41.0 - Simple chronic bronchitis
[2021-05-20] MEDS ORDERED: MAGNESIUM SULFATE / D5W 1 GM/100 ML BAG IV ONE (09:30)
--- NOTE | 2021-05-20 13:19 | Surgery Progress Note ---
Date of Service May 20, 2021 Assessment & Plan (1) Stenosis of left internal carotid artery: Plan: Pt now S/P L CEA with bovine patch. Pt doing well post op. Discussed with Dr Raymond. Will d/c home today. Admission and Anticipated Discharge Date Admission Date: May 19, 2021 Subjective 55 yo m POD #1 after L CEA with bovine patch, seen in f/u today. Pt admits L neck pain and swelling. Denies BEE, dizziness, chest pain, SOB, N/V, other complaints. Taking PO well. Ambulating in room. Review of Systems Review of Systems: All systems reviewed & are unremarkable except as noted in HPI & below Physical Exam Constitutional: WD/WN, vitals as above cooperative and comfortable; not in distress Neck: + neck tender (L neck incision +local swelling.) Respiratory: normal respiratory effort Auscultation: + diminished lung sounds and + wheezes (coarse) Cardiovascular: Rate/Rhythm: regular rate and regular rhythm Vessels: posterior tibial pulses present, dorsalis pedis pulses present and radial pulses present; + abnormal peripheral pulses Extremities: normal capillary refill; no edema Gastrointestinal (Abdomen): Inspection/Auscultation: abdomen normal to inspection and normal bowel sounds Percussion/Palpation: abdomen soft; abdomen nontender Musculoskeletal: no cyanosis or clubbing, extremities motor strength 5/5 Skin: no rashes, warm and dry + incision (L neck C/D/I); no erythema Neurologic: moves all extremities and awake; no focal motor deficits and not confused Psychiatric: A+Ox3, euthymic affect Results & Data ([facility]) Vital Signs (Past 12 Hours) Vital Signs Temp Pulse Pulse Resp BP BP Pulse Ox 05/20/21 13:08 36.8 C 87 16 127/80 84 L 05/20/21 12:00 84 107/89 05/20/21 10:38 84 16 107/89 84 L 05/20/21 10:00 87 20 87 L 05/20/21 09:00 36.8 C 90 19 92 05/20/21 08:00 93 H 12 88 L 05/20/21 07:16 85 126/72 05/20/21 07:02 87 16 91 05/20/21 07:00 87 16 124/72 91 05/20/21 06:01 84 15 116/74 93 05/20/21 06:00 83 14 93 05/20/21 05:00 81 13 104/71 92 05/20/21 04:00 85 16 126/72 90 05/20/21 03:00 89 17 103/55 L 93 05/20/21 02:00 90 15 118/80 92
--- NOTE | 2021-05-22 09:39 | Discharge Summary ---
Date of Service May 22, 2021 Admission HPI Per Admitting Provider This is [id number] gentleman who we had done an aortobifemoral bypass on in the past. He was seen in the his PCP office and found to have a carotid bruit which showed an 80 to 99% narrowing of his left internal carotid artery. He denies any symptoms of cerebrovascular insufficiency at this point. He denies any claudication. He has never had a stroke in the past. CTA confirmed a severe left carotid stenosis. Admission Exam Per Admitting Provider This patient is awake alert and oriented x3. He is in no apparent distress. His blood pressure is 126/84 in the left 140/90 on the right. He does have a left carotid bruit. His radials carotids supratemporal's are +2 bilaterally. Lungs have distant breath sounds but clear. Heart had a regular rate and rhythm. Abdominal exam is benign. His femoral pulses are +2 bilaterally. He has good capillary refill in both feet. Neurologic exam is intact to motor and sensory function. Principal Diagnosis 1. s/p L CEA with bovine patch 2. L ICA stenosis Discharge Exam Constitutional WD/WN, vitals as above cooperative and comfortable; not in distress Neck + neck tender (L neck incision +local swelling.) Respiratory normal respiratory effort Auscultation: + diminished lung sounds and + wheezes (coarse) Cardiovascular Rate/Rhythm: regular rate and regular rhythm Vessels: posterior tibial pulses present, dorsalis pedis pulses present and radial pulses present; + abnormal peripheral pulses Extremities: normal capillary refill; no edema Gastrointestinal (Abdomen) Inspection/Auscultation: abdomen normal to inspection and normal bowel sounds Percussion/Palpation: abdomen soft; abdomen nontender Musculoskeletal no cyanosis or clubbing, extremities motor strength 5/5 Skin no rashes, warm and dry + incision (L neck C/D/I); no erythema Neurologic moves all extremities and awake; no focal motor deficits and not confused Psychiatric A+Ox3, euthymic affect Discharge Data Allergies Allergy/AdvReac Type Severity Reaction Status Date / Time No Known Allergies Allergy Verified 05/19/21 07:10 Consultations 05/19/21 12:10 Consult Director Of Email Marketing Routine Procedures Performed Operation Date: 05/19/21 08:00 Actual Procedures p Left Carotid Endarterectomy with Patch(Left) - Jose Raymond MD Hospital Course (1) Stenosis of left internal carotid artery: Pt now S/P L CEA with bovine patch. Pt doing well post op day #1. Pt with out SOB and his oxygen saturation is baseline. Has oxygen to use at home. Discussed with Dr Raymond. Will d/c home today. Total Time Total Time Spent Total Time Spent (In Minutes): 0 Discharge Plan Discharge Items Patient Disposition: Home - Self-Care Reason For Visit: Severe Left Internal Carotid ARtery Stenosis Discharge Diagnosis: 1. s/p L Carotid Endarterectomy with patch 2. L ICA stenosis Condition on Discharge: Good Activity: Per Instructions section Non-emergency contact: Primary Care Provider and Surgeon Call non-emergency contact if: you have any medication questions, your pain is not controlled, your pain is concerning for you, you have a fever, your wound has increased redness and your wound has increased drainage Follow-up/Referrals: Jose Raymond MD [Physician] - (Follow up with Dr Raymond or Nava Anthony PA-C, in 2 weeks. ) Kelsey Schwartz PA-C [Primary Care Provider] - (Follow up with PCP within 2 weeks) Diet: Heart Healthy Addtl Attending Provider Instructions: SPECIAL CARE INSTRUCTIONS: Medications: * Continue to take Aspirin as directed. Incision Care: * You may shower, but do not rub incision. You may let the warm soapy water run over it. Be sure to dry the incision well after bathing. * Do not shave directly over the incision until it is healed. * DO NOT IMMERSE THE INCISION IN A TUB/POOL/etc. UNTIL HEALED. Restrictions: * Do not drive for at least one week or if you are still taking any narcotic pain medication. * Do not lift anything heavier than a gallon of milk for one week after going home. Possible Complications: * Numbness - It is normal to have some numbness around the incision. Numbness can extend beyond the incision to areas of the neck, ear and face. The numbness is due to bruising of nerves during the surgery and will gradually improve over a period of months. * Hoarseness/Difficulty Speaking and Swallowing - The bruising of nerves in the neck can also cause a hoarse voice, difficulty speaking or swallowing. This may improve over time, HOWEVER, if it continues for more than a few days please contact our office ([phone]). * Excessive Swelling - There will be some swelling immediately after surgery which usually resolves within one week. If you notice that the swelling is getting worse, notify your surgeon ([phone]). * Drainage/Bleeding - If there is any drainage or bleeding, it should be a very small amount (less than a teaspoon per day). If you have excessive bleeding or drainage from the incision, call your surgeon ([phone]) right away. ACTIVATION OF EMERGENCY MEDICAL SYSTEM: Call 911, immediately, if you experience any of the following: Warning Signs and Symptoms of Stroke: * Sudden numbness or weakness of the face, arm or leg, especially on one side of the body * Sudden confusion, trouble speaking or understanding * Sudden trouble seeing in one or both eyes * Sudden trouble walking, dizziness, loss of balance or coordination * Sudden severe headache with no cause Do not delay calling 911 if you experience any warning signs or symptoms of a stroke. Delay in seeking medical attention may affect what treatments can be given to you. Risk Factors for Stroke: You can reduce your chances of stroke by working with your medical provider to adopt a healthy lifestyle. Some specific ways to lower your chance of stroke are: * If you are a smoker, now is the time to stop smoking cigarettes * If you are diabetic, improve the control of your blood sugars * Avoid excessive amounts of alcohol * Control high blood pressure * Lose weight if you are overweight * Be sure to lead an active lifestyle * Eat a healthy diet low in salt, cholesterol and fat You should know about other risk factors for stroke that you are unable to control. These include: * Age 55 years or older * Male gender * Certain racial groups: , or / * Family History of Stroke, Mini stroke or Heart Attack * Sickle Cell Disease You will be receiving a call from the Vascular Surgery Nurse after you are discharged. FOLLOW UP VISIT: It is important for you to keep your follow up appointments with your medical provider. Keep any scheduled doctor appointments. Pending Studies at Discharge: No Stand-Alone Forms: [facility], Smoking Cessation Medications and DC Order Prescriptions: New oxycodone-acetaminophen [Percocet] 5-325 mg Tablet 1 - 2 tab PO Q4H PRN (Reason: pain) Qty: 20 RF: 0 Continued aspirin [Aspir-81] 81 mg Tablet,Delayed Release (Dr/Ec) 81 mg PO QAM RF: 0 albuterol sulfate 90 mcg/actuation Hfa Aerosol Inhaler 1 - 2 inh INHALATION UD PRN (Reason: ASTHMA) RF: 0 ipratropium-albuterol 0.5 mg-3 mg(2.5 mg base)/3 mL Solution For Nebulization 3 ml NEB Q4R PRN (Reason: shortness of breath or wheezing) Qty: 30 RF: 0 (DME) nebulizer and compressor Device See Rx Instructions .ROUTE .MEDSUPPLY Qty: 1 RF: 0 (DME) Oxygen Home Liters Per Minute See Rx Instructions .ROUTE .MEDSUPPLY Qty: 1 RF: 0 atorvastatin 20 mg Tablet 20 mg PO HS RF: 0 Trelegy Ellipta 100-62.5-25 mcg blister with device 1 inh inhalation QAM RF: 0 Spiriva with HandiHaler 18 mcg Capsule, W/Inhalation Device 1 cap INHALATION DAILY RF: 0 Discharge Orders: Discharge Order (Routine); Ordered 05/20/21 Ordered By: Nava Anthony Admission Data Admit Date/Time: 05/19/21 12:10 Attending Provider: Jose Raymond Admit Provider: Jose Raymond Primary Care Provider: Kelsey Schwartz Other Providers: Orlando Wright ; Fernando Infante ; Sixto Moreno ; Kp Day ; Clint Araujo ; Amos Olson ; Aditya Hankins ; Jamar Hanna Other Interventions: Discharge Summary Assessment (RN) Last Done: 05/20/21 13:08
== END 2021-05-20 14:00 | disposition home or self-care (01) | DRG 38 ==
LOC: ASU 06:32 → 1E 12:10
DX: D75.1 Secondary polycythemia; Z86.16 Personal history of COVID-19; R73.03 Prediabetes; I73.9 Peripheral vascular disease, unspecified; Z83.3 Family history of diabetes mellitus; J96.11 Chronic respiratory failure with hypoxia; I65.22 Occlusion and stenosis of left carotid artery; J44.9 Chronic obstructive pulmonary disease, unspecified; Z79.82 Long term (current) use of aspirin; G47.33 Obstructive sleep apnea (adult) (pediatric); I27.20 Pulmonary hypertension, unspecified; F17.210 Nicotine dependence, cigarettes, uncomplicated